=== PATIENT | male | born 1940 | race Caucasian/White ===

== ENCOUNTER 2016-03-04 | Outpatient (CLI) | payer MEDICARE, OTHER | END 2016-03-04 08:45 | disposition critical access hospital (66) | DX: R04.0 Epistaxis (principal) | CPT/HCPCS: A0425; A0429 ==

== ENCOUNTER 2016-03-04 08:53 | Emergency (ER) | payer MEDICARE, OTHER ==
[2016-03-04] MEDS ORDERED: LIDOCAINE 1%-EPI 1:100000 20 ML MDV ONE (09:38)
== END 2016-03-04 11:07 | disposition home or self-care (01) ==
DX: R04.0 Epistaxis (principal); I10 Essential (primary) hypertension; E11.9 Type 2 diabetes mellitus without complications; Z79.4 Long term (current) use of insulin; I25.10 Atherosclerotic heart disease of native coronary artery without angina pectoris; Z95.1 Presence of aortocoronary bypass graft; Z79.82 Long term (current) use of aspirin

== ENCOUNTER 2017-02-17 12:12 | Outpatient (CLI) | payer MEDICARE ==
--- NOTE | 2017-02-19 10:17 | CT Report ---
DATE OF SERVICE: 02/17/[address]: 02/17/2017 No comparison. INDICATION: Unspecified dementia without behavioral disturbance. TECHNIQUE: Noncontrast axial imaging of the head with coronal reformat. In accordance with CT protocol optimization, one or more of the following dose reduction techniques were utilized for this exam: Automated exposure control, adjustment of mA and/or KV based on patient size, or use of iterative reconstructive technique. FINDINGS There are periventricular and deep white matter low attenuating foci consistent with chronic small vessel ischemic changes. No evidence of territorial edema. No intracranial mass or acute intracranial hemorrhage. There is mild parenchymal volume loss with ex vacuo dilation of the ventricles. The paranasal sinuses and mastoid air cells appear well aerated. No calvarial fracture. Soft tissues and orbits grossly unremarkable. IMPRESSION: Chronic appearing microangiopathic changes. No evidence of acute intracranial process. TD: 02/17/2017 20:16 [place]
== END 2017-02-17 12:13 | disposition home or self-care (01) ==
LOC: DI 12:12
PROVIDERS: ATTEND Internal Medicine
DX: F03.90 Unspecified dementia, unspecified severity, without behavioral disturbance, psychotic disturbance, mood disturbance, and anxiety (principal)
CPT/HCPCS: 70450

== ENCOUNTER 2017-06-04 20:11 | Outpatient (CLI) | payer MEDICARE | END 2017-06-04 20:12 | disposition EMS.NT | LOC: EMS 20:11 | PROVIDERS: ATTEND Surgery | DX: R53.1 Weakness (principal); W18.39XA Other fall on same level, initial encounter; Y92.003 Bedroom of unspecified non-institutional (private) residence as the place of occurrence of the external cause ==

== ENCOUNTER 2017-06-30 13:53 | Outpatient (CLI) | payer MEDICARE ==
--- NOTE | 2017-06-30 17:35 | XRAY Report ---
THREE VIEW RIGHT KNEE: 06/30/2017 CLINICAL INDICATION: Persistent pain. FINDINGS: AP, lateral, sunrise views of the right knee demonstrate no evidence of fracture or dislocation. No effusion is present. No foreign body is seen in the soft tissues. IMPRESSION: NORMAL RIGHT KNEE. TD: 06/30/2017 15:26
== END 2017-06-30 13:54 | disposition home or self-care (01) ==
LOC: DI 13:53
PROVIDERS: ATTEND Internal Medicine
DX: M25.561 Pain in right knee (principal)

== ENCOUNTER 2018-05-27 14:21 | Outpatient (CLI) | payer SELFPAY | END 2018-05-27 14:22 | disposition EMS.NT | LOC: EMS 14:21 | PROVIDERS: ATTEND Surgery | DX: Z03.89 Encounter for observation for other suspected diseases and conditions ruled out (principal) ==

== ENCOUNTER 2018-09-25 10:33 | Outpatient (CLI) | payer MEDICARE, OTHER | END 2018-09-25 10:34 | disposition critical access hospital (66) | LOC: EMS 10:33 | PROVIDERS: ATTEND Surgery | DX: R55 Syncope and collapse (principal) | CPT/HCPCS: A0425; A0429 ==

== ENCOUNTER 2018-09-25 10:41 | Emergency (ER) | payer MEDICARE, OTHER ==
[2018-09-25] MEDS ORDERED: SODIUM CHLORIDE 0.9% 1,000 ML IV ONE (10:58)
--- NOTE | 2018-09-25 11:00 | ED Physician Documentation ---
PD HPI SYNCOPE - Stated complaint Stated Complaint: SYNCOPE - History obtained from History obtained from: Patient, Family - History of Present Illness Witnessed: Witnessed Timing - onset: Today Duration: Minutes Preceding symptoms: Vision changes, Light headed, Generalized weakness Associated symptoms: Vision changes Contributing factors: Other (hot shower) Injury occurred: None Similar symptoms before: Has not had sx before Recently seen: Not recently seen - Additional information Additional information: 77-year-old male with advanced dementia took his blood pressure medications this morning and then got himself into the shower. His states that she usually assists with his showers and she heard him going to the shower went in to see him in the shower and he stated that he felt a bit faint and wanted to get out. She is brought him here to the emergency department now for evaluation. The patient denies any use of Viagra. He states that shower was hot. Review of Systems Constitutional: denies: Fever Eyes: denies: Decreased vision Ears: denies: Ear pain Nose: denies: Congestion Throat: denies: Sore throat Cardiac: denies: Chest pain / pressure Respiratory: denies: Dyspnea, Cough GI: denies: Abdominal Pain, Nausea, Vomiting : denies: Dysuria, Frequency Skin: denies: Rash Musculoskeletal: denies: Neck pain, Back pain Neurologic: reports: Generalized weakness PD PAST MEDICAL HISTORY - Past Medical History Cardiovascular: Hypertension, High cholesterol, Coronary artery disease Endocrine/Autoimmune: Type 2 diabetes GI: None : None Musculoskeletal: Chronic back pain - Past Surgical History Past Surgical History: Yes Ortho: Shoulder arthroplasty, Spine surgery Cardiovascular: CABG - Present Medications Home Medications: Ambulatory Orders Medication Instructions Recorded Confirmed Hydrchlorthazide 12.5 mg PO DAILY 08/14/12 08/14/12 Insulin Glargine,Hum.rec.anlog 12 HS 08/14/12 08/14/12 [Lantus Solostar] Metformin HCl 1,000 mg PO BID 08/14/12 08/14/12 Atorvastatin Calcium 20 mg PO DAILY 03/04/16 03/04/16 Carvedilol 3.125 mg PO DAILY 03/04/16 03/04/16 Losartan Potassium 100 mg PO DAILY 03/04/16 03/04/16 Omeprazole 20 mg PO DAILY 03/04/16 03/04/16 - Allergies Allergies/Adverse Reactions: Allergies Allergy/AdvReac Type Severity Reaction Status Date / Time atenolol AdvReac Mild Nausea Verified 09/25/18 10:59 - Social History Does the pt smoke?: No Smoking Status: Never smoker Does the pt drink ETOH?: Yes Does the pt have substance abuse?: No - POLST Patient has POLST: No PD ED PE NORMAL - Vitals Vital signs reviewed: Yes (hypertensive ) - General General: No acute distress, Well developed/nourished - HEENT HEENT: Atraumatic, PERRL, EOMI - Neck Neck: Supple, no meningeal sign, No bony TTP - Cardiac Cardiac: RRR, No murmur - Respiratory Respiratory: No respiratory distress, Clear bilaterally - Abdomen Abdomen: Soft, Non tender, No organomegaly - Back Back: No CVA TTP, No spinal TTP - Derm Derm: Normal color, Warm and dry, No rash - Extremities Extremities: No deformity, No edema - Neuro Neuro: suction plate roller hand 2-12 intact, No motor deficit, No sensory deficit, Normal speech Eye Opening: Spontaneous Motor: Obeys Commands Verbal: Confused GCS Score: 14 - Psych Psych: Normal mood, Normal affect Results - Vitals Vitals: Vital Signs - 24 hr 09/25/18 09/25/18 10:54 12:32 Temperature 36.8 C Heart Rate 70 64 Respiratory 18 12 Rate Blood Pressure 134/68 H 145/84 H O2 Saturation 99 98 Oxygen O2 Source Room air - EKG (time done) 1048 Rate: Rate (enter#) (62) Rhythm: NSR Intervals: LBBB Compare to prior EKG: Unchanged from prior EKG (SPT 08-14-12 no sig change ) Computer interpretation: Agree with computer - Labs Labs: Laboratory Tests 09/25/18 09/25/18 11:21 11:21 WBC 7.2 RBC 4.86 Hgb 14.0 Hct 42.8 MCV 88.1 MCH 28.8 MCHC 32.7 RDW 13.2 Plt Count 182 MPV 10.0 Neut # (Auto) 4.3 Lymph # (Auto) 2.3 [place] # (Auto) 0.5 Eos # (Auto) 0.1 Baso # (Auto) 0.0 Absolute Nucleated RBC 0.00 Nucleated RBC % 0.0 Sodium 142 Potassium 4.8 Chloride 108 Carbon Dioxide 22 Anion Gap 12.0 BUN 23 H Creatinine 1.4 H Estimated GFR (MDRD) 49 L Glucose 168 H Calcium 8.9 Total Bilirubin 0.6 AST 17 ALT 20 Alkaline Phosphatase 50 Total Protein 7.2 Albumin 3.9 Globulin 3.3 Albumin/Globulin Ratio 1.2 Lipase 33 Procedures - IVC sono (time) 1057 Bedside IVC sono: IVC measures (cm) (1.04), IVC collapsed c insp (cm) (complete), Dehydration (ests 1-2 liter deficit) PD MEDICAL DECISION MAKING - ED course Complexity details: reviewed results, re-evaluated patient, considered differential, d/w patient, d/w family ED course: 77-year-old male with history of hypertension and advanced dementia got into the shower and felt faint he did not have a syncopal episode he was transported to [facility] by ambulance and he is administered saline after he is found to be dehydrated on interrogation of the inferior vena cava. He feels much improved at the conclusion of treatment. Departure - Departure Disposition: 01 Home, Self Care Clinical Impression: Dehydration Condition: Stable Instructions: ED Dehydration Follow-Up: Morro Nunez MD [Primary Care Provider] - Discharge Date/Time: 09/25/18 12:38
[2018-09-25 11:34] LABS: BASOPHILS % (AUTO) 0.6 %; EOSINOPHILS # (AUTO) 0.1 10^3/uL (0.0-0.7); EOSINOPHILS % (AUTO) 1.8 %; LYMPHOCYTES # (AUTO) 2.3 10^3/uL (1.5-3.5); LYMPHOCYTES % (AUTO) 31.2 %; MEAN CORPUSCULAR HEMOGLOBIN 28.8 pg (27.0-31.0); MEAN CORPUSCULAR HGB CONC 32.7 g/dL (32.0-36.0); MEAN CORPUSCULAR VOLUME 88.1 fL (80.0-94.0); MONOCYTES # (AUTO) 0.5 10^3/uL (0.0-1.0); MONOCYTES % (AUTO) 7.1 %; NEUTROPHILS # (AUTO) 4.3 10^3/uL (1.5-6.6); NEUTROPHILS % (AUTO) 58.9 %; PLT - PLATELET COUNT 182 10^3/uL (130-450); RED BLOOD COUNT 4.86 10^6/uL (4.70-6.10); RED CELL DISTRIBUTION WIDTH 13.2 % (12.0-15.0); WHITE BLOOD COUNT 7.2 x10^3/uL (4.8-10.8)
[2018-09-25 11:55] LABS: ALBUMIN 3.9 g/dL (3.2-5.5); ALBUMIN/GLOBULIN RATIO 1.2 (1.0-2.2); BILIRUBIN,TOTAL 0.6 mg/dL (0.2-1.0); CALCIUM 8.9 mg/dL (8.5-10.3); CREATININE 1.4 mg/dL (0.6-1.2); TOTAL PROTEIN 7.2 g/dL (6.7-8.2)
[2018-09-25 12:34] VITALS: BP 145/84
== END 2018-09-25 12:38 | disposition home or self-care (01) ==
LOC: EDUNIT# → ED 10:41
DX: E86.0 Dehydration (principal); I44.7 Left bundle-branch block, unspecified; I10 Essential (primary) hypertension; E11.9 Type 2 diabetes mellitus without complications; Z79.4 Long term (current) use of insulin; F03.90 Unspecified dementia, unspecified severity, without behavioral disturbance, psychotic disturbance, mood disturbance, and anxiety
CPT/HCPCS: 36415; 80053; 83690; 85025; 93005; 96360; 99284

== ENCOUNTER 2019-11-02 12:54 | Outpatient (CLI) | payer MEDICARE, OTHER | END 2019-11-02 12:55 | disposition critical access hospital (66) | LOC: EMS 12:54 | PROVIDERS: ATTEND Surgery | DX: R55 Syncope and collapse (principal); R53.1 Weakness | CPT/HCPCS: A0425; A0427 ==

== ENCOUNTER 2019-11-02 13:05 | Inpatient (IN) | payer MEDICARE, OTHER ==
--- NOTE | 2019-11-02 13:14 | ED Physician Documentation ---
PD HPI SYNCOPE - Stated complaint Stated Complaint: POSS SYNCOPE - History obtained from History obtained from: Patient, EMS - Additional information Additional information: History initially is from the patient and EMS, the is not here initially but my understanding is that she is coming. This is a 78-year-old gentleman with history of four-vessel bypass and dementia who either had a brief syncopal episode or was just dizzy and weak getting off the toilet today. Report from the paramedics is that he was also "out of it" last night. Patient says he remembers the episode but is a poor historian generally. Review of Systems Unable to obtain: Dementia PD PAST MEDICAL HISTORY - Past Medical History Cardiovascular: Hypertension, High cholesterol, Coronary artery disease Endocrine/Autoimmune: Type 2 diabetes GI: None : None Musculoskeletal: Chronic back pain - Past Surgical History Past Surgical History: Yes Ortho: Shoulder arthroplasty, Spine surgery Cardiovascular: CABG - Present Medications Home Medications: Ambulatory Orders Medication Instructions Recorded Confirmed Hydrchlorthazide 12.5 mg PO DAILY 08/14/12 08/14/12 Insulin Glargine,Hum.rec.anlog 12 HS 08/14/12 08/14/12 [Lantus Solostar] Metformin HCl 1,000 mg PO BID 08/14/12 08/14/12 Atorvastatin Calcium 20 mg PO DAILY 03/04/16 03/04/16 Losartan Potassium 100 mg PO DAILY 03/04/16 03/04/16 Omeprazole 20 mg PO DAILY 03/04/16 03/04/16 carvediloL [Carvedilol] 3.125 mg PO DAILY 03/04/16 03/04/16 - Allergies Allergies/Adverse Reactions: Allergies Allergy/AdvReac Type Severity Reaction Status Date / Time atenolol AdvReac Mild Nausea Verified 09/25/18 10:59 - Social History Does the pt smoke?: No Smoking Status: Former smoker Does the pt drink ETOH?: Yes Does the pt have substance abuse?: No - POLST Patient has POLST: Yes POLST Status: Limited Interventions (but wants CPR) PD ED PE NORMAL - Vitals Vital signs reviewed: Yes - General General: No acute distress, Other (He is alert and oriented to person and place but not time or events.) - HEENT HEENT: PERRL, EOMI - Neck Neck: Supple, no meningeal sign, No bony TTP - Cardiac Cardiac: RRR, No murmur, Other (Well-healed sternotomy scar) - Respiratory Respiratory: No respiratory distress, Clear bilaterally - Abdomen Abdomen: Non tender - Derm Derm: Normal color, Warm and dry, No rash - Extremities Extremities: No edema, No calf tenderness / cord - Neuro Neuro: bulldozer/loader/compactor/scraper 2-12 intact, No motor deficit, No sensory deficit, Normal speech Eye Opening: Spontaneous Motor: Obeys Commands Verbal: Confused GCS Score: 14 Results - Vitals Vitals: Vital Signs - 24 hr 11/02/19 11/02/19 11/02/19 13:06 13:20 15:27 Temperature 36.3 C L Heart Rate 83 83 74 Respiratory 16 16 22 Rate Blood Pressure 124/59 L 124/59 L 120/62 O2 Saturation 99 92 93 Oxygen O2 Source Room air - EKG (time done) 1317 Rate: Rate (enter#) (81) Rhythm: NSR Intervals: LBBB Computer interpretation: Agree with computer - Labs Labs: Laboratory Tests 11/02/19 11/02/19 11/02/19 13:30 13:30 13:30 WBC 5.0 RBC 4.69 L Hgb 14.0 Hct 42.0 MCV 89.6 MCH 29.9 MCHC 33.3 RDW 13.6 Plt Count 106 L MPV 10.2 Neut # (Auto) Not Reportable Lymph # (Auto) Not Reportable [place] # (Auto) Not Reportable Eos # (Auto) Not Reportable Baso # (Auto) Not Reportable Absolute Nucleated RBC Not Reportable Total Counted 100 Band Neuts % (Manual) 3 Abnorm Lymph % (Manual) 0 Nucleated RBC % Not Reportable Neutrophils # (Manual) 3.9 Lymphocytes # (Manual) 0.9 L Monocytes # (Manual) 0.2 Eosinophils # (Manual) 0.1 Basophils # (Manual) 0.0 Differential Comment MANUAL DIFFERENTIAL Manual Slide Review Indicated Platelet Estimate NORMAL (130-450,000) Platelet Morphology 1+ LARGE PLATELETS RBC Morph Micro Appear NORMAL APPEARANCE PT 13.9 H INR 1.3 H D-Dimer > 1050.0 H Sodium 136 Potassium 4.0 Chloride 98 L Carbon Dioxide 22 Anion Gap 16.0 H BUN 25 H Creatinine 1.5 H Estimated GFR (MDRD) 45 L Glucose 207 H Lactic Acid Calcium 8.8 Total Bilirubin 1.3 H AST 28 ALT 29 Alkaline Phosphatase 45 Troponin I High Sens Total Protein 7.3 Albumin 3.7 Globulin 3.6 Albumin/Globulin Ratio 1.0 Lipase 21 L 11/02/19 11/02/19 13:30 13:30 WBC RBC Hgb Hct MCV MCH MCHC RDW Plt Count MPV Neut # (Auto) Lymph # (Auto) [place] # (Auto) Eos # (Auto) Baso # (Auto) Absolute Nucleated RBC Total Counted Band Neuts % (Manual) Abnorm Lymph % (Manual) Nucleated RBC % Neutrophils # (Manual) Lymphocytes # (Manual) Monocytes # (Manual) Eosinophils # (Manual) Basophils # (Manual) Differential Comment Manual Slide Review Platelet Estimate Platelet Morphology RBC Morph Micro Appear PT INR D-Dimer Sodium Potassium Chloride Carbon Dioxide Anion Gap BUN Creatinine Estimated GFR (MDRD) Glucose Lactic Acid 2.8 H Calcium Total Bilirubin AST ALT Alkaline Phosphatase Troponin I High Sens 122.3 H* Total Protein Albumin Globulin Albumin/Globulin Ratio Lipase - Rads (name of study) CT PA Radiology: EMP read contemporaneously (Bilateral PEs, especially left lower lobe) PD MEDICAL DECISION MAKING - ED course ED course: arrived and I spoke with her about 1:30 PM. She said that he was agitated and confused more than normal last night and today had a fever of 101.8 and then had a several minute episode of syncope and was generally weak. No reported cough or other complaints. His troponin was positive but his EKG was nonischemic. He did not complain of chest pain, but he is not a great historian. His sats were notable though, vacillating between 88 and 92% on the monitor for the most part. His d-dimer is quite positive and sent for CTPA showing moderate clot burden. Heparin bolus and drip were started. PESI score 167 pts, Class V (age/male/increased disorientation, sats at times down to 88% RA). Spoke with Dr. Tyson for admission at 4:29 PM. Departure - Departure Disposition: 66 [facility] DC/Xfer Clinical Impression: Weakness Pulmonary embolism Qualifiers: Pulmonary embolism type: other Chronicity: acute Acute cor pulmonale presence: unspecified Qualified Code(s): I26.99 - Other pulmonary embolism without acute cor pulmonale Dementia Qualifiers: Dementia type: unspecified type Dementia behavioral disturbance: without behavioral disturbance Qualified Code(s): F03.90 - Unspecified dementia without behavioral disturbance Condition: Serious
[2019-11-02 13:39] LABS: BASOPHILS % (AUTO) 0.4 %; EOSINOPHILS % (AUTO) 0.4 %; LYMPHOCYTES % (AUTO) 16.5 %; MEAN CORPUSCULAR HEMOGLOBIN 29.9 pg (27.0-31.0); MEAN CORPUSCULAR HGB CONC 33.3 g/dL (32.0-36.0); MEAN CORPUSCULAR VOLUME 89.6 fL (80.0-94.0); MEAN PLATELET VOLUME 10.2 fL (7.4-11.4); NEUTROPHILS % (AUTO) 75.9 %; PLT - PLATELET COUNT 106 10^3/uL (130-450); RED BLOOD COUNT 4.69 10^6/uL (4.70-6.10); RED CELL DISTRIBUTION WIDTH 13.6 % (12.0-15.0)
[2019-11-02 13:44] LABS: ABNORMAL LYMPHS % (MANUAL) 0 %
[2019-11-02 13:56] LABS: ALBUMIN 3.7 g/dL (3.2-5.5); BILIRUBIN,TOTAL 1.3 mg/dL (0.2-1.0); CALCIUM 8.8 mg/dL (8.5-10.3); CREATININE 1.5 mg/dL (0.6-1.2); TOTAL PROTEIN 7.3 g/dL (6.7-8.2)
--- NOTE | 2019-11-02 13:57 | XRAY Report ---
PROCEDURE: Chest 1 View X-Ray INDICATIONS: Syncope TECHNIQUE: One view of the chest was acquired. COMPARISON: None FINDINGS: Surgical changes and devices: Post CABG changes are seen. Postoperative change of the left shoulder can be seen. Lungs and pleura: An incomplete inspiratory result is noted, with low lung volumes and crowding of t he vascular markings. No focal infiltrates are seen. No large pneumothorax or large pleural effusion can be seen. Mediastinum: Mediastinal contours appear normal. Heart size is normal. Bones and chest wall: No suspicious bony lesions. Age-appropriate degenerative changes are seen. O verlying soft tissues appear unremarkable. IMPRESSION: Unremarkable portable chest for age, with note made of postoperative and degenerative change. Reviewed by: Eitan Castillo MD on 11/02/2019 12:56 PM [place] Approved by: Eitan Castillo MD on 11/02/2019 12:56 PM [place] Station ID: [id number]
[2019-11-02 14:05] LABS: BAND NEUTROPHILS % (MANUAL) 3 %; DIFFERENTIAL COMMENT MANUAL DIFFERENTIAL; EOSINOPHILS # (MANUAL) 0.1 10^3/uL (0-0.7); LYMPHOCYTES # (MANUAL) 0.9 10^3/uL (1.5-3.5); LYMPHOCYTES % (MANUAL) 17 %; MONOCYTES # (MANUAL) 0.2 10^3/uL (0.0-1.0); PLATELET ESTIMATE, MANUAL NORMAL (130-450,000) (NORMAL); PLATELET MORPHOLOGY 1+ LARGE PLATELETS (NORMAL); RBC MORPHOLOGY (MULTIPLE) NORMAL APPEARANCE (NORMAL)
[2019-11-02] MEDS ORDERED: HEPARIN 5,000 UNIT/ML VIAL IVP STA (14:18)
[2019-11-02] MEDS ORDERED: METOPROLOL TARTRATE 50 MG TABLET PO STA (14:18)
[2019-11-02] MEDS ORDERED: HEPARIN 25,000 UNITS/500 ML PREMIX IV SCH (15:00)
[2019-11-02 15:15] LABS: INR 1.3 (0.8-1.2); PT - PROTHROMBIN TIME 13.9 secs (9.9-12.6)
[2019-11-02 15:28] LABS: D-DIMER > 1050.0 ng/mL (200.0-255.0)
[2019-11-02] MEDS ORDERED: SODIUM CHLORIDE FLUSH 0.9% 10 ML SYRINGE IVP PRN (16:26)
[2019-11-02] MEDS ORDERED: oxyCODONE 5 MG TABLET PO PRN (16:26)
[2019-11-02] MEDS ORDERED: ONDANSETRON ODT 4 MG TABLET TL PRN (16:26)
[2019-11-02] MEDS ORDERED: ONDANSETRON 4 MG/2 ML VIAL IVP PRN (16:26)
[2019-11-02] MEDS ORDERED: IOVERSOL 320 100 ML VIAL IVP ONE (16:38)
--- NOTE | 2019-11-02 16:47 | CT Report ---
PROCEDURE: ANGIO CHEST W/WO INDICATIONS: dyspnea, low sat high dimer CONTRAST: IV CONTRAST: Optiray 320 ml: 66 PO CONTRAST: *NO PO CONTRAST TECHNIQUE: After the administration of intravenous contrast, 2 mm thick sections acquired from the pulmonary api cuca to the posterior costophrenic angles. 3-dimensional maximum intensity projection (MIP) coronal a nd sagittal reformats were then acquired through the thorax. For radiation dose reduction, the follow ing was used: automated exposure control, adjustment of mA and/or kV according to patient size. COMPARISON: None. FINDINGS: Image quality: Image degraded by respiratory motion artifact. Pulmonary arteries: There are intraluminal filling defects involving the proximal left lower lobar p ulmonary arteries extending into the basilar segmental pulmonary arteries. There are also intralumina l filling defects involving the left upper lobe segmental pulmonary arteries. Additionally, intralumi nal filling defects are noted in the basilar segments of the right lower lobe. No enlargement of the main pulmonary artery to suggest acute right-sided heart strain. No flattening of the interventricula r septum. No reflux of contrast into the IVC. Lungs and pleura: Patchy bibasilar opacities. There is a small peripheral consolidation involving the superior segment of the left upper lobe measuring approximately 1.4 cm in transverse dimension and 1 .1 cm in AP dimension. No pneumothorax. No pleural effusion. Central and peripheral airways are pat ent. Mediastinum: Heart size is enlarged, without pericardial effusion. Atherosclerotic calcifications o f the aortic arch and coronary arteries are visualized. Postoperative changes from prior sternotomy a nd revascularization procedure. No mediastinal or hilar adenopathy. Thoracic aorta is normal in latricia rhianna and enhancement. Esophagus is normal in caliber, without hiatal hernia. Bones and chest wall: No suspicious bony lesions. Ribs and thoracic spine appear intact throughout. The thyroid is normal. No axillary or supraclavicular adenopathy. Abdomen: Visualized upper abdominal solid organs appear normal in the early arterial phase of enhanc ement. IMPRESSION: 1. Acute pulmonary emboli involving the left lower lobar pulmonary arteries, left basilar segmental p ulmonary arteries, and left upper lobe segmental pulmonary arteries. Additional acute pulmonary embol i noted basilar segmental pulmonary arteries of right lower lobe. No acute right-sided heart strain i dentified. 2. A 1.4 x 1.1 cm peripheral, pleural-based consolidation superior segment of the left lower lobe whi ch may represent a pulmonary infarction. Other considerations include pneumonia versus neoplastic pro cess. Follow-up imaging recommended. 3. Mild cardiomegaly and changes from previous coronary arterial bypass procedure. Findings were discussed with Dr. Real of the emergency department at 1640 hrs. Reviewed by: Ernesto Lagunas MD on 11/02/2019 4:46 PM PDT Approved by: Ernesto Lagunas MD on 11/02/2019 4:46 PM PDT Station ID: [id number]
--- NOTE | 2019-11-02 16:50 | HISTORY & PHYSICAL EXAMINATION ---
Chief Complaint - Chief Complaint Chief Complaint: syncope History of Present Illness - Admitted From Admitted From:: Home/EMS/Er - History Obtained From Records Reviewed: [facility] History obtained from: Dr. Real Exam Limitations: Memory - History of Present Illness HPI Comment/Other: He lives at home with his and she takes care of him due to his dementia. He is able to do his ADLs with prompting and is described as healthy. Last night he was described as "not himself". he wouldn't stay asleep, seemed upset, but no specific complaints. Up and down. No recent change in diet or meds. No fever, cp, sob, abd pain. Today, as he was on the toilet, had syncope so brought to ER. Seen by Dr. Real who found hypoxia and elevated troponin. EKG without acute changes. patient was noncontibutory for the history. D Dimer was elevated in followup and found to have a large left sided PE on CTA. PESI score is high and he is brought in for treatment. is described as NOT wanting transfer for procedures. History - Past Medical History Cardiovascular: reports: Hypertension, High cholesterol, Coronary artery disease, Other (respiratory arrest with shoulder surgery, twice) Respiratory: reports: Sleep apnea (severe, dx in 2003 in [place] and repeat study 2012 ), CPAP use Endocrine/Autoimmune: reports: Type 2 diabetes GI: reports: None : reports: None HEENT: reports: Chronic sinusitis (with turbinate reduction under local with balloon sinuplasty of deviated septum) Psych: reports: Claustrophobia Musculoskeletal: reports: Osteoarthritis (both shoulders), Chronic back pain (with hx of lumbar fusion) MRSA Hx?: No - Past Surgical History General: reports: Appendectomy Ortho: reports: Shoulder arthroplasty (left 2014 twice with respiratory arrest twice), Spine surgery (lumbar fusion) Cardiovascular: reports: CABG - Family & Social History Family History Comment/Other: Dad at age 61 but he cannot remember of what. Mom at age 80, he thinks of old age. Neither parent had hypercoagulable disorder but he just cannot quite remember. 1 brother and 2 sisters are healthy, he thinks. 3 children are healthy, he thinks. Living arrangement: At home Living Situation: With spouse/s.o. 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 Came here approximately 2011. He is from [facility]. Spent his entire life there. Came up here to [place] an uncle and [place]. . Lives in [place]. Smoked 2 ppd for 20 years and quite 1998. 1 drink a month. No hx of recreational substance abuse. - Substance History Use: Uses substance without health or social issues: NONE Abuse: Recurrent use of substance despite neg consequences: NONE Dependence: Experiences withdrawal or developed tolerances: NONE - POLST Patient has POLST: Yes POLST Status: Limited Interventions (but wants CPR) Meds/Allgy - Home Medications Home Medications: Ambulatory Orders Medication Instructions Recorded Confirmed Hydrchlorthazide 12.5 mg PO DAILY 08/14/12 08/14/12 Insulin Glargine,Hum.rec.anlog 12 HS 08/14/12 08/14/12 [Lantus Solostar] Metformin HCl 1,000 mg PO BID 08/14/12 08/14/12 Atorvastatin Calcium 20 mg PO DAILY 03/04/16 03/04/16 Losartan Potassium 100 mg PO DAILY 03/04/16 03/04/16 Omeprazole 20 mg PO DAILY 03/04/16 03/04/16 carvediloL [Carvedilol] 3.125 mg PO DAILY 03/04/16 03/04/16 - Allergies Allergies/Adverse Reactions: Allergies Allergy/AdvReac Type Severity Reaction Status Date / Time atenolol AdvReac Mild Nausea Verified 09/25/18 10:59 Review of Systems - Constitutional Constitutional: denies: Fatigue, Fever, Chills, Malaise, Poor appetite - Eyes Eyes: reports: Vision loss (Chronic over the years he says). denies: Pain, Irritation, Amaurosis, Blurred vision - Ears, Nose & Throat Ears, Nose & Throat: reports: Hearing loss (Mild). denies: Hearing aids, Nasal congestion, Postnasal drainage, Dentures, Sore throat, Hoarseness - Cardiovascular Cariovascular: reports: Syncope (But he cannot remember that he passed out on the toilet this morning. He does not remember it happening.). denies: Pa lpitations, Chest pain, Edema, Lightheadedness, Exertional dyspnea, Decr. exercise tolerance - Respiratory Respiratory: reports: Snoring, Apnea. denies: Cough, Sputum production, Wheezing, SOB at rest, SOB with exertion - Gastrointestinal Gastrointestinal: denies: Abdominal pain, Abdominal distention, Constipation, Diarrhea, Change in bowel habits - Genitourinary Genitourinary: reports: Frequency (Drives him crazy. Is been ongoing for years.), Urgency, Incontinence, Nocturia. denies: Dysuria - Musculoskeletal Musculoskeletal: reports: Back pain (Is mild. He does not feel it limits him.), Joint pain (Shoulders, knees). denies: Muscle pain, Muscle aches, Stiffness - Integumentary Integumentary: denies: Rash, Pruritis, Lesions, Dryness - Neurological Neurological: reports: Memory problems, Pre-existing deficit. denies: General weakness, Focal weakness, Headache, Dizziness - Psychiatric Psychiatric: denies: Depression, Anxiety, Suicidal, Hallucinations, Homicidal - Endocrine Endocrine: denies: Polyuria, Polydypsia, Polyphagia - Hematologic/Lymphatic Hematologic/Lymphatic: denies: Anemia, Bruising, Petechiae, Blood clots Prior Level of Functionality: has told the emergency room physician that she is with him 08/09. She takes care of him. He protest and says that he does not need "that much help". He is kaye and maintaining that he takes care of himself with regards to feeding, dressing, going to the bathroom. He can take his own baths. He cannot remember if he drives on his own or not. He denies any durable medical equipment. Exam - Vital Signs Reviewed Vital Signs: Yes Vital Signs: Vital Signs x48h Temp Pulse Resp BP Pulse Ox 11/02/19 15:27 74 22 120/62 93 11/02/19 13:20 83 16 124/59 L 92 11/02/19 13:06 36.3 C L 83 16 124/59 L 99 - Physical Exam General Appearance: positive: No acute distress, Alert, Other (sitting up eating dinner and watching a football game, "call me Art." has left since she doesn't like to drive at night. 5'10" and 102 kg. Looks stated age. Male pattern baldness.) Eyes Bilateral: positive: PERRL, EOMI ENT: positive: Pharynx nml Neck: positive: No JVD. negative: Stiff neck Respiratory: positive: Chest non-tender, No respiratory distress. negative: Wheezes, Rales, Rhonchi Cardiovascular: positive: Regular rate & rhythm, Systolic murmur. negative: Gallop/S4, Friction rub Peripheral Pulses: positive: 1+ Abdomen: positive: Non-tender, No organomegaly, Nml bowel sounds, No distention, Other (moderately overweight panus) Skin: positive: Warm, Dry Extremities: positive: Full ROM, No pedal edema. negative: Hira's sign/cords Neurologic/Psychiatric: positive: CN's nml (2-12), Motor nml, Disoriented to time, Other (He protest the fact that he has dementia. He says "my memory is just fine". But when I point out to him that he cannot tell me what his parents of, or is hesitant about when he came to live here, he does admit that he has some memory problems.) Conclusion/Plan - Problem List (1) Pulmonary embolism Conclusion/Plan: causing syncope. Plan: no provoking cause. He does not have hx of malignancy, nor is he on hormone therapy that would cause this. No hx of hypercoagulable disorder. Start lovenox but reduce dose from 80 mg bid to 60 mg bid due to GFR of 45. no tpa. Qualifiers: Pulmonary embolism type: other Chronicity: acute Acute cor pulmonale presence: unspecified Qualified Code(s): I26.99 - Other pulmonary embolism without acute cor pulmonale (2) Elevated troponin Conclusion/Plan: with a hx of CAD and ACB x 4. No hx of CHF. No current pain symptoms and EKG is neg. Plan: repeat troponins to trend. (3) VESTA on CPAP Conclusion/Plan: get CPAP from home (4) HTN (hypertension) Conclusion/Plan: no hx of CHF on list of problems and he denies any symptoms or hx of CHF, but he is on beta sindi and ARB. Will check with and get hx of old ECHO if possible. Plan: resume betablocker tonight and both to be given in am. Qualifiers: Hypertension type: essential hypertension Qualified Code(s): I10 - Essential (primary) hypertension (5) Type 2 diabetes mellitus, controlled Conclusion/Plan: hold off on glucophage while here. A1c. SS insulin. Qualifiers: Diabetes mellitus long-term insulin use: without regulatory affairs assistant use Diabetes mellitus complication status: without complication Qualified Code(s): E11.9 - Type 2 diabetes mellitus without complications (6) CKD (chronic kidney disease) stage 3, GFR 30-59 ml/min Conclusion/Plan: Since 2012 creat rising. Was 1.0>>1.4 and today 1.5. Plan: Monitor daily avoid nephrotoxic meds. (7) BPH (benign prostatic hyperplasia) Conclusion/Plan: I don't think he has frequency from hyperglycemia since his gluose in controlled. Plan: add flomax. Qualifiers: Lower urinary tract symptom presence: symptoms present - Lab Results Lab results reviewed: Yes Fish Bones: 11/02/19 13:30 11/02/19 13:30 - Diagnostic Imaging Results Diagnostic Imaging Results: positive: Final report reviewed Diagnostic Imaging Results Comments: CXR is unremarkable CTA of chest with acute PE of LLL pulmonary arteries, left basilar segmental pul arteries, and LYLA semental pulmonary arteries. Additional acute PE noted basilar segmental pulmonary arteries of RLL. No acute right sided strain. Possible pulm infarction of LLL with pleural based consolidation supeerior seg of LLL. - EKG Results EKG Interpreted Independently: No EKG Comparison: No prior EKG Core Measures - Anticipated LOS I expect patient to be DC'd or transferred within 96 hours.: Yes - DVT/VTE - Prophylaxis VTE/DVT Device ordered at admit?: Yes
[2019-11-02] MEDS ORDERED: SODIUM CHLORIDE 0.9% 1,000 ML IV SCH (17:00)
[2019-11-02] MEDS: SODIUM CHLORIDE FLUSH 0.9% 10 ML SYRINGE IVP SCH (18:23)
[2019-11-02] MEDS: TAMSULOSIN 0.4 MG CAPSULE PO SCH (20:34)
[2019-11-02] MEDS: ENOXAPARIN 100 MG/ML SYRINGE SUBQ SCH (20:34)
[2019-11-02] MEDS: carvediloL 3.125 MG TABLET PO SCH (20:34)
[2019-11-02] MEDS ORDERED: INSULIN ASPART 300 UNIT/3 ML PEN SUBQ SCH (21:00)
[2019-11-03] MEDS: SODIUM CHLORIDE FLUSH 0.9% 10 ML SYRINGE IVP SCH ×3 (02:06→15:53)
[2019-11-03 05:26] LABS: EOSINOPHILS # (AUTO) 0.1 10^3/uL (0.0-0.7); EOSINOPHILS % (AUTO) 2.3 %; HGB - HEMOGLOBIN 11.9 g/dL (14.0-18.0); MEAN CORPUSCULAR HEMOGLOBIN 28.9 pg (27.0-31.0); MEAN CORPUSCULAR HGB CONC 32.8 g/dL (32.0-36.0); MEAN CORPUSCULAR VOLUME 88.1 fL (80.0-94.0); MEAN PLATELET VOLUME 10.4 fL (7.4-11.4); MONOCYTES # (AUTO) 0.4 10^3/uL (0.0-1.0); MONOCYTES % (AUTO) 9.1 %; NEUTROPHILS # (AUTO) 2.4 10^3/uL (1.5-6.6); NEUTROPHILS % (AUTO) 63.1 %; PLT - PLATELET COUNT 108 10^3/uL (130-450); RED BLOOD COUNT 4.12 10^6/uL (4.70-6.10); RED CELL DISTRIBUTION WIDTH 13.5 % (12.0-15.0); WHITE BLOOD COUNT 3.8 x10^3/uL (4.8-10.8)
[2019-11-03 05:36] LABS: CALCIUM 8.2 mg/dL (8.5-10.3); CREATININE 1.2 mg/dL (0.6-1.2); MAGNESIUM 1.6 mg/dL (1.7-2.8); PHOSPHORUS 2.2 mg/dL (2.5-4.6)
[2019-11-03] MEDS: ACETAMINOPHEN 325 MG TABLET PO PRN (05:37)
[2019-11-03] MEDS ORDERED: POTASSIUM CHLORIDE 20 MEQ TABLET PO SCH (06:44)
[2019-11-03] MEDS ORDERED: NEUTRA-PHOS 250 MG TABLET PO SCH (07:00)
[2019-11-03] MEDS ORDERED: MAGNESIUM OXIDE 400 MG TABLET PO SCH (07:00)
[2019-11-03] MEDS: LOSARTAN 50 MG TABLET PO SCH (10:24)
[2019-11-03] MEDS: TAMSULOSIN 0.4 MG CAPSULE PO SCH (10:24)
[2019-11-03] MEDS: ENOXAPARIN 100 MG/ML SYRINGE SUBQ SCH ×2 (10:24→21:05)
[2019-11-03] MEDS: carvediloL 3.125 MG TABLET PO SCH ×2 (10:24→21:05)
[2019-11-03] MEDS: INSULIN ASPART 300 UNIT/3 ML PEN SUBQ SCH ×4 (10:25→21:05)
[2019-11-03 11:59] LABS: HEMOGLOBIN A1c% 6.4 % (4.27-6.07)
[2019-11-03 12:19] LABS: BILIRUBIN,URINE NEGATIVE (NEGATIVE); GLUCOSE, URINE (UA) NEGATIVE (NEGATIVE); KETONES,URINE (UA) NEGATIVE (NEGATIVE); LEUKOCYTE ESTERASE, URINE NEGATIVE (NEGATIVE); NITRITE,URINE NEGATIVE (NEGATIVE); OCCULT BLOOD,URINE SMALL (NEGATIVE); PH,URINE 5.5 PH (5.0-7.5); PROTEIN,URINE 30 mg/dL (NEGATIVE); UROBILINOGEN,URINE 0.2 (NORMAL) E.U./dL (NORMAL)
[2019-11-03 12:31] LABS: BACTERIA,URINE None Seen /HPF (None Seen); CLARITY,URINE CLEAR (CLEAR); RBC,URINE 0-5 /HPF (0-5); SQUAMOUS EPITHELIAL CELL,UR NONE SEEN (<= Few)
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
--- NOTE | 2019-11-03 15:42 | PROVIDER PROGRESS NOTE ---
Subjective - Prog Note Date Prog Note Date: 11/03/19 Prog Note Time: 16:28 - Subjective Subjective: he is up in chair. Objective - Vital Signs/Intake & Output Vital Signs: Vital Signs x48h Temp Pulse Resp BP Pulse Ox 11/03/19 12:00 36.6 C 77 18 131/59 H 95 11/03/19 08:00 36.9 C 67 16 133/59 H 94 Intake & Output: Intake & Output 10/31/19 11/01/19 11/02/19 11/03/19 23:59 23:59 23:59 23:59 Intake Total 480 1590 Output Total 600 750 Balance -120 840 - Lab Results Fish Bones: 11/03/19 05:10 11/03/19 05:10 Other Labs: Lab Results x24hrs 11/03/19 11/03/19 11/03/19 Range/Units 11:35 11:15 07:52 WBC (4.8-10.8) x10^3/uL RBC (4.70-6.10) 10^6/uL Hgb (14.0-18.0) g/dL Hct (42.0-52.0) % MCV (80.0-94.0) fL MCH (27.0-31.0) pg MCHC (32.0-36.0) g/dL RDW (12.0-15.0) % Plt Count (130-450) 10^3/uL MPV (7.4-11.4) fL Neut # (Auto) (1.5-6.6) 10^3/uL Lymph # (Auto) (1.5-3.5) 10^3/uL [place] # (Auto) (0.0-1.0) 10^3/uL Eos # (Auto) (0.0-0.7) 10^3/uL Baso # (Auto) (0.0-0.1) 10^3/uL Absolute Nucleated RBC x10^3/uL Nucleated RBC % /100WBC D-Dimer (200.0-255.0) ng/mL Sodium (135-145) mmol/L Potassium (3.5-5.0) mmol/L Chloride (101-111) mmol/L Carbon Dioxide (21-32) mmol/L Anion Gap (6-13) BUN (6-20) mg/dL Creatinine (0.6-1.2) mg/dL Estimated GFR (MDRD) (>89) Glucose (70-100) mg/dL POC Whole Bld Glucose 214 H 145 H (70 - 100) mg/dL Estimat Average Glucose (70-100) mg/dL Hemoglobin A1c % (4.27-6.07) % Lactic Acid (0.5-2.2) mmol/L Calcium (8.5-10.3) mg/dL Phosphorus (2.5-4.6) mg/dL Magnesium (1.7-2.8) mg/dL Troponin I High Sens (2.3-19.7) ng/L Urine Color YELLOW Urine Clarity CLEAR (CLEAR) Urine pH 5.5 (5.0-7.5) PH Ur Specific [place] 1.020 (1.002-1.030) Urine Protein 30 H (NEGATIVE) mg/dL Urine Glucose (UA) NEGATIVE (NEGATIVE) mg/dL Urine Ketones NEGATIVE (NEGATIVE) mg/dL Urine Occult Blood SMALL H (NEGATIVE) Urine Nitrite NEGATIVE (NEGATIVE) Urine Bilirubin NEGATIVE (NEGATIVE) Urine Urobilinogen 0.2 (NORMAL) (NORMAL) E.U./dL Ur Leukocyte Esterase NEGATIVE (NEGATIVE) Urine RBC 0-5 (0-5) /HPF Urine WBC 0-3 (0-3) /HPF Ur Squamous Epith Cells NONE SEEN (<= Few) Urine Bacteria None Seen (None Seen) /HPF Urine Culture Comments NOT INDICATED 11/03/19 11/03/19 11/03/19 Range/Units 05:10 05:10 05:10 WBC 3.8 L (4.8-10.8) x10^3/uL RBC 4.12 L (4.70-6.10) 10^6/uL Hgb 11.9 L (14.0-18.0) g/dL Hct 36.3 L (42.0-52.0) % MCV 88.1 (80.0-94.0) fL MCH 28.9 (27.0-31.0) pg MCHC 32.8 (32.0-36.0) g/dL RDW 13.5 (12.0-15.0) % Plt Count 108 L (130-450) 10^3/uL MPV 10.4 (7.4-11.4) fL Neut # (Auto) 2.4 (1.5-6.6) 10^3/uL Lymph # (Auto) 1.0 L (1.5-3.5) 10^3/uL [place] # (Auto) 0.4 (0.0-1.0) 10^3/uL Eos # (Auto) 0.1 (0.0-0.7) 10^3/uL Baso # (Auto) 0.0 (0.0-0.1) 10^3/uL Absolute Nucleated RBC 0.00 x10^3/uL Nucleated RBC % 0.0 /100WBC D-Dimer (200.0-255.0) ng/mL Sodium 137 (135-145) mmol/L Potassium 3.3 L (3.5-5.0) mmol/L Chloride 104 (101-111) mmol/L Carbon Dioxide 23 (21-32) mmol/L Anion Gap 10.0 (6-13) BUN 25 H (6-20) mg/dL Creatinine 1.2 (0.6-1.2) mg/dL Estimated GFR (MDRD) 59 L (>89) Glucose 153 H (70-100) mg/dL POC Whole Bld Glucose (70 - 100) mg/dL Estimat Average Glucose (70-100) mg/dL Hemoglobin A1c % (4.27-6.07) % Lactic Acid 1.2 (0.5-2.2) mmol/L Calcium 8.2 L (8.5-10.3) mg/dL Phosphorus 2.2 L (2.5-4.6) mg/dL Magnesium 1.6 L (1.7-2.8) mg/dL Troponin I High Sens (2.3-19.7) ng/L Urine Color Urine Clarity (CLEAR) Urine pH (5.0-7.5) PH Ur Specific [place] (1.002-1.030) Urine Protein (NEGATIVE) mg/dL Urine Glucose (UA) (NEGATIVE) mg/dL Urine Ketones (NEGATIVE) mg/dL Urine Occult Blood (NEGATIVE) Urine Nitrite (NEGATIVE) Urine Bilirubin (NEGATIVE) Urine Urobilinogen (NORMAL) E.U./dL Ur Leukocyte Esterase (NEGATIVE) Urine RBC (0-5) /HPF Urine WBC (0-3) /HPF Ur Squamous Epith Cells (<= Few) Urine Bacteria (None Seen) /HPF Urine Culture Comments 11/03/19 11/03/19 11/02/19 Range/Units 05:10 05:10 23:40 WBC (4.8-10.8) x10^3/uL RBC (4.70-6.10) 10^6/uL Hgb (14.0-18.0) g/dL Hct (42.0-52.0) % MCV (80.0-94.0) fL MCH (27.0-31.0) pg MCHC (32.0-36.0) g/dL RDW (12.0-15.0) % Plt Count (130-450) 10^3/uL MPV (7.4-11.4) fL Neut # (Auto) (1.5-6.6) 10^3/uL Lymph # (Auto) (1.5-3.5) 10^3/uL [place] # (Auto) (0.0-1.0) 10^3/uL Eos # (Auto) (0.0-0.7) 10^3/uL Baso # (Auto) (0.0-0.1) 10^3/uL Absolute Nucleated RBC x10^3/uL Nucleated RBC % /100WBC D-Dimer (200.0-255.0) ng/mL Sodium (135-145) mmol/L Potassium (3.5-5.0) mmol/L Chloride (101-111) mmol/L Carbon Dioxide (21-32) mmol/L Anion Gap (6-13) BUN (6-20) mg/dL Creatinine (0.6-1.2) mg/dL Estimated GFR (MDRD) (>89) Glucose (70-100) mg/dL POC Whole Bld Glucose (70 - 100) mg/dL Estimat Average Glucose 137 H (70-100) mg/dL Hemoglobin A1c % 6.4 H (4.27-6.07) % Lactic Acid 2.5 H (0.5-2.2) mmol/L Calcium (8.5-10.3) mg/dL Phosphorus (2.5-4.6) mg/dL Magnesium (1.7-2.8) mg/dL Troponin I High Sens 380.1 H* (2.3-19.7) ng/L Urine Color Urine Clarity (CLEAR) Urine pH (5.0-7.5) PH Ur Specific [place] (1.002-1.030) Urine Protein (NEGATIVE) mg/dL Urine Glucose (UA) (NEGATIVE) mg/dL Urine Ketones (NEGATIVE) mg/dL Urine Occult Blood (NEGATIVE) Urine Nitrite (NEGATIVE) Urine Bilirubin (NEGATIVE) Urine Urobilinogen (NORMAL) E.U./dL Ur Leukocyte Esterase (NEGATIVE) Urine RBC (0-5) /HPF Urine WBC (0-3) /HPF Ur Squamous Epith Cells (<= Few) Urine Bacteria (None Seen) /HPF Urine Culture Comments 11/02/19 11/02/19 11/02/19 Range/Units 23:40 19:49 19:11 WBC (4.8-10.8) x10^3/uL RBC (4.70-6.10) 10^6/uL Hgb (14.0-18.0) g/dL Hct (42.0-52.0) % MCV (80.0-94.0) fL MCH (27.0-31.0) pg MCHC (32.0-36.0) g/dL RDW (12.0-15.0) % Plt Count (130-450) 10^3/uL MPV (7.4-11.4) fL Neut # (Auto) (1.5-6.6) 10^3/uL Lymph # (Auto) (1.5-3.5) 10^3/uL [place] # (Auto) (0.0-1.0) 10^3/uL Eos # (Auto) (0.0-0.7) 10^3/uL Baso # (Auto) (0.0-0.1) 10^3/uL Absolute Nucleated RBC x10^3/uL Nucleated RBC % /100WBC D-Dimer (200.0-255.0) ng/mL Sodium (135-145) mmol/L Potassium (3.5-5.0) mmol/L Chloride (101-111) mmol/L Carbon Dioxide (21-32) mmol/L Anion Gap (6-13) BUN (6-20) mg/dL Creatinine (0.6-1.2) mg/dL Estimated GFR (MDRD) (>89) Glucose (70-100) mg/dL POC Whole Bld Glucose 231 H (70 - 100) mg/dL Estimat Average Glucose (70-100) mg/dL Hemoglobin A1c % (4.27-6.07) % Lactic Acid (0.5-2.2) mmol/L Calcium (8.5-10.3) mg/dL Phosphorus (2.5-4.6) mg/dL Magnesium (1.7-2.8) mg/dL Troponin I High Sens 403.2 H* 350.3 H* (2.3-19.7) ng/L Urine Color Urine Clarity (CLEAR) Urine pH (5.0-7.5) PH Ur Specific [place] (1.002-1.030) Urine Protein (NEGATIVE) mg/dL Urine Glucose (UA) (NEGATIVE) mg/dL Urine Ketones (NEGATIVE) mg/dL Urine Occult Blood (NEGATIVE) Urine Nitrite (NEGATIVE) Urine Bilirubin (NEGATIVE) Urine Urobilinogen (NORMAL) E.U./dL Ur Leukocyte Esterase (NEGATIVE) Urine RBC (0-5) /HPF Urine WBC (0-3) /HPF Ur Squamous Epith Cells (<= Few) Urine Bacteria (None Seen) /HPF Urine Culture Comments 11/02/19 11/02/19 Range/Units 17:55 13:30 WBC (4.8-10.8) x10^3/uL RBC (4.70-6.10) 10^6/uL Hgb (14.0-18.0) g/dL Hct (42.0-52.0) % MCV (80.0-94.0) fL MCH (27.0-31.0) pg MCHC (32.0-36.0) g/dL RDW (12.0-15.0) % Plt Count (130-450) 10^3/uL MPV (7.4-11.4) fL Neut # (Auto) (1.5-6.6) 10^3/uL Lymph # (Auto) (1.5-3.5) 10^3/uL [place] # (Auto) (0.0-1.0) 10^3/uL Eos # (Auto) (0.0-0.7) 10^3/uL Baso # (Auto) (0.0-0.1) 10^3/uL Absolute Nucleated RBC x10^3/uL Nucleated RBC % /100WBC D-Dimer > 1050.0 H (200.0-255.0) ng/mL Sodium (135-145) mmol/L Potassium (3.5-5.0) mmol/L Chloride (101-111) mmol/L Carbon Dioxide (21-32) mmol/L Anion Gap (6-13) BUN (6-20) mg/dL Creatinine (0.6-1.2) mg/dL Estimated GFR (MDRD) (>89) Glucose (70-100) mg/dL POC Whole Bld Glucose 178 H (70 - 100) mg/dL Estimat Average Glucose (70-100) mg/dL Hemoglobin A1c % (4.27-6.07) % Lactic Acid (0.5-2.2) mmol/L Calcium (8.5-10.3) mg/dL Phosphorus (2.5-4.6) mg/dL Magnesium (1.7-2.8) mg/dL Troponin I High Sens (2.3-19.7) ng/L Urine Color Urine Clarity (CLEAR) Urine pH (5.0-7.5) PH Ur Specific [place] (1.002-1.030) Urine Protein (NEGATIVE) mg/dL Urine Glucose (UA) (NEGATIVE) mg/dL Urine Ketones (NEGATIVE) mg/dL Urine Occult Blood (NEGATIVE) Urine Nitrite (NEGATIVE) Urine Bilirubin (NEGATIVE) Urine Urobilinogen (NORMAL) E.U./dL Ur Leukocyte Esterase (NEGATIVE) Urine RBC (0-5) /HPF Urine WBC (0-3) /HPF Ur Squamous Epith Cells (<= Few) Urine Bacteria (None Seen) /HPF Urine Culture Comments Assessment/Plan - Problem List (1) Pulmonary embolism Impression: causing syncope. Plan: no provoking cause. He does not have hx of malignancy, nor is he on hormone therapy that would cause this. No hx of hypercoagulable disorder. Start lovenox but reduce dose from 80 mg bid to 60 mg bid due to GFR of 45. no tpa. Qualifiers: Pulmonary embolism type: other Chronicity: acute Acute cor pulmonale presence: unspecified Qualified Code(s): I26.99 - Other pulmonary embolism without acute cor pulmonale (2) Elevated troponin Conclusion/Plan: with a hx of CAD and ACB x 4. No hx of CHF. No current pain symptoms and EKG is neg. Plan: repeat troponins to trend. (3) VESTA on CPAP Conclusion/Plan: get CPAP from home (4) HTN (hypertension) Conclusion/Plan: no hx of CHF on list of problems and he denies any symptoms or hx of CHF, but he is on beta sindi and ARB. Will check with and get hx of old ECHO if possible. Plan: resume betablocker tonight and both to be given in am. Qualifiers: Hypertension type: essential hypertension Qualified Code(s): I10 - Essential (primary) hypertension (5) Type 2 diabetes mellitus, controlled Conclusion/Plan: hold off on glucophage while here. A1c. SS insulin. Qualifiers: Diabetes mellitus usp insulin use: without exterminator helper termite use Diabetes mellitus complication status: without complication Qualified Code(s): E11.9 - Type 2 diabetes mellitus without complications (6) CKD (chronic kidney disease) stage 3, GFR 30-59 ml/min Conclusion/Plan: Since 2013 creat rising. Was 1.0>>1.4 and today 1.5. Plan: Monitor daily avoid nephrotoxic meds. (7) BPH (benign prostatic hyperplasia) Conclusion/Plan: I don't think he has frequency from hyperglycemia since his gluose in controlled. Plan: add flomax. Qualifiers: Lower urinary tract symptom presence: symptoms present
[2019-11-03] MEDS: WARFARIN 5 MG TABLET PO SCH (21:04)
[2019-11-03] MEDS: NYSTATIN POWDER 15 GM TOP SCH (21:04)
[2019-11-04] MEDS: SODIUM CHLORIDE FLUSH 0.9% 10 ML SYRINGE IVP SCH ×4 (00:26→23:49)
[2019-11-04 06:03] LABS: EOSINOPHILS % (AUTO) 3.4 %; HGB - HEMOGLOBIN 12.1 g/dL (14.0-18.0); LYMPHOCYTES % (AUTO) 30.7 %; MEAN CORPUSCULAR HEMOGLOBIN 29.6 pg (27.0-31.0); MEAN CORPUSCULAR HGB CONC 34.5 g/dL (32.0-36.0); MEAN CORPUSCULAR VOLUME 85.8 fL (80.0-94.0); MONOCYTES % (AUTO) 10.7 %; NEUTROPHILS % (AUTO) 54.7 %; PLT - PLATELET COUNT 97 10^3/uL (130-450); RED BLOOD COUNT 4.09 10^6/uL (4.70-6.10); RED CELL DISTRIBUTION WIDTH 13.3 % (12.0-15.0); WHITE BLOOD COUNT 4.1 x10^3/uL (4.8-10.8)
[2019-11-04 06:07] LABS: INR 1.3 (0.8-1.2); PT - PROTHROMBIN TIME 13.8 secs (9.9-12.6)
[2019-11-04 06:16] LABS: CALCIUM 8.3 mg/dL (8.5-10.3); MAGNESIUM 1.6 mg/dL (1.7-2.8); PHOSPHORUS 2.2 mg/dL (2.5-4.6)
[2019-11-04 06:28] LABS: ABNORMAL LYMPHS % (MANUAL) 4 %; BAND NEUTROPHILS % (MANUAL) 2 %; EOSINOPHILS # (MANUAL) 0.1 10^3/uL (0-0.7); LYMPHOCYTES # (MANUAL) 1.1 10^3/uL (1.5-3.5); LYMPHOCYTES % (MANUAL) 24 %; MONOCYTES # (MANUAL) 0.2 10^3/uL (0.0-1.0)
[2019-11-04 06:29] LABS: DIFFERENTIAL COMMENT MANUAL DIFFERENTIAL; PLATELET ESTIMATE, MANUAL DECREASED (<130,000) (NORMAL); PLATELET MORPHOLOGY NORMAL APPEARANCE (NORMAL); RBC MORPHOLOGY (MULTIPLE) NORMAL APPEARANCE (NORMAL)
[2019-11-04] MEDS ORDERED: POTASSIUM CHLORIDE 20 MEQ TABLET PO ONE (07:11)
[2019-11-04] MEDS ORDERED: POTASSIUM PHOSPHATE 15 MMOL in SODIUM CHLORIDE 0.9% 250 ML IV ONE (08:30)
[2019-11-04] MEDS: INSULIN ASPART 300 UNIT/3 ML PEN SUBQ SCH ×4 (08:43→21:01)
[2019-11-04] MEDS: MAGNESIUM OXIDE 400 MG TABLET PO SCH (08:44)
[2019-11-04] MEDS: carvediloL 3.125 MG TABLET PO SCH ×2 (08:44→20:27)
[2019-11-04] MEDS: ENOXAPARIN 100 MG/ML SYRINGE SUBQ SCH ×2 (08:44→20:27)
[2019-11-04] MEDS: NYSTATIN POWDER 15 GM TOP SCH ×2 (08:44→21:01)
[2019-11-04] MEDS: TAMSULOSIN 0.4 MG CAPSULE PO SCH (08:45)
[2019-11-04] MEDS: ACETAMINOPHEN 325 MG TABLET PO PRN (08:45)
[2019-11-04] MEDS: LOSARTAN 50 MG TABLET PO SCH (08:45)
[2019-11-04] MEDS: HYDROcod/ACETAM 10 MG/325 MG TABLET PO PRN ×3 (12:36→21:01)
[2019-11-04] MEDS: WARFARIN 5 MG TABLET PO SCH (13:50)
--- NOTE | 2019-11-04 17:08 | PROVIDER PROGRESS NOTE ---
Subjective - Prog Note Date Prog Note Date: 11/04/19 Prog Note Time: 15:00 - Subjective Pt reports feeling: Improved Subjective: Denies chest pain palpitations shortness of breath. He really wants to go home. Objective - Vital Signs/Intake & Output Reviewed Vital Signs: Yes Vital Signs: Vital Signs x48h Temp Pulse Resp BP Pulse Ox 11/04/19 15:38 98.0 C H 67 14 151/72 H 93 11/04/19 12:00 36.7 C 75 23 150/64 H 93 Intake & Output: Intake & Output 11/01/19 11/02/19 11/03/19 11/04/19 23:59 23:59 23:59 23:59 Intake Total 480 1740 885 Output Total 600 1350 200 Balance -120 390 685 - Objective General Appearance: positive: No acute distress, Alert, Other (Micki man. Completely forgetful. Does not remember anything except 5 minutes ago. But is in the moment. Cheerful. Cooperative.) Eyes Bilateral: positive: PERRL, EOMI ENT: positive: Pharynx nml Neck: positive: No JVD Respiratory: positive: Chest non-tender. negative: Wheezes, Rales, Rhonchi Cardiovascular: positive: Regular rate & rhythm, Systolic murmur. negative: Gallop/S4, Friction rub Abdomen: positive: Non-tender, No organomegaly, Nml bowel sounds, No distention Skin: positive: Warm, Dry, Pallor Extremities: positive: Non-tender, No pedal edema Neurologic/Psychiatric: positive: CN's nml (2-12), Disoriented to time. negative: Motor nml (Really unsteady on his feet. Needs help with balance. Needs help to sit up in bed and stand to transfer to a chair or to the bathroom.) - Lab Results Fish Bones: 11/05/19 05:05 11/05/19 05:05 Other Labs: Lab Results x24hrs 11/04/19 11/04/19 11/04/19 Range/Units 16:48 12:00 08:02 WBC (4.8-10.8) x10^3/uL RBC (4.70-6.10) 10^6/uL Hgb (14.0-18.0) g/dL Hct (42.0-52.0) % MCV (80.0-94.0) fL MCH (27.0-31.0) pg MCHC (32.0-36.0) g/dL RDW (12.0-15.0) % Plt Count (130-450) 10^3/uL MPV (7.4-11.4) fL Neut # (Auto) Lymph # (Auto) [place] # (Auto) Eos # (Auto) Baso # (Auto) Absolute Nucleated RBC Total Counted Band Neuts % (Manual) (0 - 10) % Abnorm Lymph % (Manual) % Nucleated RBC % Neutrophils # (Manual) (1.5-6.6) 10^3/uL Lymphocytes # (Manual) (1.5-3.5) 10^3/uL Monocytes # (Manual) (0.0-1.0) 10^3/uL Eosinophils # (Manual) (0-0.7) 10^3/uL Basophils # (Manual) (0-0.1) 10^3/uL Differential Comment WBC Morphology (NORMAL) Platelet Estimate (NORMAL) Platelet Morphology (NORMAL) RBC Morph Micro Appear (NORMAL) PT (9.9-12.6) secs INR (0.8-1.2) Sodium (135-145) mmol/L Potassium (3.5-5.0) mmol/L Chloride (101-111) mmol/L Carbon Dioxide (21-32) mmol/L Anion Gap (6-13) BUN (6-20) mg/dL Creatinine (0.6-1.2) mg/dL Estimated GFR (MDRD) (>89) Glucose (70-100) mg/dL POC Whole Bld Glucose 139 H 235 H 179 H (70 - 100) mg/dL Calcium (8.5-10.3) mg/dL Phosphorus (2.5-4.6) mg/dL Magnesium (1.7-2.8) mg/dL 11/04/19 11/04/19 11/04/19 Range/Units 04:55 04:55 04:55 WBC 4.1 L (4.8-10.8) x10^3/uL RBC 4.09 L (4.70-6.10) 10^6/uL Hgb 12.1 L (14.0-18.0) g/dL Hct 35.1 L (42.0-52.0) % MCV 85.8 (80.0-94.0) fL MCH 29.6 (27.0-31.0) pg MCHC 34.5 (32.0-36.0) g/dL RDW 13.3 (12.0-15.0) % Plt Count 97 L (130-450) 10^3/uL MPV 11.0 (7.4-11.4) fL Neut # (Auto) Not Reportable Lymph # (Auto) Not Reportable [place] # (Auto) Not Reportable Eos # (Auto) Not Reportable Baso # (Auto) Not Reportable Absolute Nucleated RBC Not Reportable Total Counted 100 Band Neuts % (Manual) 2 (0 - 10) % Abnorm Lymph % (Manual) 4 % Nucleated RBC % Not Reportable Neutrophils # (Manual) 2.6 (1.5-6.6) 10^3/uL Lymphocytes # (Manual) 1.1 L (1.5-3.5) 10^3/uL Monocytes # (Manual) 0.2 (0.0-1.0) 10^3/uL Eosinophils # (Manual) 0.1 (0-0.7) 10^3/uL Basophils # (Manual) 0.0 (0-0.1) 10^3/uL Differential Comment MANUAL DIFFERENTIAL WBC Morphology NORMAL APPEARANCE (NORMAL) Platelet Estimate DECREASED (<130,000) (NORMAL) Platelet Morphology NORMAL APPEARANCE (NORMAL) RBC Morph Micro Appear NORMAL APPEARANCE (NORMAL) PT 13.8 H (9.9-12.6) secs INR 1.3 H (0.8-1.2) Sodium 136 (135-145) mmol/L Potassium 3.2 L (3.5-5.0) mmol/L Chloride 103 (101-111) mmol/L Carbon Dioxide 24 (21-32) mmol/L Anion Gap 9.0 (6-13) BUN 16 (6-20) mg/dL Creatinine 1.0 (0.6-1.2) mg/dL Estimated GFR (MDRD) 72 L (>89) Glucose 151 H (70-100) mg/dL POC Whole Bld Glucose (70 - 100) mg/dL Calcium 8.3 L (8.5-10.3) mg/dL Phosphorus 2.2 L (2.5-4.6) mg/dL Magnesium 1.6 L (1.7-2.8) mg/dL 11/03/19 Range/Units 20:18 WBC (4.8-10.8) x10^3/uL RBC (4.70-6.10) 10^6/uL Hgb (14.0-18.0) g/dL Hct (42.0-52.0) % MCV (80.0-94.0) fL MCH (27.0-31.0) pg MCHC (32.0-36.0) g/dL RDW (12.0-15.0) % Plt Count (130-450) 10^3/uL MPV (7.4-11.4) fL Neut # (Auto) Lymph # (Auto) [place] # (Auto) Eos # (Auto) Baso # (Auto) Absolute Nucleated RBC Total Counted Band Neuts % (Manual) (0 - 10) % Abnorm Lymph % (Manual) % Nucleated RBC % Neutrophils # (Manual) (1.5-6.6) 10^3/uL Lymphocytes # (Manual) (1.5-3.5) 10^3/uL Monocytes # (Manual) (0.0-1.0) 10^3/uL Eosinophils # (Manual) (0-0.7) 10^3/uL Basophils # (Manual) (0-0.1) 10^3/uL Differential Comment WBC Morphology (NORMAL) Platelet Estimate (NORMAL) Platelet Morphology (NORMAL) RBC Morph Micro Appear (NORMAL) PT (9.9-12.6) secs INR (0.8-1.2) Sodium (135-145) mmol/L Potassium (3.5-5.0) mmol/L Chloride (101-111) mmol/L Carbon Dioxide (21-32) mmol/L Anion Gap (6-13) BUN (6-20) mg/dL Creatinine (0.6-1.2) mg/dL Estimated GFR (MDRD) (>89) Glucose (70-100) mg/dL POC Whole Bld Glucose 197 H (70 - 100) mg/dL Calcium (8.5-10.3) mg/dL Phosphorus (2.5-4.6) mg/dL Magnesium (1.7-2.8) mg/dL ABX Reporting Has patient been on IV antibiotics over the past 48 hours?: No Assessment/Plan - Problem List (1) Pulmonary embolism Impression: causing syncope. The only provoking cause I can find is that of venous stasis from someone who is had saphenous vein harvest for bypass surgery. Relatively sedentary lifestyle. But no other provoking factors. He is on 100 mg of Loveno x twice daily. Started on Coumadin last night. I did investigate Xarelto or Eliquis. Xarelto was the most reasonable at 400 hours the first month and $47 a month or after. Eliquis was so expensive the pharmacist that he did need 1 to tell me how much it was, cost the patient. As such Coumadin is the least expensive but the least convenient to use. Plan: Daily INR Discharge once INR gets close to 2. The Lovenox will be expensive as well. He will need to stay on the Lovenox till INR is between 2-3. Qualifiers: Pulmonary embolism type: other Chronicity: acute Acute cor pulmonale presence: unspecified Qualified Code(s): I26.99 - Other pulmonary embolism without acute cor pulmonale (2) Elevated troponin Conclusion/Plan: with a hx of CAD and ACB x 4. No hx of CHF. No current pain symptoms and EKG is neg. Plan: repeat troponins to trend. (3) VESTA on CPAP Conclusion/Plan: get CPAP from home (4) HTN (hypertension) Conclusion/Plan: no hx of CHF on list of problems and he denies any symptoms or hx of CHF, but he is on beta sindi and ARB. Will check with and get hx of old ECHO if possible. Plan: resume betablocker tonight and both to be given in am. Qualifiers: Hypertension type: essential hypertension Qualified Code(s): I10 - Essential (primary) hypertension (5) Type 2 diabetes mellitus, controlled Conclusion/Plan: hold off on glucophage while here. A1c. SS insulin. Qualifiers: Diabetes mellitus watcher automat long goods insulin use: without group home use Diabetes mellitus complication status: without complication Qualified Code(s): E11.9 - Type 2 diabetes mellitus without complications (6) CKD (chronic kidney disease) stage 3, GFR 30-59 ml/min Conclusion/Plan: Since 2012 creat rising. Was 1.0>>1.4 and today 1.5. Plan: Monitor daily avoid nephrotoxic meds. (7) BPH (benign prostatic hyperplasia) Conclusion/Plan: I don't think he has frequency from hyperglycemia since his gluose in controlled. Plan: add flomax. Qualifiers: Lower urinary tract symptom presence: symptoms present
[2019-11-05 05:18] LABS: BASOPHILS % (AUTO) 0.2 %; EOSINOPHILS # (AUTO) 0.3 10^3/uL (0.0-0.7); EOSINOPHILS % (AUTO) 5.4 %; LYMPHOCYTES # (AUTO) 1.3 10^3/uL (1.5-3.5); LYMPHOCYTES % (AUTO) 27.7 %; MEAN CORPUSCULAR HEMOGLOBIN 30.1 pg (27.0-31.0); MEAN CORPUSCULAR HGB CONC 34.5 g/dL (32.0-36.0); MEAN CORPUSCULAR VOLUME 87.2 fL (80.0-94.0); MEAN PLATELET VOLUME 10.3 fL (7.4-11.4); MONOCYTES # (AUTO) 0.4 10^3/uL (0.0-1.0); MONOCYTES % (AUTO) 9.6 %; NEUTROPHILS # (AUTO) 2.6 10^3/uL (1.5-6.6); NEUTROPHILS % (AUTO) 56.7 %; PLT - PLATELET COUNT 102 10^3/uL (130-450); RED BLOOD COUNT 3.99 10^6/uL (4.70-6.10); RED CELL DISTRIBUTION WIDTH 13.5 % (12.0-15.0); WHITE BLOOD COUNT 4.6 x10^3/uL (4.8-10.8)
[2019-11-05 05:19] LABS: INR 1.5 (0.8-1.2)
[2019-11-05 05:26] LABS: CALCIUM 8.4 mg/dL (8.5-10.3); CREATININE 1.1 mg/dL (0.6-1.2); MAGNESIUM 1.5 mg/dL (1.7-2.8); PHOSPHORUS 2.7 mg/dL (2.5-4.6)
[2019-11-05] MEDS: INSULIN ASPART 300 UNIT/3 ML PEN SUBQ SCH ×6 (09:59→21:20)
[2019-11-05] MEDS: NYSTATIN POWDER 15 GM TOP SCH ×2 (10:04→21:21)
[2019-11-05] MEDS: ENOXAPARIN 100 MG/ML SYRINGE SUBQ SCH ×2 (10:04→21:20)
[2019-11-05] MEDS: MAGNESIUM OXIDE 400 MG TABLET PO SCH (10:05)
[2019-11-05] MEDS: TAMSULOSIN 0.4 MG CAPSULE PO SCH (10:05)
[2019-11-05] MEDS: SODIUM CHLORIDE FLUSH 0.9% 10 ML SYRINGE IVP SCH ×2 (10:05→20:30)
[2019-11-05] MEDS: carvediloL 3.125 MG TABLET PO SCH ×2 (10:06→21:20)
[2019-11-05] MEDS: LOSARTAN 50 MG TABLET PO SCH (10:06)
[2019-11-05] MEDS: WARFARIN 5 MG TABLET PO SCH (13:17)
--- NOTE | 2019-11-05 15:04 | PROVIDER PROGRESS NOTE ---
Subjective - Prog Note Date Prog Note Date: 11/05/19 Prog Note Time: 15:08 - Subjective Subjective: He feels so good. He wants to go home. He is 92% on room air. But can go up to 99 or 100%.No chest pain, no palpitations. No shortness of breath. Just a little ataxic, needs help with physical therapy Current Medications - Current Medications Current Medications: Active Medications Acetaminophen (Tylenol) 650 mg PO Q4HR PRN PRN Reason: Pain 1 to 4 Last Admin: 11/04/19 08:45 Dose: 650 mg Documented by: Hydrocodone Bitart/Acetaminophen (Eagle 10 Mg/325 Mg) 1 tab PO Q4HR PRN PRN Reason: PAIN Last Admin: 11/04/19 21:01 Dose: 1 tab Documented by: Carvedilol (Coreg) 3.125 mg PO BID [facility] Last Admin: 11/05/19 10:06 Dose: 3.125 mg Documented by: Enoxaparin Sodium (Lovenox) 100 mg SUBQ BID [facility] Last Admin: 11/05/19 10:04 Dose: 100 mg Documented by: Insulin Aspart (Novolog) 2 - 10 unit SUBQ 0800,1200,1700,2100 [facility]; Protocol Last Admin: 11/05/19 13:17 Dose: 6 unit Documented by: Insulin Glargine (Lantus Solostar) 12 unit SUBQ QPM [facility] Losartan Potassium (Cozaar) 50 mg PO DAILY [facility] Last Admin: 11/05/19 10:06 Dose: 50 mg Documented by: Magnesium Oxide (Mag Ox) 400 mg PO DAILYWM [facility] Last Admin: 11/05/19 10:05 Dose: 400 mg Documented by: Nystatin (Nystop) 1 applic TOP BID [facility] Last Admin: 11/05/19 10:04 Dose: 1 applic Documented by: Ondansetron HCl (Zofran Odt) 4 mg TL Q6HR PRN PRN Reason: Nausea / Vomiting Ondansetron HCl (Zofran Inj) 4 mg IVP Q6HR PRN PRN Reason: Nausea / Vomiting Sodium Chloride (Normal Saline Flush 0.9%) 10 ml IVP PRN PRN PRN Reason: NEEDED PER PROVIDER ORDERS Last Admin: 11/03/19 05:05 Dose: 10 ml Documented by: Sodium Chloride (Normal Saline Flush 0.9%) 10 ml IVP 0100,0900,1700 [facility] Last Admin: 11/05/19 10:05 Dose: 10 ml Documented by: Tamsulosin HCl (Flomax) 0.4 mg PO DAILY [facility] Last Admin: 11/05/19 10:05 Dose: 0.4 mg Documented by: Warfarin Sodium (Coumadin) 5 mg PO QDWARFARIN [facility] Last Admin: 11/05/19 13:17 Dose: 5 mg Documented by: Hydrchlorthazide 12.5 mg PO DAILY 08/14/12 Insulin Glargine,Hum.rec.anlog [Lantus Solostar] 12 HS 08/14/12 Metformin HCl 1,000 mg PO BID 08/14/12 Atorvastatin Calcium 20 mg PO DAILY 03/04/16 Losartan Potassium 100 mg PO DAILY 03/04/16 Omeprazole 20 mg PO DAILY 03/04/16 carvediloL [Carvedilol] 3.125 mg PO DAILY 03/04/16 Objective - Vital Signs/Intake & Output Reviewed Vital Signs: Yes Vital Signs: Vital Signs x48h Temp Pulse Pulse Resp BP BP Pulse Ox 11/05/19 13:00 78 144/76 H 11/05/19 12:00 37.1 C 72 18 136/67 H 92 11/05/19 07:45 37.1 C 69 18 136/78 H 92 Pulse Ox 11/05/19 13:00 100 11/05/19 12:00 11/05/19 07:45 Intake & Output: Intake & Output 11/02/19 11/03/19 11/04/19 11/05/19 23:59 23:59 23:59 23:59 Intake Total 480 1740 1185 800 Output Total 600 1350 200 Balance -120 390 985 800 - Objective General Appearance: positive: No acute distress, Alert, Other ( Male partner and baldness. Alert. Oriented. To person and place just not date.) Eyes Bilateral: positive: PERRL, EOMI Neck: positive: No JVD. negative: Stiff neck Respiratory: positive: Chest non-tender, No respiratory distress. negative: Wheezes, Rales, Rhonchi Cardiovascular: positive: Regular rate & rhythm, Systolic murmur. negative: Gallop/S4, Friction rub Abdomen: positive: Non-tender, No organomegaly, Nml bowel sounds, No distention Skin: positive: Warm, Dry Extremities: positive: Full ROM, No pedal edema Neurologic/Psychiatric: positive: CN's nml (2-12), Disoriented to time. negative: Motor nml (Mild weakness, ataxia.) - Lab Results Fish Bones: 11/05/19 05:05 11/05/19 05:05 Other Labs: Lab Results x24hrs 11/05/19 11/05/19 11/05/19 Range/Units 11:33 07:45 05:05 WBC (4.8-10.8) x10^3/uL RBC (4.70-6.10) 10^6/uL Hgb (14.0-18.0) g/dL Hct (42.0-52.0) % MCV (80.0-94.0) fL MCH (27.0-31.0) pg MCHC (32.0-36.0) g/dL RDW (12.0-15.0) % Plt Count (130-450) 10^3/uL MPV (7.4-11.4) fL Neut # (Auto) (1.5-6.6) 10^3/uL Lymph # (Auto) (1.5-3.5) 10^3/uL Webb # (Auto) (0.0-1.0) 10^3/uL Eos # (Auto) (0.0-0.7) 10^3/uL Baso # (Auto) (0.0-0.1) 10^3/uL Absolute Nucleated RBC x10^3/uL Nucleated RBC % /100WBC PT (9.9-12.6) secs INR (0.8-1.2) Sodium 137 (135-145) mmol/L Potassium 3.8 (3.5-5.0) mmol/L Chloride 103 (101-111) mmol/L Carbon Dioxide 25 (21-32) mmol/L Anion Gap 9.0 (6-13) BUN 18 (6-20) mg/dL Creatinine 1.1 (0.6-1.2) mg/dL Estimated GFR (MDRD) 65 L (>89) Glucose 144 H (70-100) mg/dL POC Whole Bld Glucose 226 H 125 H (70 - 100) mg/dL Calcium 8.4 L (8.5-10.3) mg/dL Phosphorus 2.7 (2.5-4.6) mg/dL Magnesium 1.5 L (1.7-2.8) mg/dL 11/05/19 11/05/19 11/04/19 Range/Units 05:05 05:05 20:49 WBC 4.6 L (4.8-10.8) x10^3/uL RBC 3.99 L (4.70-6.10) 10^6/uL Hgb 12.0 L (14.0-18.0) g/dL Hct 34.8 L (42.0-52.0) % MCV 87.2 (80.0-94.0) fL MCH 30.1 (27.0-31.0) pg MCHC 34.5 (32.0-36.0) g/dL RDW 13.5 (12.0-15.0) % Plt Count 102 L (130-450) 10^3/uL MPV 10.3 (7.4-11.4) fL Neut # (Auto) 2.6 (1.5-6.6) 10^3/uL Lymph # (Auto) 1.3 L (1.5-3.5) 10^3/uL Webb # (Auto) 0.4 (0.0-1.0) 10^3/uL Eos # (Auto) 0.3 (0.0-0.7) 10^3/uL Baso # (Auto) 0.0 (0.0-0.1) 10^3/uL Absolute Nucleated RBC 0.00 x10^3/uL Nucleated RBC % 0.0 /100WBC PT 16.0 H (9.9-12.6) secs INR 1.5 H (0.8-1.2) Sodium (135-145) mmol/L Potassium (3.5-5.0) mmol/L Chloride (101-111) mmol/L Carbon Dioxide (21-32) mmol/L Anion Gap (6-13) BUN (6-20) mg/dL Creatinine (0.6-1.2) mg/dL Estimated GFR (MDRD) (>89) Glucose (70-100) mg/dL POC Whole Bld Glucose 147 H (70 - 100) mg/dL Calcium (8.5-10.3) mg/dL Phosphorus (2.5-4.6) mg/dL Magnesium (1.7-2.8) mg/dL 11/04/19 Range/Units 16:48 WBC (4.8-10.8) x10^3/uL RBC (4.70-6.10) 10^6/uL Hgb (14.0-18.0) g/dL Hct (42.0-52.0) % MCV (80.0-94.0) fL MCH (27.0-31.0) pg MCHC (32.0-36.0) g/dL RDW (12.0-15.0) % Plt Count (130-450) 10^3/uL MPV (7.4-11.4) fL Neut # (Auto) (1.5-6.6) 10^3/uL Lymph # (Auto) (1.5-3.5) 10^3/uL Webb # (Auto) (0.0-1.0) 10^3/uL Eos # (Auto) (0.0-0.7) 10^3/uL Baso # (Auto) (0.0-0.1) 10^3/uL Absolute Nucleated RBC x10^3/uL Nucleated RBC % /100WBC PT (9.9-12.6) secs INR (0.8-1.2) Sodium (135-145) mmol/L Potassium (3.5-5.0) mmol/L Chloride (101-111) mmol/L Carbon Dioxide (21-32) mmol/L Anion Gap (6-13) BUN (6-20) mg/dL Creatinine (0.6-1.2) mg/dL Estimated GFR (MDRD) (>89) Glucose (70-100) mg/dL POC Whole Bld Glucose 139 H (70 - 100) mg/dL Calcium (8.5-10.3) mg/dL Phosphorus (2.5-4.6) mg/dL Magnesium (1.7-2.8) mg/dL ABX Reporting Has patient been on IV antibiotics over the past 48 hours?: No Assessment/Plan - Problem List (1) Pulmonary embolism Impression: (1) Pulmonary embolism Impression: 11/03: causing syncope. The only provoking cause I can find is that of venous stasis from someone who is had saphenous vein harvest for bypass surgery. Relatively sedentary lifestyle. But no other provoking factors. He is on 100 mg of Lovenox twice daily. Started on Coumadin last night. I did investigate Xarelto or Eliquis. Xarelto was the most reasonable at 400 hours the first month and $47 a month or after. Eliquis was so expensive the pharmacist that he did need 1 to tell me how much it was, cost the patient. As such Coumadin is the least expensive but the least convenient to use. Plan: Daily INR Discharge once INR gets close to 2. The Lovenox will be expensive as well. He will need to stay on the Lovenox till INR is between 2-3. 11/04: INR is 1.5 today. He is received 2 doses of 5 mg of Coumadin. is been advised of my goal of getting him to an INR of 2. In the meantime continue Lovenox. She is getting walkers, bed, moving furniture around getting ready for him to go home. He has to be able to walk up 16 steps. Today, with physical therapy he is doing so much better. He is able to sit to stand. Needs a contact-guard assist when he standing. Walk 20 feet. But exhausted. There is no way he could do 16 steps today. Qualifiers: Pulmonary embolism type: other Chronicity: acute Acute cor pulmonale presence: unspecified Qualified Code(s): I26.99 - Other pulmonary embolism without acute cor pulmonale (2) Elevated troponin Conclusion/Plan: with a hx of CAD and ACB x 4. No hx of CHF. No current pain symptoms and EKG is neg. 122>> 350 >>403>> 380 I hesitate to call this an NSTEMI. This may be more due to the fact he had pulmonary emboli. He has no chest pain. EKGs had no change. Plan: repeat troponins to trend. Started on Xarelto. Already on carvedilol. On losartan and atorvastatin. He is not a candidate to be transferred according to what he wants. On maximal medical therapy. (3) VESTA on CPAP Conclusion/Plan: I asked him to get his CPAP from home. Respiratory therapy is work with him. Even though he has CPAP, he will not use it. As such is not been on him during his stay. (4) HTN (hypertension) Conclusion/Plan: no hx of CHF on list of problems and he denies any symptoms or hx of CHF, but he is on beta sindi and ARB. Will check with and get hx of old ECHO if possible.On Cozaar, Coreg. No Lasix needed.BP in the 130s to 140 systolic. No change needed. Qualifiers: Hypertension type: essential hypertension Qualified Code(s): I10 - Essential (primary) hypertension (5) Type 2 diabetes mellitus, controlled Conclusion/Plan: hold off on glucophage while here. A1c. SS insulin. Yesterday he was 179, 235, 139, 147. Today he is 125, 226, so I will resume his Lantus 12 units. 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
[2019-11-05] MEDS: HYDROcod/ACETAM 10 MG/325 MG TABLET PO PRN (15:51)
[2019-11-05] MEDS ORDERED: INSULIN GLARGINE 300 UNIT/3 ML PEN SUBQ SCH (21:00)
[2019-11-06] MEDS: SODIUM CHLORIDE FLUSH 0.9% 10 ML SYRINGE IVP SCH ×2 (00:01→08:31)
[2019-11-06 04:55] LABS: BASOPHILS % (AUTO) 0.4 %; EOSINOPHILS # (AUTO) 0.3 10^3/uL (0.0-0.7); EOSINOPHILS % (AUTO) 5.5 %; HGB - HEMOGLOBIN 11.4 g/dL (14.0-18.0); LYMPHOCYTES % (AUTO) 35.2 %; MEAN CORPUSCULAR HEMOGLOBIN 28.9 pg (27.0-31.0); MEAN CORPUSCULAR HGB CONC 32.9 g/dL (32.0-36.0); MEAN CORPUSCULAR VOLUME 88.1 fL (80.0-94.0); MEAN PLATELET VOLUME 10.1 fL (7.4-11.4); MONOCYTES # (AUTO) 0.4 10^3/uL (0.0-1.0); MONOCYTES % (AUTO) 7.7 %; NEUTROPHILS # (AUTO) 2.9 10^3/uL (1.5-6.6); NEUTROPHILS % (AUTO) 50.8 %; PLT - PLATELET COUNT 114 10^3/uL (130-450); RED BLOOD COUNT 3.94 10^6/uL (4.70-6.10); RED CELL DISTRIBUTION WIDTH 13.6 % (12.0-15.0); WHITE BLOOD COUNT 5.7 x10^3/uL (4.8-10.8)
[2019-11-06 04:59] LABS: INR 1.9 (0.8-1.2); PT - PROTHROMBIN TIME 20.3 secs (9.9-12.6)
[2019-11-06 05:08] LABS: MAGNESIUM 1.6 mg/dL (1.7-2.8); PHOSPHORUS 2.1 mg/dL (2.5-4.6)
[2019-11-06] MEDS ORDERED: POTASSIUM CHLORIDE 20 MEQ TABLET PO ONE (07:15)
[2019-11-06] MEDS: TAMSULOSIN 0.4 MG CAPSULE PO SCH (08:30)
[2019-11-06] MEDS: MAGNESIUM OXIDE 400 MG TABLET PO SCH (08:30)
[2019-11-06] MEDS: LOSARTAN 50 MG TABLET PO SCH (08:31)
[2019-11-06] MEDS: INSULIN ASPART 300 UNIT/3 ML PEN SUBQ SCH ×2 (08:31→12:05)
[2019-11-06] MEDS: ENOXAPARIN 100 MG/ML SYRINGE SUBQ SCH (08:31)
[2019-11-06] MEDS: NYSTATIN POWDER 15 GM TOP SCH (08:32)
[2019-11-06] MEDS: carvediloL 3.125 MG TABLET PO SCH (08:33)
[2019-11-06] MEDS: HYDROcod/ACETAM 10 MG/325 MG TABLET PO PRN (08:47)
[2019-11-06 11:21] VITALS: BP 132/65
--- NOTE | 2019-11-06 11:38 | Discharge Plan ---
Discharge Plan Problem Reviewed?: Yes Disposition: 06 Home Health Service Condition: Good Prescriptions: Walker [Ultra-Light Rollator] 1 each MC DAILY #1 each Diet: Diabetic Activity Restrictions: Activity as Tolerated Shower Restrictions: No Driving Restrictions: Yes (no driving) Health Concerns: You have a past medical history of mild to moderate memory loss. So you already have problems with your sleep where you are up in the middle the night and sleeping in the middle the day. Your brought you in because you were very unusual in your behavior. She can put her finger on it but you were not acting normally with regards to your sleep cycle. You seemed short of breath. When you were brought to the emergency room we found that you were having blood clots to the lungs. We discussed the type of blood thinners you could use. The most easy to use blood thinners which are tablets once a day or twice a day were very expensive. It was beyond your budget. So we ended up transitioning you with injectable blood thinners that were transitioned to pill. The pill is Coumadin. When we measure the efficacy of Coumadin we measure something called an INR. Your INR needs to be between 2 and 3. Today you were 1.9. We think you will be over 1.9 tomorrow and feel you can safely be discharged. That you can be discharged without using the subcutaneous injectable form. However, you must have your blood draw for a repeat INR on Thursday. Plan of Treatment: 1. Please call your primary care provider's office on Thursday morning. Let them know that you need your blood drawn on Thursday to adjust your Coumadin. It is very important you do this because Coumadin must be monitored carefully. You will get to the point where your blood only needs to be checked once a month. But right now you may have to check it more frequently such as 2 or 3 times a week. 2. We recommend that you increase your Lantus to 14 units a day. And stop Glucophage. 3. You were having problems with urinary retention here, most likely from a large prostate. We recommend you to start Flomax to help you with that. It relaxes the muscles at bottom of your bladder so you can urinate more freely. A prescription has been called into your pharmacy. Care Goals: To increase your endurance and ability to take care of yourself. You will be sent home with home health physical therapy. Right now you are little wobbly on your feet and need help getting to the bathroom. To remain without any recurrence of blood clots. As such she will stay on your Coumadin for a few months. Assessment: Because of memory loss, these goals were shared with his . She promises to follow through. No Smoking: If you smoke, Please STOP! Call for help. Follow-up with: Morro Nunez MD [Primary Care Provider] -
--- NOTE | 2019-11-06 12:03 | PHARMACY PROGRESS NOTE ---
- Best Possible Medication History Admit Date and Time: 11/02/19 1626 Processed by: Pharmacy Medication History completed: Yes Patient Interview: Completed Secondary Source(s): Spouse/Significant other, Other family member, Pharmacy records, Insurance records (PATIENT INTERVIEWED BY PHARMACY. PATIENT'S SPOUSE ABLE TO CONFIRM HOME MEDICATIONS ) As the person ultimately responsible for medication therapy, providers are able to order a medication from an existing home medication list in [facility] via the "Reconcile Routine" prior to Confirmation of that medication by director sales support. Such practice is discouraged except when the physician, in their clinical judgment, deems that a medical need exists for a medication without regard to previous use.
[2019-11-06] MEDS: WARFARIN 5 MG TABLET PO SCH (14:45)
--- NOTE | 2019-11-06 16:20 | DISCHARGE SUMMARY ---
Discharge Summary Admit Date: 11/02/19 Discharge Date: 11/06/19 Discharging Provider: Yoselin Tyson MD Primary Care Provider: Morro Nunez MD Code Status: Do Not Attempt Resuscitation Condition at Discharge: Good Discharge Disposition: Home Health Service - DIAGNOSES Discharge Diagnoses with Status of Each Condition: 1 pulmonary embolism 2. Elevated troponin 3. History of coronary artery disease 4. Obstructive sleep apnea on CPAP 5. Patient noncompliance (refuses CPAP and sometimes refuses meds) 6. Hypertension 7. Type 2 diabetes mellitus, controlled 8. Benign prostatic hypertrophy 9. Dementia - HPI History of Present Illness: He lives at home with his and she takes care of him due to his dementia. He is able to do his ADLs with prompting and is described as healthy. Last night he was described as "not himself". he wouldn't stay asleep, seemed upset, but no specific complaints. Up and down. No recent change in diet or meds. No fever, cp, sob, abd pain. Today, as he was on the toilet, had syncope so brought to ER. Seen by Dr. Real who found hypoxia and elevated troponin. EKG without acute changes. patient was noncontibutory for the history. D Dimer was elevated in followup and found to have a large left sided PE on CTA. PESI score is high and he is brought in for treatment. is described as NOT wanting transfer for procedures. - Past Medical History Cardiovascular: reports: Hypertension, High cholesterol, Coronary artery disease, Other (respiratory arrest with shoulder surgery, twice) Respiratory: reports: Sleep apnea (severe, dx in 2002 in [place] and repeat study 2012 ), CPAP use Endocrine/Autoimmune: reports: Type 2 diabetes GI: reports: None : reports: None HEENT: reports: Chronic sinusitis (with turbinate reduction under local with balloon sinuplasty of deviated septum) Psych: reports: Claustrophobia Musculoskeletal: reports: Osteoarthritis (both shoulders), Chronic back pain (with hx of lumbar fusion) MRSA Hx?: No - Past Surgical History General: reports: Appendectomy Ortho: reports: Shoulder arthroplasty (left 2013 twice with respiratory arrest twice), Spine surgery (lumbar fusion) Cardiovascular: reports: CABG - CONSULTS | PROCEDURES Procedures: 1. Chest x-ray with unremarkable portable chest for his age. 2. Chest/thorax CT angiogram showed a heart that was enlarged without pericardial effusion. Patchy bibasilar opacities with peripheral consolidation involving the superior segment of the left upper lobe, this was felt to be possible pulmonary infarct. Intraluminal filling defects involving the proximal left lower lobe pulmonary arteries extending into the basilar segmental pulmonary arteries. Also intraluminal filling defects involving the left upper lobe segmental pulmonary arteries. Additionally intraluminal filling defects noted in the basilar segments of the right lower lobe. No enlargement of the main pulmonary artery to suggest acute right-sided heart strain. - HOSPITAL COURSE Hospital Course: Patient was admitted pulmonary embolism. The only provoking cause that we could ascertain was that of chronic venous stasis in someone whose had saphenous vein harvest for bypass surgery. His legs have chronic edema. He has a relatively sedentary lifestyle. He was transitioned from Lovenox to Coumadin. We did discuss Xarelto versus Eliquis. Both of these medications were very expensive for the family and they opted to just stay with Coumadin. As such with Coumadin being 5 mg a day He will need to be checked in the next 2 to 3 days. At discharge his INR was 1.9. He had some evidence of chronic kidney disease. Creatinine shad to 1.5. Urinary frequency with retention was noted with probable benign prostatic hypertrophy. Flomax was started and continued at discharge. He did have an janell vated troponin on admission. Trending went from 122-3 150-403 down to 380. This was not felt to be an end STEMI since EKG was without change. However felt more as a subsequent factor to the pulmonary embolism. He does have obstructive sleep apnea, but refuses to use the CPAP machine because of his dementia and claustrophobia. For high blood pressure he was maintained on his usual medications. While he was in the hospital Glucophage was not used. His usual 70/30 was used. We did increase it at discharge in order to avoid using Glucophage. During his stay he was seen by physical therapy. He requires quite a bit of verbal cues and needs a walker for balance. They are recommending home health PT and I have ordered that. He was discharged in stable condition. Asked to follow-up with his primary care provider. Temperature is 36.9, pulse 75, blood pressure 132/65, respirations 18 and 94% on room air. He is 5 foot 10 inches tall and weighs 102 kg. A delightful, alert elderly gentleman who is in no acute distress. No JVD. Clear lungs. Regular rate and rhythm. And abdomen that was benign. Leg edema minimal. Homans negative. - ALLERGIES Allergies/Adverse Reactions: Allergies Allergy/AdvReac Type Severity Reaction Status Date / Time atenolol AdvReac Mild Nausea Verified 09/25/18 10:59 - MEDICATIONS Home Medications: Ambulatory Orders Medication Instructions Recorded Confirmed Atorvastatin Calcium 20 mg PO DAILY 03/04/16 11/06/19 Losartan Potassium 100 mg PO DAILY 03/04/16 11/06/19 Omeprazole 20 mg PO DAILY 03/04/16 11/06/19 carvediloL [Carvedilol] 3.125 mg PO BID 03/04/16 11/06/19 Insulin Aspart Prot/Insuln Asp 20 units SQ BID 11/06/19 11/06/19 [Novolog Mix 70-30 Vial] Magnesium Oxide [Mag Ox] 400 mg PO DAILYWM 11/06/19 11/06/19 Nystatin [Nystop] 1 applic TOP BID 11/06/19 11/06/19 Tamsulosin HCl [Flomax] 0.4 mg PO DAILY 11/06/19 11/06/19 Walker [Ultra-Light Rollator] 1 each MC DAILY #1 each 11/06/19 Warfarin [Coumadin] 5 mg PO QDWARFARIN 11/06/19 11/06/19 hydroCHLOROthiazide 12.5 mg PO DAILY 11/06/19 11/06/19 [Hydrochlorothiazide] - LABS Result Diagrams: 11/06/19 04:40 11/06/19 04:40
== END 2019-11-06 14:00 | disposition home health service (06) | DRG 176 ==
LOC: EDUNIT# → ED 13:05 → MS3 16:26
PROVIDERS: ADMIT Specialist; ATTEND Specialist
DX: I26.99 Other pulmonary embolism without acute cor pulmonale (principal); R79.89 Other specified abnormal findings of blood chemistry; R53.1 Weakness; Z95.1 Presence of aortocoronary bypass graft; I10 Essential (primary) hypertension; I25.10 Atherosclerotic heart disease of native coronary artery without angina pectoris; G47.33 Obstructive sleep apnea (adult) (pediatric); F03.90 Unspecified dementia, unspecified severity, without behavioral disturbance, psychotic disturbance, mood disturbance, and anxiety; E78.00 Pure hypercholesterolemia, unspecified; I87.8 Other specified disorders of veins; I12.9 Hypertensive chronic kidney disease with stage 1 through stage 4 chronic kidney disease, or unspecified chronic kidney disease; E11.22 Type 2 diabetes mellitus with diabetic chronic kidney disease; N18.3 Chronic kidney disease, stage 3 (moderate); Z79.84 Long term (current) use of oral hypoglycemic drugs; Z87.891 Personal history of nicotine dependence; Z66 Do not resuscitate; Z91.19 Patient's noncompliance with other medical treatment and regimen; N40.1 Benign prostatic hyperplasia with lower urinary tract symptoms; R33.8 Other retention of urine
CPT/HCPCS: 36415; 71045; 71275; 80048; 80053; 81001; 83036; 83605; 83690; 83735; 84100; 84484; 85025; 85379; 85610; 93005; 96374; 97162; 97530; 99285; A9270; J1650; J1815; Q9967; 87086

== ENCOUNTER 2019-11-08 11:25 | Outpatient (CLI) | payer MEDICARE, OTHER | END 2019-11-08 11:26 | disposition home or self-care (01) | LOC: LAB 11:25 | PROVIDERS: ATTEND Specialist | DX: I26.99 Other pulmonary embolism without acute cor pulmonale (principal) | CPT/HCPCS: 85610 ==

== ENCOUNTER 2019-11-11 12:15 | Outpatient (CLI) | payer MEDICARE, OTHER | END 2019-11-11 12:16 | disposition home or self-care (01) | LOC: LAB 12:15 | PROVIDERS: ATTEND Specialist | DX: I26.99 Other pulmonary embolism without acute cor pulmonale (principal) | CPT/HCPCS: 85610 ==

== ENCOUNTER 2019-11-15 13:23 | Outpatient (CLI) | payer MEDICARE, OTHER | END 2019-11-15 13:24 | disposition home or self-care (01) | LOC: LAB 13:23 | PROVIDERS: ATTEND Specialist | DX: I26.99 Other pulmonary embolism without acute cor pulmonale (principal) | CPT/HCPCS: 85610 ==

== ENCOUNTER 2019-12-27 11:31 | Outpatient (CLI) | payer MEDICARE, OTHER ==
[2019-12-27 13:52] LABS: INR 4.9 (0.8-1.2)
== END 2019-12-27 11:32 | disposition home or self-care (01) ==
LOC: LAB 11:31
PROVIDERS: ATTEND Internal Medicine
DX: I26.99 Other pulmonary embolism without acute cor pulmonale (principal)
CPT/HCPCS: 36415; 85610

== ENCOUNTER 2020-01-03 12:00 | Outpatient (CLI) | payer MEDICARE, OTHER | END 2020-01-03 12:01 | disposition home or self-care (01) | LOC: LAB 12:00 | PROVIDERS: ATTEND Internal Medicine | DX: I26.99 Other pulmonary embolism without acute cor pulmonale (principal) | CPT/HCPCS: 85610 ==

== ENCOUNTER 2020-01-17 13:03 | Outpatient (CLI) | payer MEDICARE, OTHER | END 2020-01-17 13:04 | disposition home or self-care (01) | LOC: LAB 13:03 | PROVIDERS: ATTEND Internal Medicine | DX: I26.99 Other pulmonary embolism without acute cor pulmonale (principal) | CPT/HCPCS: 85610 ==

== ENCOUNTER 2020-01-25 15:20 | Outpatient (CLI) | payer MEDICARE, OTHER ==
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
== END 2020-01-25 15:21 | disposition home or self-care (01) ==
LOC: PC 15:20
PROVIDERS: ATTEND Nurse Practitioner Family
DX: Z51.5 Encounter for palliative care (principal); F03.90 Unspecified dementia, unspecified severity, without behavioral disturbance, psychotic disturbance, mood disturbance, and anxiety; M25.561 Pain in right knee; M54.5 Low back pain; G89.29 Other chronic pain; K59.00 Constipation, unspecified; I10 Essential (primary) hypertension; E11.9 Type 2 diabetes mellitus without complications; Z79.4 Long term (current) use of insulin; Z79.01 Long term (current) use of anticoagulants; Z87.891 Personal history of nicotine dependence; Z66 Do not resuscitate
CPT/HCPCS: 99345

== ENCOUNTER 2020-02-13 12:43 | Outpatient (CLI) | payer MEDICARE, OTHER | END 2020-02-13 12:44 | disposition home or self-care (01) | LOC: LAB 12:43 | PROVIDERS: ATTEND Internal Medicine | DX: I26.99 Other pulmonary embolism without acute cor pulmonale (principal) | CPT/HCPCS: 85610 ==

== ENCOUNTER 2020-02-20 12:24 | Outpatient (CLI) | payer MEDICARE, OTHER | END 2020-02-20 12:25 | disposition home or self-care (01) | LOC: LAB 12:24 | PROVIDERS: ATTEND Internal Medicine | DX: I26.99 Other pulmonary embolism without acute cor pulmonale (principal) | CPT/HCPCS: 85610 ==

== ENCOUNTER 2020-02-28 12:25 | Outpatient (CLI) | payer MEDICARE, OTHER | END 2020-02-28 12:26 | disposition home or self-care (01) | LOC: LAB 12:25 | PROVIDERS: ATTEND Internal Medicine | DX: I26.99 Other pulmonary embolism without acute cor pulmonale (principal) | CPT/HCPCS: 85610 ==

== ENCOUNTER 2020-03-09 12:45 | Outpatient (CLI) | payer MEDICARE, OTHER ==
--- NOTE | 2020-03-10 15:21 | CONSULTATION NOTE ---
Palliative Care Follow Up - Referral Referring Provider: Dr. 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 The patient has a history of BPH symptoms. He was initiated on tamsulosin during his last hospitalization and it is presently at 0.8 mg daily. In the last month the patient has noted that he has difficulty with starting and stopping his urinary stream and it takes a long time to completely empty his bladder as the stream is weak and will result in dribbling. He denies any dysuria. He had not previously reported this to his as she felt that the length of time he was spending in the restroom was due to constipation and not urinary complaints. He does have a history of constipation on last evaluation he was initiated on MiraLAX half of a cup daily. He has been able to move his bowels more regularly but still reports that his bowel movements are "too stiff." The last few weeks the patient has been going to bed earlier has he has not "felt quite well" prior to bedtime. He has not been able to articulate what the actual presenting symptoms are to his . He does have a history of diabetes mellitus but does not take his blood glucose level and does not has allow his to do so. He is an individual that is quite set in his ways including the method of administration of his medications despite prompting with his by his . He has been consuming brownie bites in the early evening prior to bed. He always wears socks and slippers within his home. He often will forget to use his walker for support and will continue to have his cane on hand that has been a stable for him for many years despite not using it for actual stability. He is reporting numbness to his extremities more specifically to his bilateral lower extremities with the right worse than the left. He also has chronic right knee pain that seems to have been a worsening problem since 2008. He takes hydrocodone/acetaminophen 6 to 9 tablets daily for his pain. He denies tingling to his lower extremities. The patient is well groomed, sitting up in his recliner in his living room.No acute distress noted. Past Medical History: Patient has a past medical history of hypertension, hyperlipidemia, coronary artery disease, severe sleep apnea diagnosed 2002 with CPAP use, dementia, diabetes mellitus type 2, BPH, chronic sinusitis, claustrophobia, osteoarthritis, chronic back pain, history of CABG,Pulmonary embolism 2019 (on coumadin). Social History - Living Situation Living arrangement: At home Living Situation: With spouse/s.o. Support System: The patient is , Jason have been for approximately 25 years. They have no children together. The patient has 3 children from his first marriage but they have been estranged for many years and do not communicate. Patient grew up in [place], [place]. They relocated to [facility] in 2010. The patient his now have a working landline and therefore the patient's Lifeline is now working. There Wi-Fi continues to be a problem. His is working on interviewing private caregivers that would be one call if there was a need for assistance. Medications/Allergies - Medications Home Medications: Ambulatory Orders Medication Instructions Recorded Confirmed Atorvastatin Calcium 20 mg PO DAILY 03/04/16 01/26/20 Losartan Potassium 100 mg PO DAILY 03/04/16 01/26/20 Omeprazole 20 mg PO DAILY 03/04/16 01/26/20 carvediloL [Carvedilol] 3.125 mg PO BID 03/04/16 01/26/20 Insulin Aspart Prot/Insuln Asp 22 units SQ BID 11/06/19 01/26/20 [Novolog Mix 70-30 Vial] Magnesium Oxide [Mag Ox] 400 mg PO DAILYWM 11/06/19 01/26/20 Tamsulosin HCl [Flomax] 0.8 mg PO DAILY 11/06/19 01/26/20 Warfarin [Coumadin] 5 mg PO QDWARFARIN 11/06/19 01/26/20 hydroCHLOROthiazide 12.5 mg PO DAILY 11/06/19 01/26/20 [Hydrochlorothiazide] Hydrocodone/Acetaminophen [[place] 3 tab PO BID PRN 01/26/20 01/26/20 5-325 Tablet] polyethylene glycoL 3350 [Miralax] 17 g PO DAILY 01/26/20 01/26/20 Finasteride [Proscar] 5 mg PO DAILY 03/10/20 03/10/20 Gabapentin [Neurontin] 03/10/20 - Allergies Allergies/Adverse Reactions: Allergies Allergy/AdvReac Type Severity Reaction Status Date / Time atenolol AdvReac Mild Nausea Verified 01/26/20 15:19 oxycodone AdvReac Unknown Verified 01/26/20 15:19 Review of Systems - Constitutional Constitutional: reports: Poor appetite (eating less than he was previously at each meal), Other (No recent weight loss noted by patient or and his clothes still fit). denies: Fever - Eyes Eyes: reports: Corrective lenses (needed for reading) - Ears, Nose & Throat Ears, Nose & Throat: reports: Hearing loss. denies: Hearing aids - Cardiovascular Cardiovascular: denies: Chest pain, Edema - Respiratory Respiratory: denies: Cough - Gastrointestinal Gastrointestinal: reports: Constipation (reporting firmness to bowel movements). denies: Abdominal pain, Diarrhea, Nausea, Early satiety - Genitourinary Genitourinary: reports: Other (see HPI for full details) - Musculoskeletal Musculoskeletal: reports: Back pain, Stiffness, Joint pain (right knee), Assistive devices, Transfer issues, Other (history of falls) - Neurological Neurological: reports: General weakness, Numbness (BLE), Memory problems - Endocrine Endocrine: reports: Diabetes type 2 - All Other Systems All Other Systems: reports: Reviewed and negative (Review of systems supplemented by patient's , Jason.) Physical Exam - Vital Signs Temperature: 36.6 C Pulse Rate: 63 O2 Saturation: 97 (on RA) Blood Pressure: 142/70 (left arm) - Physical Exam General Appearance: positive: No acute distress, Alert, Other (well groomed, older appearing) Eyes Bilateral: positive: Normal inspection ENT: positive: No signs of dehydration Neck: positive: Trachea midline Cardiovascular: positive: Regular rate & rhythm, Systolic murmur Respiratory: positive: No respiratory distress, Breath sounds nml Abdomen: positive: Non-tender, Soft, Nml bowel sounds, Obese, Other (bladder nondistended) Skin: positive: Dryness Extremities: positive: No pedal edema Neurologic/Psychiatric: positive: Oriented x3 (STM impairment), Mood/affect nml, Other ( BLE strength equal and symmetric; +intact monofilament test to b/l feet with reported dullness noted more on R vs L side) Palliative Care - POLST Patient has POLST: Yes POLST Status: DNR, Selective Treatment Sleep: Variable sleep pattern Constipation: Yes, Opoid induced Performance Status: PPS 50% - Palliative Care Discussion: Patient reported frustration with his ability to void easily that he had not previously expressed to his . He is hoping to have an additional relief as tamsulosin has not been effective in providing adequate relief for his urinary tract symptoms. No evidence of a urinary tract infection given reported symptoms in the history. The patient is open to allowing his to check his blood glucose level in the evenings if he is not feeling well as he may be having a drop in his blood glucose level due to the choice of snack that he wishes to consume. Is quite a stubborn individual in regards to what he will be open to performing are not. He himself even reports that he is quite set in his ways with how he likes to do things. He likes to take all his medications at 1 time and it has been quite a length of time since he has checked his blood glucose levels. The patient and his spouse are committed to one another as they age in place. They are both adamant that they do not want either to be in a facility or half-way. Both the patient and his spouse are open to looking into private caregivers at the present time for an urgent needed in the future if no or assistance is needed for caregiving. Results - Lab Results Lab results reviewed: Yes Lab and Imaging Results: 11/06/2019 Estimated GFR 72, BUN 12, creatinine 1.0 11/03/2019 hemoglobin A1c 6.4% Impression and Recommendations - Palliative Care Impression: This is a 79-year-old gentleman with dementia who is having constipation and BPH symptoms that are presently not controlled. He is to put displaying some reports of not feeling well in the evenings that may be due to a hypoglycemic event given his choice of dietary snack before bedtime. The patient is open to adding a protein snack in the evenings moving forward. Palliative care will continue to provide support with goals of care, symptom management and anticipatory guidance. Recommendations/Counseling Done: 1. Benign prostate hypertrophy. Continues with LUTS symptoms on max dose of tamsulosin. Introduced initiation of Proscar 5 mg daily with review of side effects, purpose and dose with patient and . Specifically highlighted potential for Gynecomastia and breast tenderness with understanding verbalized. Rx for Proscar and tamsulosin sent to [facility] as per the 's request. Also discussed that the patient perform double voiding and how to proceed with this task. We will continue to monitor. 2.Diabetes mellitus type 2. Presently managed with insulin therapy as per PCP. Last hemoglobin A1c 6.4% on 11/03/2019. Goal A1c given the patient's age and comorbidities would be 7 to 8%. Have a suspicion that patient may be having episodes of hypoglycemia closer to bedtime when he was is reporting not feeling well as he is having fine carbohydrates at as a snack. Recommend avoiding find hypocarbohydrates before bed and recommend protein to maintain stable blood glucose level such as tree nuts, cheese, peanut butter and patient is open to this. Strongly encourage the patient allow his to assist with checking his blood glucose level if he is not feeling well and allowing recording to track any trends. 3. Constipation. Multifactorial with sedentary lifestyle and opioid use contributing. Has had some improvement since initiation of MiraLAX. Increase increase MiraLAX to 1 cap dissolved in 4 ounces of liquid daily for constipation. Continue to monitor. 4. Peripheral neuropathy in the setting of diabetes mellitus type 2. Monofilament intact to bilateral feet but noted decreased sensation on the right lower extremity versus the left lower extremity. Is scheduled to follow-up with [facility] next month for diabetic foot exam and toenail trimming. Initiate gabapentin 100 mg take 1 capsule at bedtime x1 week and if able to tolerate then increase to 2 capsules nightly for peripheral neuropathy. This Rx was sent to [facility] at the patient's request. Reviewed purpose, dose and side effects with the patient and spouse with understanding verbalized. Given the patient's tendency to only take medications 1 time daily this will impede ability to have scheduled administration times multiple times during the day for gabapentin. Monitor response and symptom management. 5. Advanced care planning. Patient is terrified of bandar Covid19. He is concerned about dying as he is enjoying his life. Presently there is a shortage regarding allocation of COVID-19 vaccines and will monitor when this can be administered to the patient's. Discussed caregiving services via company versus private and provided contact information for [facility] and a list of [facility] that [place] for the for future use. Time Spent: Total time spent 75 minutes with greater than 50% of this spent in counseling and coordination of care With patient and spouse; review of pathophysiology of BPH and symptom management; examination of patient; supportive listening; review of new medications with purpose, dose and side effects reviewed; and anticipatory guidance. Disclaimer: The chart note was formulated using voice recognition technology and unfortunately sound alike errors may occur.
== END 2020-03-09 12:46 | disposition home or self-care (01) ==
LOC: PC 12:45
PROVIDERS: ATTEND Nurse Practitioner Family
DX: Z51.5 Encounter for palliative care (principal); F03.90 Unspecified dementia, unspecified severity, without behavioral disturbance, psychotic disturbance, mood disturbance, and anxiety; N40.1 Benign prostatic hyperplasia with lower urinary tract symptoms; R39.12 Poor urinary stream; K59.03 Drug induced constipation; T40.2X5A Adverse effect of other opioids, initial encounter; E11.42 Type 2 diabetes mellitus with diabetic polyneuropathy; Z79.4 Long term (current) use of insulin; Z66 Do not resuscitate
CPT/HCPCS: 99350

== ENCOUNTER 2020-04-03 08:00 | Outpatient (CLI) | payer MEDICARE, OTHER | END 2020-04-03 23:59 | disposition home or self-care (01) | LOC: LAB 08:00 | PROVIDERS: ATTEND Internal Medicine | DX: I26.99 Other pulmonary embolism without acute cor pulmonale (principal) | CPT/HCPCS: 85610 ==

== ENCOUNTER 2020-04-10 14:45 | Outpatient (CLI) | payer MEDICARE, OTHER ==
--- NOTE | 2020-04-10 16:19 | CONSULTATION NOTE ---
Palliative Care Follow Up - Referral Referring Provider: Dr. Morro Nunez Time of Visit: 2381-8341 Referral setting: Home Referral Reason: Diabetes mellitus/Dementia/BPH - Information Sources Records reviewed: Previous records reviewed History/Review of Systems obtained from: Patient, Family (spouse, Jason) Exam limitations: Clinical condition (Cognitive impairment due to dementia) - History of Present Illness Update Brief HPI Update: This is a 79-year-old gentleman who was seen in follow-up today for BPH symptom s, peripheral neuropathy due to diabetes mellitus, potential recent hypoglycemia, and dementia within his home with his , Jason present. Patient has a history of BPH symptoms. He was initiated on tamsulosin during his last hospitalization in October 2019 and is presently on 0.8 mg daily. On last evaluation due to difficulty starting and stopping his urinary stream he was initiated on Proscar 5 mg daily. He denies any dysuria. Since initiation of Proscar over the last month the patient's feels that he is not demonstrating urinary complaints and is spending less time in the restroom. Overall, noted improvement. The patient is not taking MiraLAX that was previously recommended for constipation. He is reporting and the supplements routine bowel movements without need of MiraLAX at the present time. But does have on hand if symptoms of constipation reemerge. The patient has been doing fairly well with having a protein snack in the evenings prior to bedtime to ensure blood glucose stabilization. He is no longer reporting to his that he is not "feeling quite well" and going to bed earlier than his typical normal routine. He is not wanting to check his blood glucose levels in the evening and has not allowed his to do so either. Since initiating gabapentin 200 mg nightly he reports improvement of numbness to his lower extremities. His also notes that in the last several weeks is complaining about his pain last for the first time "in years." He continues to have chronic right knee pain that has worsened since 2008. He continues to take hydrocodone/acetaminophen approximately 6 tablets daily for his pain. The patient's is noting increased cognitive impairment with his ability to perform certain tasks. The patient over the last several weeks is now not able to operate a TV remote without assistance and is unable to use a cell phone as he is not able to recall how to utilize both of these electronic devices. The patient reports of a well that he is feeling quite well. He is well groomed, sitting up in his recliner chair in the living room, no evidence of acute distress. Past Medical History: Patient has a past medical history of hypertension, hyperlipidemia, coronary artery disease, severe sleep apnea diagnosed 2002 with CPAP use, dementia, diabetes mellitus type 2, BPH, chronic sinusitis, claustrophobia, osteoarthritis, chronic back pain, history of CABG, pulmonary embolism and October 2019 (on Coumadin). Social History - Living Situation Living arrangement: At home Living Situation: With spouse/s.o. Support System: Very heavy for approximately 25 years. They have no children together. The patient has 3 children from his first marriage, but they have been estranged for many years and do not communicate. The patient grew up in [place], [place]. They relocated to [facility] in 2010. The patient's has found a caregiver who is very similar in habits to the patient such as being a night owl and is a great fit. Unfortunately, this caregi brittaney will only be available for the next several months to be workers compensation legal secretary as Jason needs her, but will be relocating out of the area and therefore at that time Jason will need to look at an additional caregiving support. Medications/Allergies - Medications Home Medications: Ambulatory Orders Medication Instructions Recorded Confirmed Atorvastatin Calcium 20 mg PO DAILY 03/04/16 01/26/20 Losartan Potassium 100 mg PO DAILY 03/04/16 01/26/20 Omeprazole 20 mg PO DAILY 03/04/16 01/26/20 carvediloL [Carvedilol] 3.125 mg PO BID 03/04/16 01/26/20 Insulin Aspart Prot/Insuln Asp 22 units SQ BID 11/06/19 01/26/20 [Novolog Mix 70-30 Vial] Magnesium Oxide [Mag Ox] 400 mg PO DAILYWM 11/06/19 01/26/20 Tamsulosin HCl [Flomax] 0.8 mg PO DAILY 11/06/19 01/26/20 Warfarin [Coumadin] 5 mg PO QDWARFARIN 11/06/19 01/26/20 hydroCHLOROthiazide 12.5 mg PO DAILY 11/06/19 01/26/20 [Hydrochlorothiazide] Hydrocodone/Acetaminophen [[place] 3 tab PO BID PRN 01/26/20 01/26/20 5-325 Tablet] polyethylene glycoL 3350 [Miralax] 17 g PO PRN PRN 01/26/20 01/26/20 Finasteride [Proscar] 5 mg PO DAILY 03/10/20 03/10/20 Gabapentin [Neurontin] 200 mg PO QPM 03/10/20 - Allergies Allergies/Adverse Reactions: Allergies Allergy/AdvReac Type Severity Reaction Status Date / Time atenolol AdvReac Mild Nausea Verified 01/26/20 15:19 oxycodone AdvReac Unknown Verified 01/26/20 15:19 Review of Systems - Constitutional Constitutional: reports: Poor appetite (eating less than he was previously at each meal), Other (No recent weight loss noted by patient or and his clothes still fit well). denies: Fever - Eyes Eyes: reports: Corrective lenses - Ears, Nose & Throat Ears, Nose & Throat: reports: Hearing loss. denies: Hearing aids, Dry mouth - Cardiovascular Cardiovascular: denies: Chest pain, Edema - Respiratory Respiratory: denies: Cough - Gastrointestinal Gastrointestinal: denies: Constipation (not taking miralax routinely and reports to regular bowel movements and supported by the patient's .), Diarrhea, Nausea, Early satiety - Genitourinary Genitourinary: reports: Other (see HPI for full details). denies: Dysuria - Musculoskeletal Musculoskeletal: reports: Back pain (utilizes the heating function on his recliner chair with positive effect), Stiffness, Joint pain (right knee), Assistive devices, Transfer issues, Other (history of falls, but no recent falls) - Integumentary Integumentary: reports: Dryness, Other (elongated toenails with schedueld inventory planner appt 04/16/2020) - Neurological Neurological: reports: General weakness, Numbness (BLE), Memory problems - Psychiatric Psychiatric: denies: Depression - Endocrine Endocrine: reports: Diabetes type 2 (does not check his blood glucose levels) - Hematologic/Lymphatic Hematologic/Lymph: denies: Bruising - All Other Systems All Other Systems: reports: Reviewed and negative (Review of systems supplemented by patient's , Jason.) Physical Exam - Vital Signs Temperature: 36.6 C Pulse Rate: 70 O2 Saturation: 97 (on RA at rest) Blood Pressure: 151/81 (left wrist cuff) - Physical Exam General Appearance: positive: No acute distress, Alert, Other (well groomed, older appearing) Eyes Bilateral: positive: Normal inspection Neck: positive: Trachea midline Cardiovascular: positive: Regular rate & rhythm, Systolic murmur Respiratory: positive: No respiratory distress, Breath sounds nml. negative: Rales Abdomen: positive: Non-tender, Soft, Nml bowel sounds, Obese Skin: positive: Dryness Extremities: positive: No pedal edema Neurologic/Psychiatric: positive: Oriented x3 (STM impairment), Mood/affect nml Palliative Care - POLST Patient has POLST: Yes POLST Status: DNR, Selective Treatment Pain: Pain improved (see HPI) Tiredness/Fatigue: None Drowsiness/Sedation: None Nausea: None Anorexia: Mild (1-3) Depression: None Anxiety: None Feelings of wellbeing/Perceived Quality of Life: Good Sleep: Sleeps well (is a nightowl and will get up around 11-12noon) Constipation: Managed, Intermittent constipation Performance Status: PPS 50% - Palliative Care Discussion: The patient has had improvement of his voiding symptoms demonstrated by the fact that he is no longer spending extra amounts of time in the restroom. He does not note a change in urinary stream. Therefore, benefit since addition of Proscar to tamsulosin. We will continue Proscar in addition to tamsulosin and continue to monitor for symptom management setting expectations with the patient and spouse. Despite the patient noted that checking his blood glucose levels when he was potentially having evidence of lows with hypoglycemia based on his symptomatology has responded well to introduction of a protein snack in the evenings resolving his symptoms. Overall, since introduction of gabapentin he is sleeping better at night as well as reporting a decrease in his overall pain for additional benefit. He is also having a reduction in his reported symptoms of numbness to his lower extremities due to diabetic neuropathy. He is aware to continue to wear appropriate foot attire and not go about foot in the home. He is scheduled for podiatry evaluation 04/16/2020. The patient and his both have questions regarding continuation of Coumadin therapy due to his history of pulmonary emboli in October 2019 for which he had been symptomatic. The patient is given the option for continuation of Coumadin therapy for prevention of the future of events would prefer continuation as he is still able to attend monthly PT/INR evaluations via blood draws at the hospital. We will follow-up with the patient's PCP regarding length of time for therapy. Impression and Recommendations - Palliative Care Impression: This is a 71-year-old gentleman with dementia with in increased cognitive decline with BPH symptoms and peripheral neuropathy that have responded well to medication interventions. He continues on Coumadin therapy for his recent history of pulmonary embolus and is requesting more definitive timeline for the length of time he should be on this therapy. Palliative care will continue to provide support with goals of care, care coordination, symptom management and anticipatory guidance. Recommendations/Counseling Done: 1. Diabetes mellitus type 2. Presently managed with insulin therapy as per PCP. Last hemoglobin A1c 6.4% on 11/03/2019. Has responded well to introduction of protein snack in the evenings to stabilize his nocturnal blood glucose levels however, he continues to be resistant to checking his blood glucose levels and therefore unable to determine if he was actually having episodes of hypoglycemia however, would be suspicious based on his symptomatology. Continue to encourage nighttime protein snack such as tree nuts, cheese or peanut butter to ensure stabilization of blood glucose levels overnight. 2. Benign prostate hypertrophy.Patient has had improvement of his LUTS symptoms since in reduction of Proscar 5 mg daily. We will continue Proscar 5 mg daily in addition of tamsulosin 0.8 mg daily. Both of these prescriptions have been previously sent to [facility] at the patient's 's request. Continue to encourage double voiding. Continue to monitor for symptom management. 3. Peripheral neuropathy in the setting of diabetes mellitus type 2. However patient has had a positive response to initiation of gabapentin with reduction of his peripheral neuropathy symptoms as well as his generalized chronic OA pain. Continue gabapentin 200 mg capsules at bedtime. Prescription sent to [facility] for mail order prescriptions per 's request. We will continue to monitor patient's response and adjust medication regimen accordingly. 4. Pulmonary embolus. Diagnosed October 2019 and initiated on Coumadin therapy. Last INR 3.3 per 's report. There was no known provoking cause for his pulmonary emboli. Patient and wish to determine length of therapy and will reach out to patient's PCP, Dr. Nunez to clarify regarding length of treatment. 5. Dementia. No reports of dysphagia. No recent falls. Chronic. Progressive. On no disease modifying agents. Given the patient's advanced age and comorbidities a gradual decline is expected. The is assessing for caregiving support on an as-needed basis being proactive in regards to future potential needs if she is unable to be in the home overseeing the patient and his care. She is taking over more and more managing his medications and he requires queing. Total time spent 45 minutes with greater than 50% of this spent in counseling and coordination of care with patient and spouse; review of medications to send to mail order pharmacy; review of pain and symptom management and anticipatory guidance. Disclaimer: The chart note was formulated using voice recognition technology and unfortunately sound alike errors may occur.
== END 2020-04-10 14:46 | disposition home or self-care (01) ==
LOC: PC 14:45
PROVIDERS: ATTEND Nurse Practitioner Family
DX: Z51.5 Encounter for palliative care (principal); F03.90 Unspecified dementia, unspecified severity, without behavioral disturbance, psychotic disturbance, mood disturbance, and anxiety; E11.42 Type 2 diabetes mellitus with diabetic polyneuropathy; N40.1 Benign prostatic hyperplasia with lower urinary tract symptoms; R39.198 Other difficulties with micturition; G89.29 Other chronic pain; M54.9 Dorsalgia, unspecified; M19.90 Unspecified osteoarthritis, unspecified site; I26.99 Other pulmonary embolism without acute cor pulmonale; G47.30 Sleep apnea, unspecified; H54.7 Unspecified visual loss; H91.90 Unspecified hearing loss, unspecified ear; Z66 Do not resuscitate; Z91.19 Patient's noncompliance with other medical treatment and regimen; Z79.01 Long term (current) use of anticoagulants; Z79.4 Long term (current) use of insulin; Z79.899 Other long term (current) drug therapy; Z79.891 Long term (current) use of opiate analgesic; Z95.1 Presence of aortocoronary bypass graft
CPT/HCPCS: 99349

== ENCOUNTER 2020-05-03 13:43 | Outpatient (CLI) | payer MEDICARE, OTHER | END 2020-05-03 13:44 | disposition home or self-care (01) | LOC: LAB 13:43 | PROVIDERS: ATTEND Internal Medicine | DX: I26.99 Other pulmonary embolism without acute cor pulmonale (principal) | CPT/HCPCS: 85610 ==

== ENCOUNTER 2020-05-10 11:20 | Outpatient (CLI) | payer MEDICARE, OTHER | END 2020-05-10 11:21 | disposition home or self-care (01) | LOC: LAB 11:20 | PROVIDERS: ATTEND Internal Medicine | DX: I26.99 Other pulmonary embolism without acute cor pulmonale (principal) | CPT/HCPCS: 85610 ==

== ENCOUNTER 2020-05-21 | Outpatient (CLI) | payer MEDICARE, OTHER ==
--- NOTE | 2020-05-21 17:11 | CONSULTATION NOTE ---
Palliative Care Follow Up - Referral Referring Provider: Dr. 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 The patient has had a diagnosis of dementia for several years. It has been a struggle for the patient's in the past to have the patient be the regularly. It is now increased that the patient does not wish to proceed with bathing on a regular basis and often times may go 2 weeks without bathing. This leads to increased skin dryness, flaking and body odor. The patient also is often forgetting to wash his hands after utilizing the restroom. The patient's has attempted to place signs for cueing and reminders for the patient in the bathroom. She is also attempted to get a shower chair which the patient does not wish to utilize. The patient himself does not perceive a problem with bathing and hygiene irregularly. Presently the patient's bowel movements are controlled. He is having a bowel movement on a daily basis and if he has not had a bowel movement in approximately 3 days then MiraLAX is utilized with positive effect for bowel reset and then he is regular again. He was recently seen by his PCP to discuss continuation of Coumadin therapy in the setting of an unprovoked pulmonary emboli that was diagnosed in October 2019 when he was initiated on Coumadin therapy. Due to his high risk of falling and subsequent injury per the 's report after shared decision making Coumadin therapy has been discontinued by the patient's PCP. Will request medical records from the patient's PCP outlining this decision making process. The patient continues to report urinary frequency which may be due to his underlying diabetes. He denies dysuria. He has had improvement with his voiding pattern since introduction of Proscar 5 mg daily. He continues on tamsulosin 0.5 mg daily. He has a longstanding history of diabetes mellitus type 2. He is managed on NovoLog 22 units twice daily. He does not check his blood glucose levels and refuses to have his provide assistance. This is been a longstanding issue. His PCP wish to check his blood sugar in office however, due to the patient's fatiguing after being out of the home he requested to go home versus having further reevaluation. Blood glucose level obtained today randomly after the patient has had his 22 units of NovoLog Mix and consuming a meal at 242 as a result. The patient is seen in the living room sitting up in his recliner chair, no evidence of acute distress. Past Medical History: Patient has a past medical history of hypertension, hyperlipidemia, coronary artery disease, severe sleep apnea diagnosed 2002 with CPAP use, dementia, diabetes mellitus type 2, BPH, chronic sinusitis, claustrophobia, osteoarthritis , chronic back pain, history of CABG, pulmonary embolism in October 2019 (on Coumadin 10/2019 to 05/2020). Social History - Living Situation Living arrangement: At home Living Situation: With spouse/s.o. Support System: Patient and spouse have been for approximately 25 years. They have no children together. The patient has 3 children from his first marriage, but they have been estranged for many years and do not communicate. The patient grew up in [place], [place]. They relocated to [facility] in 2010. Jason has formed caregiver support groups in the past for spouses of patient's with dementia---she is the only remaining member with their spouse still living. Jason has copies of the private caregiving list from [facility] and agency list. Medications/Allergies - Medications Home Medications: Ambulatory Orders Medication Instructions Recorded Confirmed Atorvastatin Calcium 20 mg PO DAILY 03/04/16 01/26/20 Losartan Potassium 100 mg PO DAILY 03/04/16 01/26/20 Omeprazole 20 mg PO DAILY 03/04/16 01/26/20 carvediloL [Carvedilol] 3.125 mg PO BID 03/04/16 01/26/20 Insulin Aspart Prot/Insuln Asp 22 units SQ BID 11/06/19 01/26/20 [Novolog Mix 70-30 Vial] Magnesium Oxide [Mag Ox] 400 mg PO DAILYWM 11/06/19 01/26/20 Tamsulosin HCl [Flomax] 0.8 mg PO DAILY 11/06/19 01/26/20 hydroCHLOROthiazide 12.5 mg PO DAILY 11/06/19 01/26/20 [Hydrochlorothiazide] Hydrocodone/Acetaminophen [[place] 3 tab PO BID PRN 01/26/20 01/26/20 5-325 Tablet] polyethylene glycoL 3350 [Miralax] 17 g PO PRN PRN 01/26/20 01/26/20 Finasteride [Proscar] 5 mg PO DAILY 03/10/20 03/10/20 Gabapentin [Neurontin] 200 mg PO QPM 03/10/20 - Allergies Allergies/Adverse Reactions: Allergies Allergy/AdvReac Type Severity Reaction Status Date / Time atenolol AdvReac Mild Nausea Verified 01/26/20 15:19 oxycodone AdvReac Unknown Verified 01/26/20 15:19 Review of Systems - Constitutional Constitutional: reports: Other (No recent weight loss noted by patient or and his clothes still fit well). denies: Fatigue, Fever - Eyes Eyes: reports: Corrective lenses - Ears, Nose & Throat Ears, Nose & Throat: reports: Hearing loss. denies: Hearing aids, Nasal vini estion - Cardiovascular Cardiovascular: denies: Chest pain, Lightheadedness - Respiratory Respiratory: denies: Cough - Gastrointestinal Gastrointestinal: reports: Constipation (controlled, see HPI), Other (Fair appetite). denies: Abdominal pain, Vomiting - Genitourinary Genitourinary: reports: Frequency, Nocturia, Other (see HPI for full details). denies: Dysuria - Musculoskeletal Musculoskeletal: reports: Back pain (chronic), Stiffness, Joint pain (right knee), Assistive devices (cane or walker), Transfer issues, Other (history of falls, but no recent falls) - Integumentary Integumentary: reports: Dryness - Neurological Neurological: reports: General weakness, Numbness (BLE improved, see HPI), Memory problems - Psychiatric Psychiatric: reports: Other (declining to bathe routinely, see HPI) - Endocrine Endocrine: reports: Diabetes type 2 (see HPI, random BG 242 today) - Hematologic/Lymphatic Hematologic/Lymph: reports: Other (History of PE 10/2019). denies: Recurrent infections - All Other Systems All Other Systems: reports: Reviewed and negative (Review of systems supplemented by patient's , Jason.) Physical Exam - Vital Signs Temperature: 36.4 C Pulse Rate: 70 O2 Saturation: 97 (on RA) Blood Pressure: 150/80 (left arm) - Physical Exam General Appearance: positive: No acute distress, Alert, Other (older appearing in sweat clothes) Eyes Bilateral: positive: Normal inspection ENT: positive: No signs of dehydration Neck: positive: Trachea midline Cardiovascular: positive: Regular rate & rhythm, Systolic murmur Respiratory: positive: No respiratory distress, Breath sounds nml Abdomen: positive: Non-tender, Soft, Nml bowel sounds, Obese Skin: positive: Dryness Extremities: positive: No pedal edema Neurologic/Psychiatric: positive: Oriented x3 (STM impairment), Mood/affect nml Palliative Care - POLST Patient has POLST: Yes POLST Status: DNR, Selective Treatment Pain: Comment (see HPI for full details) Performance Status: Ambulatory with walker or cane. No recent falls. Intermittent constipation that is managed. PPS 50% - Palliative Care Discussion: The patient is opting to not bathe routinely and this is distressing to the patient's even though she recognizes this is a behavior affiliated with the patient's underlying dementia. However, it is resulting in increased skin dryness that can then cycle 2 pruritus. Recommended use of a shower chair to the patient but this was declined. Would recommend continual gentle cueing by the to the patient. Did strike a bargain with the patient that he will shower at least on a weekly basis to and improve his overall skin quality to which he is presently amenable to. The patient prefers not to have his blood glucose level checked. Due to his random blood glucose level of 242 is in agreement of allowing his to check for the next 2 weeks more likely this will be for a weekly basis fasting in the morning. Impression and Recommendations - Palliative Care Impression: This is a 79-year-old gentleman with dementia with increased cognitive decline with BPH symptoms and peripheral neuropathy. He is presenting with reluctance and resistance for routine hygiene maintenance due to his underlying dementia. Discussed strategies with the patient for more routine bathing. Palliative care will continue to provide support for goals of care, care coordination, symptom management and anticipatory guidance. Recommendations/Counseling Done: 1. Diabetes mellitus type 2. Presently managed with insulin therapy as per PCP. Last hemoglobin A1c 6.4% on 11/03/2019. His random blood glucose level today was 242. Will follow-up with his PCP if desires additional management and reques daniel that patient allow his to obtain his blood glucose level daily for next 14 days with more realistic goal of 7 days given the patient's aversion. Requested call with blood glucose reading results and will coordinate with Dr. Nunez regarding any adjustments needed to the patient's insulin. May require obtainment of HgA1C at next visit. Continue to encourage routine blood glucose monitoring and demonstrated technique to . 2. Pulmonary embolus. Diagnosed October 2019 and initiated on Coumadin therapy. No longer on coumadin therapy after discussion with PCP regarding risk vs benefit per 's report. Will request last OV note with PCP. 3. Benign prostate hypertrophy. Patient has had improvement of his LUTS symptoms since in initiation of Proscar 5 mg daily. We will continue Proscar 5 mg daily in addition of tamsulosin 0.8 mg daily. Some increased urinary frequency may also be due to underlying diabetes mellitus was reviewwed with patient and . Continue to encourage double voiding. Continue to monitor for symptom management. 4. Peripheral neuropathy in the setting of diabetes mellitus type 2. However patient has had a positive response to initiation of gabapentin with reduction of his peripheral neuropathy symptoms as well as his generalized chronic OA pain. Continue gabapentin 200 mg capsules at bedtime. Prescription sent to [facility] for mail order prescriptions per 's request. We will continue to monitor patient's response and adjust medication regimen accordingly. 5. Dementia. No recent falls. Chronic. Progressive. On no disease modifying agents. Given the patient's advanced age and comorbidities a gradual decline is expected. Reassurance provided to patient's regarding patient's aversion to routine hygiene due to dementia. Patient is agreeable to showering weekly and this has been written down for patient's reference to agreement. Recommended use of shower chair for ease but patient declines. Total time spent 50 minutes with greater than 50% of this spent in counseling and coordination of care with patient and spouse; examination of patient; review of pain and symptom management and anticipatory guidance. Disclaimer: The chart note was formulated using voice recognition technology and unfortunately sound alike errors may occur.
== END 2020-05-21 14:11 | disposition home or self-care (01) ==
CPT/HCPCS: 99349

== ENCOUNTER 2020-06-25 14:40 | Outpatient (CLI) | payer MEDICARE, OTHER ==
--- NOTE | 2020-06-25 17:21 | CONSULTATION NOTE ---
Palliative Care Follow Up - Referral Referring Provider: Dr. Morro Nunez Time of Visit: [id number] Referral setting: Home Referral Reason: Diabetes Mellitus/Dementia/BPH/Neuropathy - Information Sources Records reviewed: Previous records reviewed History/Review of Systems obtained from: Patient, Family (spouse/DPMICAELA Gomez) Exam limitations: Clinical condition (cognitive impairment due to dementia) - History of Present Illness Update Brief HPI Update: This is a 79-year-old gentleman who seen in follow-up today for BPH symptoms, peripheral neuropathy, diabetes mellitus type 2 and dementia within his home with his , Jason present. The patient finds he has difficulty initiating voiding and will not have a alen priscila stream having to void every 2 hours, approximately. The patient is presently optimized with tamsulosin 0.8 mg daily as well as Proscar 5 mg daily. A recommendation was made for the patient that next up would be to be evaluated by urologist with potential surgery however, this is not preferable to the patient given his past history of having coded 2 times during his last 2 procedures and therefore, he would not be open to this. Since having a discussion with his PCP his reports that he does not appear to be complaining regarding his voiding tendency is as he wants was. He has a history of constipation that is presently controlled with as needed MiraLAX. He denies any discomfort during defecation. The patient has been quite compliant with allowing oversight from his /DPMICAELA regarding checking his blood glucose levels which she has been doing on a daily basis. Upon review his blood glucose levels have been approximately 214.5 on average as follows; 207, 220, 178, 293, 307, 263. The patient's NovoLog 70/30 mix was increased to 24 units on 05/29 and has been tolerating this well and remaining at 22 units in the evening via subcutaneous injection. He is consuming his protein snacks in the evening and has not noticed any shakiness or lows. We will obtain hemoglobin A1c today. The patient reports control and is under lying neuropathy to his lower extremities. He is sleeping well during the night and getting up less frequently. Patient is seen in the living room sitting up in his recliner chair, slightly disheveled, no evidence of acute distress. Past Medical History: Patient has a past medical history of hypertension, hyperlipidemia, coronary artery disease, severe sleep apnea diagnosed 2002 with CPAP use, dementia, diabetes mellitus type 2, BPH, chronic sinusitis, claustrophobia, osteoarthritis, chronic back pain, history of CABG, pulmonary embolism in October 2019 (on Coumadin 10/2019 to 05/2020). Social History - Living Situation Living arrangement: At home Living Situation: With spouse/s.o. Support System: Patient and spouse have been for approximately 25 years. They have no children together. The patient has 3 children from his first marriage, but they have been estranged for many years and do not communicate. The patient grew up in [place], [place]. They relocated to [facility] in 2010. Jason's sister is visiting for 3 weeks starting tomorrow and all parties including the patient are looking forward to the visit. Medications/Allergies - Medications Home Medications: Ambulatory Orders Medication Instructions Recorded Confirmed Atorvastatin Calcium 20 mg PO DAILY 03/04/16 01/26/20 Losartan Potassium 100 mg PO DAILY 03/04/16 01/26/20 Omeprazole 20 mg PO DAILY 03/04/16 01/26/20 carvediloL [Carvedilol] 3.125 mg PO BID 03/04/16 01/26/20 Magnesium Oxide [Mag Ox] 400 mg PO DAILYWM 11/06/19 01/26/20 Tamsulosin HCl [Flomax] 0.8 mg PO DAILY 11/06/19 01/26/20 hydroCHLOROthiazide 12.5 mg PO DAILY 11/06/19 01/26/20 [Hydrochlorothiazide] Hydrocodone/Acetaminophen [[place] 3 tab PO BID PRN 01/26/20 01/26/20 5-325 Tablet] polyethylene glycoL 3350 [Miralax] 17 g PO PRN PRN 01/26/20 01/26/20 Finasteride [Proscar] 5 mg PO DAILY 03/10/20 03/10/20 Gabapentin [Neurontin] 200 mg PO QPM 03/10/20 Insulin Aspart Prot/Insuln Asp 24 units SQ BID 05/29/20 05/29/20 [Insulin Aspart Prot ([id number])] - Allergies Allergies/Adverse Reactions: Allergies Allergy/AdvReac Type Severity Reaction Status Date / Time atenolol AdvReac Mild Nausea Verified 06/26/20 15:52 oxycodone AdvReac Unknown Verified 06/26/20 15:52 Review of Systems - Constitutional Constitutional: reports: Other (No recent weight loss noted by patient or and his clothes still fit well). denies: Fatigue, Fever - Eyes Eyes: reports: Corrective lenses - Ears, Nose & Throat Ears, Nose & Throat: reports: Hearing loss. denies: Hearing aids, Nasal congestion - Cardiovascular Cardiovascular: denies: Chest pain, Edema - Respiratory Respiratory: denies: Cough - Gastrointestinal Gastrointestinal: reports: Constipation (controlled, see HPI), Other (Fair appetite and has improved recently). denies: Vomiting - Genitourinary Genitourinary: reports: Frequency, Other (see HPI for full details). denies: Dysuria - Musculoskeletal Musculoskeletal: reports: Back pain (chronic), Stiffness, Assistive devices (c ane or walker), Transfer issues, Other (history of falls, but no recent falls) - Integumentary Integumentary: reports: Dryness - Neurological Neurological: reports: General weakness, Numbness (BLE controlled, see HPI), Memory problems - Psychiatric Psychiatric: reports: Other (improved with bathing routine to appx 1 shower per week vs every 2 weeks) - Endocrine Endocrine: reports: Diabetes type 2 (obtain HgA1C today and follow with result) - Hematologic/Lymphatic Hematologic/Lymph: reports: Other (History of PE 10/2019, coumadin has been discontinued). denies: Recurrent infections - All Other Systems All Other Systems: reports: Reviewed and negative (Review of systems supplemented by patient's , Jason.) Physical Exam - Vital Signs Temperature: 36.5 C Pulse Rate: 74 O2 Saturation: 96 (on RA) Blood Pressure: 144/80 (left arm) - Physical Exam General Appearance: positive: No acute distress, Alert, Other (older appearing in sweat clothes, slightly dishelved) Eyes Bilateral: positive: Normal inspection ENT: positive: No signs of dehydration Neck: positive: Trachea midline Cardiovascular: positive: Regular rate & rhythm, Systolic murmur Respiratory: positive: No respiratory distress, Breath sounds nml. negative: Rales Abdomen: positive: Non-tender, Soft, Nml bowel sounds, Obese Skin: positive: Dryness Extremities: positive: No pedal edema Neurologic/Psychiatric: positive: Oriented x3 (STM impairment), Mood/affect nml Palliative Care - POLST Patient has POLST: Yes POLST Status: DNR, Selective Treatment Pain: Comment (Pain controlled) - Palliative Care Discussion: The patient is bathing more routinely much to the 's pleasure. They are both looking forward to having the patient's sister be present for the next 3 weeks and exploring the area and having someone to break up thyroid not monotony of the routine that has been brought about by [email or web address]. The patient would benefit from further adjustment of his NovoLog 70/30 mix and will increase to 24 units twice daily and obtain hemoglobin A1c today. He is no longer displaying any signs and symptoms of potential hypoglycemia overnight since he has initiated and been compliant with his protein snacks in the evening. Also reinforced with positivity routine monitoring of his pelvis blood glucose levels daily with oversight by his spouse/DPOA. The patient demonstrates BPH symptoms and given his reluctance due to prior surgeries is not open to any additional interventions outside of medical management had as such being medically optimized does not have an interest in pursuing a urology appointment at this time as he would not wish to pursue a surgical intervention. Results - Lab Results Lab and Imaging Results: 06/25/2020 HgA1C pending Impression and Recommendations - Palliative Care Impression: This is a 79-year-old gentleman with dementia with BPH symptoms, peripheral monica ropathy and diabetes mellitus type 2. He has had improvement in his allowance of routine checking of his blood glucose daily as well as his routine hygiene maintenance much to his 's pleasure. Hemoglobin A1c obtained today and will follow with results. Increase NovoLog 70/30 mix to 24 units twice daily. Continue to monitor and provide support to both the patient and spouse. Palliative care will continue to work on goals of care, care coordination, symptom management and anticipatory guidance. Recommendations/Counseling Done: 1. Diabetes mellitus type 2. Last hemoglobin A1c 6.4% on 11/03/2019 upon review of recent blood glucose levels will increase NovoLog 70/30 mix to 24 units twice daily. Hemoglobin A1c obtained today we will follow with results. Patient is being followed by magnetic tester, Dr. Arshad for foot and nail care. He has a pending ophthalmology appointment next week. Continue to encourage routine blood glucose monitoring as the patient was previously resistant before. No reported episodes of hypoglycemia. Given the patient's advanced age and chronic comorbidities of goal hemoglobin A1c is 7 to 8%. We will follow-up regarding hemoglobin A1c result. 2. Benign prostate hypertrophy. Patient has had stabilization of his LUTS as symptoms since initiation of Proscar 5 mg daily in addition of tamsulosin 0.8 mg daily. The patient does not have an interest in intervention outside of medical management and after discussion with PCP potential next step would be a urologic neurologist with potential recommendations of surgical intervention which both the patient and spouse are opposed to. Normalized feelings regarding urinary frequency. Some frequency may be due to underlying diabetes mellitus. Continue to encourage double voiding. Continue to monitor for symptom management. 3. Peripheral neuropathy in the setting of diabetes mellitus type 2. Stable. Continue gabapentin 200 mg nightly at bedtime. Continue to be followed by podiatry for foot and nail care. 4. Dementia. No recent falls. Chronic. Progressive. On no disease modifying agents. The patient is showering more routinely at least once weekly and r ecommended routine mouthwash for gum health.Diversion to routine hygiene due to dementia is not unexpected.Given the patient's advanced age and chronic comorbidities a gradual decline is expected. Total time spent 60 minutes with greater than 50% of this spent in counseling and coordination of care with patient and spouse/DPOA; review of pain and symptom management and anticipatory guidance. Disclaimer: The chart note was formulated using voice recognition technology and unfortunately sound alike errors may occur.
== END 2020-06-25 14:41 | disposition home or self-care (01) ==
LOC: PC 14:40
PROVIDERS: ATTEND Nurse Practitioner Family
DX: Z51.5 Encounter for palliative care (principal); N40.1 Benign prostatic hyperplasia with lower urinary tract symptoms; R35.0 Frequency of micturition; E11.40 Type 2 diabetes mellitus with diabetic neuropathy, unspecified; F03.90 Unspecified dementia, unspecified severity, without behavioral disturbance, psychotic disturbance, mood disturbance, and anxiety; H91.90 Unspecified hearing loss, unspecified ear; H54.7 Unspecified visual loss; K59.00 Constipation, unspecified; Z74.09 Other reduced mobility; G89.29 Other chronic pain; M54.9 Dorsalgia, unspecified; Z66 Do not resuscitate; Z91.81 History of falling; Z79.4 Long term (current) use of insulin; Z79.899 Other long term (current) drug therapy
CPT/HCPCS: 99350

== ENCOUNTER 2020-06-25 15:46 | Outpatient (CLI) | payer MEDICARE, OTHER ==
[2020-06-25 20:01] LABS: ESTIMATED AVERAGE GLUCOSE 166 mg/dL (70-100); HEMOGLOBIN A1c% 7.4 % (4.27-6.07)
== END 2020-06-25 15:47 | disposition home or self-care (01) ==
LOC: LAB.R 15:46
PROVIDERS: ATTEND Nurse Practitioner Family
DX: E11.9 Type 2 diabetes mellitus without complications (principal)
CPT/HCPCS: 83036

== ENCOUNTER 2020-08-07 14:35 | Outpatient (CLI) | payer MEDICARE, OTHER ==
--- NOTE | 2020-08-07 17:53 | CONSULTATION NOTE ---
Palliative Care Follow Up - Referral Referring Provider: Dr. Mroro Nunez Time of Visit: [id number] Referral setting: Home Referral Reason: Dementia/Neuropathy/Diabetes Mellitus - Information Sources Records reviewed: Previous records reviewed History/Review of Systems obtained from: Patient, Family (spouse/AMANDA, Jason) Exam limitations: Clinical condition (cognitive impairment due to dementia) - History of Present Illness Update Brief HPI Update: This is a 79-year-old gentleman who was seen in follow-up today for peripheral bowel movement diabetes mellitus type 2 and dementia within his home with his , Jason present. The patient previously was not allowing his referred with his blood glucose monitoring but Jordan sent weeks there has been a shift and he continues to allow once daily checks unless both parties forget. His blood glucose level has been averaging about 245. There have not been in any reported lows. Typically his blood glucose level is around 100 if he has not consumed any dessert or he has not eaten. Last hemoglobin A1c on 06/25/2020 was 7.4%. He is being followed by podiatry. He continues to report control with lower extremity neuropathy with the use of gabapentin. Denies any need for dose increase. He continues to sleep long lengths of time during the day. He will typically get up about 2 PM in the afternoon. His is noticing that he had been making more mistakes with his medications such as double dosing medication or confusing the insulin with the Accu-Cheks. In recent weeks the has regular work forms or control of med management and there have not been any mistakes. She lays out the medications for the day of for him to take and prepares the insulin which she assist with this administration. He continues to be reluctant to allow for bathing. He showered before his [id number] came into town. However, it is been approximately 4 weeks since he has showered and cannot relate why he is reluctant to perform this task as he denies any fear. Patient is seen in the living room sitting up in his recliner chair, groomed, no evidence of acute distress. Past Medical History: Patient has a past medical history of hypertension, hyperlipidemia, coronary artery disease, severe sleep apnea diagnosed 2002 with CPAP use, dementia, diabetes mellitus type 2, BPH, chronic sinusitis, claustrophobia, osteoarthritis, chronic back pain, history of CABG, pulmonary embolism in October 2019 (on Coumadin 10/2019 to 05/2020). Social History - Living Situation Living arrangement: At home Living Situation: With spouse/s.o. Support System: Patient and spouse have been for approximately 25 years. They have no children together. The patient has 3 children from his first marriage, but they have been estranged for many years and do not communicate. The patient grew up in [place], [place]. They relocated to [facility] in 2010. The patient's , Jason had her sister visit for 3 weeks and it was an enjoyable time had by all. Jason has contacted 22 listed individuals on the Private Caregiver list from the [facility] without any call backs for future use. Medications/Allergies - Medications Home Medications: Ambulatory Orders Medication Instructions Recorded Confirmed Atorvastatin Calcium 20 mg PO DAILY 03/04/16 01/26/20 Losartan Potassium 100 mg PO DAILY 03/04/16 01/26/20 Omeprazole 20 mg PO DAILY 03/04/16 01/26/20 carvediloL [Carvedilol] 3.125 mg PO BID 03/04/16 01/26/20 Magnesium Oxide [Mag Ox] 400 mg PO DAILYWM 11/06/19 01/26/20 Tamsulosin HCl [Flomax] 0.8 mg PO DAILY 11/06/19 01/26/20 hydroCHLOROthiazide 12.5 mg PO DAILY 11/06/19 01/26/20 [Hydrochlorothiazide] Hydrocodone/Acetaminophen [[place] 3 tab PO BID PRN 01/26/20 01/26/20 5-325 Tablet] polyethylene glycoL 3350 [Miralax] 17 g PO PRN PRN 01/26/20 01/26/20 Finasteride [Proscar] 5 mg PO DAILY 03/10/20 03/10/20 Gabapentin [Neurontin] 200 mg PO QPM 03/10/20 Insulin Aspart Prot/Insuln Asp 24 units SQ BID 05/29/20 05/29/20 [Insulin Aspart Prot ([id number])] - Allergies Allergies/Adverse Reactions: Allergies Allergy/AdvReac Type Severity Reaction Status Date / Time atenolol AdvReac Mild Nausea Verified 06/26/20 15:52 oxycodone AdvReac Unknown Verified 06/26/20 15:52 Review of Systems - Constitutional Constitutional: reports: Other (No recent weight loss noted by patient or .). denies: Fatigue (sleeps until 2pm most days but does not feel drowsy or unrested), Fever - Eyes Eyes: reports: Corrective lenses - Ears, Nose & Throat Ears, Nose & Throat: reports: Hearing loss. denies: Hearing aids - Cardiovascular Cardiovascular: denies: Chest pain - Respiratory Respiratory: denies: Cough, Wheezing - Gastrointestinal Gastrointestinal: reports: Constipation (controlled with miralax when needed), Other (Fair appetite). denies: Abdominal pain, Vomiting - Genitourinary Genitourinary: reports: Nocturia. denies: Dysuria - Musculoskeletal Musculoskeletal: reports: Back pain, Stiffness, Joint pain (right knee most specifically that is controlledwith hydrocodone/acetaminophen), Assistive d evices, Transfer issues, Other - Integumentary Integumentary: reports: Dryness - Neurological Neurological: reports: General weakness, Numbness (BLE controlled, see HPI), Memory problems - Psychiatric Psychiatric: denies: Depression - Endocrine Endocrine: reports: Diabetes type 2 (HgA1C 7.4% on 06/25/2020) - Hematologic/Lymphatic Hematologic/Lymph: reports: Other (History of PE 10/2019, coumadin has been discontinued by PCP). denies: Recurrent infections - All Other Systems All Other Systems: reports: Reviewed and negative (Review of systems supplemented by patient's , Jason.) Physical Exam - Vital Signs Temperature: 36.2 C Pulse Rate: 65 O2 Saturation: 97 (on RA) Blood Pressure: 140/71 - Physical Exam General Appearance: positive: No acute distress, Alert, Other (appears slightly older than his stated age) Eyes Bilateral: positive: Normal inspection ENT: positive: No signs of dehydration Neck: positive: Trachea midline Cardiovascular: positive: Regular rate & rhythm, Systolic murmur Respiratory: positive: No respiratory distress, Breath sounds nml Abdomen: positive: Non-tender, Soft, Nml bowel sounds, Obese. negative: Guarding Skin: positive: Dryness (generalized) Extremities: positive: No pedal edema Neurologic/Psychiatric: positive: Oriented x3 (STM impairment), Mood/affect nml Palliative Care - POLST Patient has POLST: Yes POLST Status: DNR, Selective Treatment Pain: Comment (Pain controlled with hydrocodone/acetaminophen. Pain is at acceptable level if rated 4/10 or lower per patient.) Performance Status: Patient is ambulatory with a cane or walker. History of falls. Resistant to bathing. Increase oversight required for medication management. Mainly continent of urine. Continent of bowel. - Palliative Care Discussion: On last evaluation the patient's NovoLog 70/30 mix was increased to 24 units twice daily and his last hemoglobin A1c was 7.4%. He has not had any extreme highs or lows and given difficulty for both he and his for juggling all his medications and a small window of time when they're both awake and alert will reduce the frequency of glucose checks to every other day for monitoring. The patient is demonstrating increased advancement of his underlying dementia requiring oversight of his medications by his and continued resistance for routine bathing. Patient is unable to verbalize his reluctance for bathing and discussed today the importance for personal hygiene And presently the patient has agreed to bathe every other week. The patient's , Jason, is becoming more overwhelmed with oversight that is needed for the patient who cannot be left alone and not having a reliable friend or caregiver that could be present and be instructional support assistant when there is a need. The goal is not to have the patient transition to a memory care unit in the future to remain within his home. This is multifactorial but finances are also a driving force for this decision even as the patient's dementia progresses as well as emotional. Impression and Recommendations - Palliative Care Impression: This is a 79-year-old gentleman with dementia, peripheral neuropathy and diabetes mellitus type 2. He has tolerated the increase of his NovoLog 70/30 mix to 24 units twice daily and last hemoglobin A1c was 7.4%. Due to the burden of checking blood glucose levels on a daily basis we'll decrease the frequency to every other day. Patient is demonstrating progression of his dementia with his inability to manage his medications independently or without oversight as well as his continued resistance to personal hygiene. Empathetic and supportive listening provided to the patient's spouse. Palliative care will continue to provide care coordination, symptom management and anticipatory guidance. Recommendations/Counseling Done: 1. Diabetes mellitus type 2. Last hemoglobin A1c 7.4% on 06/25/2020. Continue NovoLog 70/30 mix at 24 units twice daily. No reported episodes of hypo or hyperglycemia per the spouse's report. Patient is being followed by mainframe systems administrator, Dr. Arshad for foot and nail care. He has also had an ophthalmology appointment this year. Decrease blood glucose checks to every other day. Given the patient's advanced age and chronic comorbidities hemoglobin A1c of 7 to 8% is goal. Continue to monitor and adjust insulin regimen as needed. 2. Peripheral neuropathy in the setting of diabetes mellitus type 2. Stable. Continue gabapentin 200 mg nightly at bedtime. Continue to be followed by podemily ramon for foot and nail care. 3. Caregiver burden. Patient's spouse is demonstrating signs and symptoms of increasing caregiver burden as the patient cannot be left alone and she is providing oversight for all the patient's medications and there is no local family to provide assistance. Empathetic listening provided to the patient's spouse and normalization of her feelings. I offered supporting presence. [place] to see if a contract may be built for utilization of a caregiver if there were extremity waiting circumstances and the spouse needed to leave the home and that way the patient would not be left unattended. Provided contact information for caregiving agencies. 4. Dementia without behavioral disturbances. Chronic. Progressive. On no disease modifying agents. Encourage the patient to agree to shower every other week for personal hygiene. Demonstrating progression of disease with increased oversight with medication assistance and management. We reviewed with the patient's spouse that aversion to routine personal hygiene due to dementia is not unexpected. Given the patient's advanced age and chronic comorbidities a gradual decline is expected. Total time spent 50 minutes with greater than 50% of the spent in counseling and coordination of care with the patient and spouse/DPOA; empathetic listening; exploration of caregiving options; review of symptom management and anticipatory guidance. Disclaimer: The chart note was formulated using voice recognition technology and unfortunately sound alike errors may occur.
== END 2020-08-07 14:36 | disposition home or self-care (01) ==
LOC: PC 14:35
PROVIDERS: ATTEND Nurse Practitioner Family
DX: Z51.5 Encounter for palliative care (principal); E11.42 Type 2 diabetes mellitus with diabetic polyneuropathy; F03.90 Unspecified dementia, unspecified severity, without behavioral disturbance, psychotic disturbance, mood disturbance, and anxiety; Z79.4 Long term (current) use of insulin; Z66 Do not resuscitate
CPT/HCPCS: 99349

== ENCOUNTER 2020-09-18 14:40 | Outpatient (CLI) | payer MEDICARE, OTHER ==
--- NOTE | 2020-09-18 16:08 | CONSULTATION NOTE ---
Palliative Care Follow Up - Referral Referring Provider: Dr. Morro Nunez Time of Visit: [id number] Referral setting: Home Referral Reason: Dementia/BPH/Diabetes Mellitus - Information Sources Records reviewed: Previous records reviewed History/Review of Systems obtained from: Patient, Family (spouse/AMANDA, Jason) Exam limitations: Clinical condition (cognitive impairment due to dementia) - History of Present Illness Update Brief HPI Update: This is a 79-year-old gentleman who was seen in follow-up today for dementia, diabetes mellitus and BPH within his home with his , Jason present. The patient has been allowing daily blood glucose monitoring with the assistance of his spouse. Blood glucose levels have been as follows 187, 289, 272, 284, 251, 138, 230, 225, 193, 253, 234, 231, 246, 250, 219. The patient is not having any noted lows. He is not having any evidence of diaphoresis or hypoglycemic events prior to bed that he was having previously. He is presently receiving Novolog 70/30 insulin 24 units twice daily via subcutaneous injection. His appetite seems to come and go however, in recent weeks has been improved per 's report. Last hemoglobin A1c on 06/25/2020 was 7.4%. He is being followed by podiatry with next office visit next week. Previously, the patient was spending a significant amount of time in the bathroom with voiding issues and was complaining to his when exiting the bathroom. He was initially started on tamsulosin during his last hospitalization in October 2019 and is on 0.8 mg daily. Given his difficulty starting and stopping his urinary stream he was initiated on Proscar 5 mg daily. He has noted improvement overall recently and denies dysuria. Overall, the patient has been doing quite well by both his and his 's report. He has had minimal symptom burden in recent weeks and some of this may be attributed to the new caregiver within the home that has started in the last 2 to 3 weeks and has been a good fit for the household. This is relieved stress for the patient significant other and has been a source of enjoyment for the patient himself. The patient is seen at the kitchen table in his recliner, groomed, no evidence of acute distress. Past Medical History: Patient has a past medical history of hypertension, hyperlipidemia, coronary artery disease, severe sleep apnea diagnosed 2002 with CPAP use, dementia, diabetes mellitus type 2, BPH, chronic sinusitis, claustrophobia, osteoarthritis, chronic back pain, history of CABG, pulmonary embolism in October 2019 (on Coumadin 10/2019 to 05/2020). Social History - Living Situation Living arrangement: At home Living Situation: With spouse/s.o. Support System: Patient and spouse have been for approximately 25 years. They have no children together. The patient has 3 children from his first marriage, but they have been estranged for many years and do not communicate. The patient grew up in [place], [place]. They relocated to [facility] in 2010. The patient spouse has hired a new caregiver, Gela and that she and another caregiver will come 2 times per week for 4 hours at a time. Gela is quite adamant that she will be able to build rapport with the patient to ensure bathing which has not happened consistently. Geal has been a very good fit for the household and has relieved some of the caregiver burden off of the patient's spouse. Medications/Allergies - Medications Home Medications: Ambulatory Orders Medication Instructions Recorded Confirmed Atorvastatin Calcium 20 mg PO DAILY 03/04/16 01/26/20 Losartan Potassium 100 mg PO DAILY 03/04/16 01/26/20 Omeprazole 20 mg PO DAILY 03/04/16 01/26/20 carvediloL [Carvedilol] 3.125 mg PO BID 03/04/16 01/26/20 Magnesium Oxide [Mag Ox] 400 mg PO DAILYWM 11/06/19 01/26/20 Tamsulosin HCl [Flomax] 0.8 mg PO DAILY 11/06/19 01/26/20 hydroCHLOROthiazide 12.5 mg PO DAILY 11/06/19 01/26/20 [Hydrochlorothiazide] Hydrocodone/Acetaminophen [[place] 3 tab PO BID PRN 01/26/20 01/26/20 5-325 Tablet] polyethylene glycoL 3350 [Miralax] 17 g PO PRN PRN 01/26/20 01/26/20 Finasteride [Proscar] 5 mg PO DAILY 03/10/20 03/10/20 Gabapentin [Neurontin] 200 mg PO QPM 03/10/20 Insulin Aspart Prot/Insuln Asp 26 units SQ BID 05/29/20 05/29/20 [Insulin Aspart Prot ([id number])] - Allergies Allergies/Adverse Reactions: Allergies Allergy/AdvReac Type Severity Reaction Status Date / Time atenolol AdvReac Mild Nausea Verified 06/26/20 15:52 oxycodone AdvReac Unknown Verified 06/26/20 15:52 Review of Systems - Constitutional Constitutional: reports: Other (No recent weight loss noted by patient or .). denies: Fatigue (sleeps until 2pm most days but does not feel drowsy or unrested), Fever, Poor appetite - Eyes Eyes: reports: Corrective lenses - Ears, Nose & Throat Ears, Nose & Throat: reports: Hearing loss. denies: Hearing aids - Cardiovascular Cardiovascular: denies: Chest pain - Respiratory Respiratory: denies: Cough - Gastrointestinal Gastrointestinal: reports: Constipation (controlled with miralax when needed), Other (Improved recently). denies: Change in bowel habits, Vomiting - Genitourinary Genitourinary: denies: Dysuria, Urgency - Musculoskeletal Musculoskeletal: reports: Back pain, Stiffness, Joint pain (right knee most specifically that is controlledwith hydrocodone/acetaminophen), Assistive devices, Transfer issues, Other - Integumentary Integumentary: reports: Dryness, Other (toenails look improved with routine podiatry care) - Neurological Neurological: reports: General weakness, Memory problems. denies: Numbness (BLE controlled with gabapentin) - Psychiatric Psychiatric: denies: Depression - Endocrine Endocrine: reports: Diabetes type 2 (HgA1C 7.4% on 06/25/2020, see HPI for recent blood glucose readings) - Hematologic/Lymphatic Hematologic/Lymph: reports: Other (History of PE 10/2019, coumadin has been discontinued by PCP). denies: Recurrent infections - All Other Systems All Other Systems: reports: Reviewed and negative (Review of systems supplemented by patient's , Jason.) Physical Exam - Vital Signs Temperature: 36.3 C Pulse Rate: 65 O2 Saturation: 97 (on RA) Blood Pressure: 138/80 (left arm) - Physical Exam General Appearance: positive: No acute distress, Alert, Other (appears slightly older than his stated age) Eyes Bilateral: positive: Normal inspection ENT: positive: No signs of dehydration Neck: positive: Trachea midline Cardiovascular: positive: Regular rate & rhythm, Systolic murmur Respiratory: positive: No respiratory distress, Breath sounds nml. negative: Rales Abdomen: positive: Non-tender, Soft, Nml bowel sounds, Obese Skin: positive: Dryness (generalized) Extremities: positive: No pedal edema Neurologic/Psychiatric: positive: Oriented x3 (STM impairment), Mood/affect nml, Other (He is in very good spirits) Comments/Other: Blood glucose level 168 Palliative Care - POLST Patient has POLST: Yes POLST Status: DNR, Selective Treatment Pain: Comment (Pain controlled with hydrocodone/acetaminophen prescribed by PCP. Has not had any acute flares of pain for spouse or patient report.) Feelings of wellbeing/Perceived Quality of Life: Good Sleep: Sleeps well Constipation: Managed - Palliative Care Discussion: The patient and his spouse/DPOA present as well for all lifting of their movements since the addition of the private caregiver who is coming 2 times per week as they have developed a good rapport and she has assisted in caregiving duties and relieving some of this burden off of the patient's spouse/DPOA, Jason. The increased positivity in the home environment is also reflected that the patient's symptoms are well controlled at the present time including his appetite, pain, neuropathy, and BPH symptoms. He has a longstanding history of diabetes mellitus type 2 and is on NovoLog 70/30 mix and is on 24 units twice daily with last hemoglobin A1c 7.4%. However, given the patient's trend of his blood glucose levels being above 200 would recommend increasing his NovoLog 70/30 mix to 26 units twice daily and continue to monitor with the goal of below 200 for his blood glucose levels before meals with understanding verbalized with the patient's spouse. Impression and Recommendations - Palliative Care Impression: This is a 79-year-old gentleman with dementia, peripheral neuropathy, BPH and diabetes mellitus type 2. We will increase his NovoLog 70/30 mix to 26 units twice daily with last hemoglobin A1c 7.4%. Patient has had overall improvement of his generalized mood as well as reduction in caregiving burden for the patient's spouse/DPOA with the addition of a private caregiver within the home. His BPH symptoms are also well controlled at the present time. The patient's spouse is now assisting with managing the medications. Supportive listening provided. Palliative care will continue to provide care coordination, symptom management and anticipatory guidance. Recommendations/Counseling Done: 1. Diabetes mellitus type 2. Last hemoglobin A1c 7.4% on 06/25/2020. Increase NovoLog 70/30 mix to 26 units twice daily. No reported episodes of hypo or hyperglycemia per spouse's report. Given the rising trend of the patient's blood glucose levels in the mid 200s will increase NovoLog Mix 70/30 to 26 units twice daily. Patient to be continued to be followed by dock supervisor, Dr. Arshad for foot and nail care. In 2020 he has been followed by ophthalmology. Given the patient's advanced age and chronic comorbidities of goal hemoglobin A1c of 7 to 8% is appropriate. Continue to monitor and adjust insulin regimen as needed. 2.Benign prostate hypertrophy. Patient has had improvement of his LUTS symptoms. We will continue Proscar 5 mg daily with tamsulosin 0.8 mg daily. 90-day Rx of Proscar sent to [facility] at patient's spouse's request. Continue to encourage double voiding. Continue to monitor for symptom management. 3. Peripheral neuropathy in the setting of diabetes mellitus type 2. Symptoms remain stable. Continue gabapentin 200 mg grams at bedtime. We will continue to monitor patient's response and adjust accordingly. Continue to encourage foot wear within the home for protection. 4. Dementia. Chronic. Progressive. No recent falls. On no disease modifying agents. Given the patient's advanced age and chronic comorbidities a gradual decline expected. The patient's has obtained additional caregiving support within the home and is overseeing his medication management with cueing. Total time spent 45 minutes with greater than 50% of this spent in counseling and coordination of care With patient and spouse/DPOA; review of medication management and blood glucose log; examination of patient;, review of symptom management and anticipatory guidance. Disclaimer: The chart note was formulated using voice recognition technology and unfortunately sound alike errors may occur.
== END 2020-09-18 14:41 | disposition home or self-care (01) ==
LOC: PC 14:40
PROVIDERS: ATTEND Nurse Practitioner Family
DX: Z51.5 Encounter for palliative care (principal); E11.42 Type 2 diabetes mellitus with diabetic polyneuropathy; N40.1 Benign prostatic hyperplasia with lower urinary tract symptoms; F03.90 Unspecified dementia, unspecified severity, without behavioral disturbance, psychotic disturbance, mood disturbance, and anxiety; Z79.4 Long term (current) use of insulin; Z66 Do not resuscitate
CPT/HCPCS: 99349

== ENCOUNTER 2020-10-30 15:00 | Outpatient (CLI) | payer MEDICARE, OTHER ==
--- NOTE | 2020-10-30 16:02 | CONSULTATION NOTE ---
Palliative Care Follow Up - Referral Referring Provider: Dr. Morro Nunez Time of Visit: [id number] Referral setting: Home Referral Reason: Dementia/BPH/Diabetes Mellitus - Information Sources Records reviewed: Previous records reviewed History/Review of Systems obtained from: Patient, Family (spouse, Jason) Exam limitations: Clinical condition (cognitive impairment due to dementia) - History of Present Illness Update Brief HPI Update: This is a 71-year-old gentleman who was seen in follow-up today for dementia, d iabetes mellitus type 2 and BPH within his home with his , Jason present. On last evaluation the patient's insulin 70/30 was increased to 26 units twice a day with a goal blood glucose level less than 200. After advising to take blood glucose level before eating, the patient has had improved blood glucose levels. Spouse is taking blood glucose levels every other day that are averaging over the last month 152.8. This is significantly improved since dose adjustment. Last hemoglobin A1c on 06/25/2020 was 7.4%. The patient is switching podiatrists and is to be seen by his new network operations specialist on 11/08 for routine diabetic foot care and nail trimming. The patient is no longer spending a significant amount of time in the bathroom with voiding issues. He does intermittently have complaints but it is few and far between per 's report. He was started on tamsulosin during his last hospitalization in October 2019 and is on 0.8 mg daily. He is also on Proscar 5 mg daily and doing well with this. No reports of dysuria. Appetite remains stable. Clothes are fitting well. Patient has a more optimistic and happy demeanor than he has recently. He continues to take hydrocodone/acetaminophen approximately 5-6 times per day for arthritis and is being managed by his PCP. He is also continuing to sleep late into the afternoon and is not troubled by this. He denies any depressive symptoms. Patient is seen in his left recliner, well groomed, no evidence of acute distress. Past Medical History: Patient has a past medical history of hypertension, hyperlipidemia, coronary artery disease, severe sleep apnea diagnosed 2002 with CPAP use, dementia, diabetes mellitus type 2, BPH, chronic sinusitis, claustrophobia, osteoarthritis, chronic back pain, history of CABG, pulmonary embolism in October 2019 (on Coumadin 10/2019 to 05/2020). Social History - Living Situation Living arrangement: At home Living Situation: With spouse/s.o. Support System: Patient and spouse have been for approximately 25 years. They have no children together. The patient has 3 children from his first marriage, but they have been estranged for many years and do not communicate. The patient grew up in [place], [place]. They relocated to [facility] in 2010. Things continue to go well with caregiver, Gela who comes 2 days/week for 4 hours at a time. The patient has been getting bathed and shave once a week. Gela has been a very good fit for all parties in the household. Medications/Allergies - Medications Home Medications: Ambulatory Orders Medication Instructions Recorded Confirmed Atorvastatin Calcium 20 mg PO DAILY 03/04/16 01/26/20 Losartan Potassium 100 mg PO DAILY 03/04/16 01/26/20 Omeprazole 20 mg PO DAILY 03/04/16 01/26/20 carvediloL [Carvedilol] 3.125 mg PO BID 03/04/16 01/26/20 Magnesium Oxide [Mag Ox] 400 mg PO DAILYWM 11/06/19 01/26/20 Tamsulosin HCl [Flomax] 0.8 mg PO DAILY 11/06/19 01/26/20 hydroCHLOROthiazide 12.5 mg PO DAILY 11/06/19 01/26/20 [Hydrochlorothiazide] Hydrocodone/Acetaminophen [[place] 3 tab PO BID PRN 01/26/20 01/26/20 5-325 Tablet] polyethylene glycoL 3350 [Miralax] 17 g PO PRN PRN 01/26/20 01/26/20 Finasteride [Proscar] 5 mg PO DAILY 03/10/20 03/10/20 Gabapentin [Neurontin] 200 mg PO QPM 03/10/20 Insulin Aspart Prot/Insuln Asp 26 units SQ BID 05/29/20 05/29/20 [Insulin Aspart Prot ([id number])] - Allergies Allergies/Adverse Reactions: Allergies Allergy/AdvReac Type Severity Reaction Status Date / Time atenolol AdvReac Mild Nausea Verified 06/26/20 15:52 oxycodone AdvReac Unknown Verified 06/26/20 15:52 Review of Systems - Constitutional Constitutional: reports: Other (No recent weight loss noted by patient or .). denies: Fatigue (sleeps until 2pm most days but does not feel drowsy or unrested), Fever - Eyes Eyes: reports: Corrective lenses - Ears, Nose & Throat Ears, Nose & Throat: reports: Hearing loss. denies: Hearing aids - Cardiovascular Cardiovascular: reports: Edema (intermittent and improved with elevation of BLE 1-2 times per day). denies: Chest pain - Respiratory Respiratory: denies: Cough, Wheezing - Gastrointestinal Gastrointestinal: reports: Constipation (controlled with miralax when needed), Good appetite. denies: Abdominal pain, Vomiting - Genitourinary Genitourinary: reports: Other (BPH). denies: Dysuria, Urgency - Musculoskeletal Musculoskeletal: reports: Stiffness, Joint pain (right knee most specifically that is controlledwith hydrocodone/acetaminophen), Assistive devices, Transfer issues, Other - Integumentary Integumentary: reports: Dryness (improved with routine showering once a week) - Neurological Neurological: reports: General weakness, Memory problems. denies: Numbness (BLE controlled with gabapentin) - Psychiatric Psychiatric: denies: Depression - Endocrine Endocrine: reports: Diabetes type 2 (HgA1C 7.4% on 06/25/2020, see HPI for recent blood glucose readings) - Hematologic/Lymphatic Hematologic/Lymph: reports: Other (History of PE 10/2019, coumadin has been discontinued by PCP). denies: Recurrent infections - All Other Systems All Other Systems: reports: Reviewed and negative (Review of systems supplemented by patient's , Jason.) Physical Exam - Vital Signs Temperature: 36.5 C Pulse Rate: 67 O2 Saturation: 97 (on RA) Blood Pressure: 144/68 (right arm) - Physical Exam General Appearance: positive: No acute distress, Alert, Other (appears slightly older than his stated age) Eyes Bilateral: positive: Normal inspection ENT: positive: No signs of dehydration Neck: positive: Trachea midline Cardiovascular: positive: Regular rate & rhythm, Systolic murmur Respiratory: positive: No respiratory distress, Breath sounds nml Abdomen: positive: Non-tender, Soft, Nml bowel sounds, Obese Skin: negative: Dryness (resolved with routine bathing) Extremities: positive: No pedal edema Neurologic/Psychiatric: positive: Oriented x3 (STM impairment), Mood/affect nml, Other (He is in very good spirits) Comments/Other: FS 138 today Palliative Care - POLST Patient has POLST: Yes POLST Status: DNR, Selective Treatment Pain: Pain unchanged (controlled with hydrocodone/acetaminophen prescribed by PCP. No recent acute flares per and patient report.) Feelings of wellbeing/Perceived Quality of Life: Good Sleep: Sleeps well Constipation: Managed - Palliative Care Discussion: The patient has a longstanding history of diabetes mellitus type 2 and is on Novolin 70/30 mix and has tolerated dose adjustment of 26 units twice daily and last hemoglobin A1c 7.4%. The patient's blood glucose levels have now averaged below 200 and does not require any further adjustment at the present time. Would benefit from obtainment of hemoglobin A1c at next visit. Patient appears to be quite content and is enjoying his life at home. Patient spouse also appears to be more relaxed with new caregiver that has been present. Spouse recognizes that presently coasting but is happy to continue along on this present path. She does recognize with dementia that this is a progressive course and at a certain point there will be a potential event resulting in a decline. Supportive and empathetic listening provided. Impression and Recommendations - Palliative Care Impression: This is a 79-year-old gentleman with dementia, BPH, and diabetes mellitus type 2. Has tolerated dose adjustment of Novolin 70/30 mix to 26 units twice daily and no need to adjust at the present time with last hemoglobin A1c 7.4%. Patient continues to have an uplifting mood and specifically related to 's reduction in caregiving burden with addition of her private caregiver. Palliative care will continue to provide care coordination, symptom management and anticipatory guidance. Recommendations/Counseling Done: 1. Diabetes mellitus type 2. Last hemoglobin A1c is 7.4% on 06/25/2020. Continue Novolin 70/30 mix 26 units twice daily. May obtain blood glucose level every other day given the difficulty for the patient spouse to always obtain. No reported episodes of hypo or hyperglycemia. Goal is to have blood glucose levels less than 200 and has been doing well with this. Follow-up with podiatry for diabetic foot care. He has been seen by ophthalmology in 2020. Given the patient's advanced age and chronic comorbidities and a goal hemoglobin A1c of 7 to 8% is appropriate. Obtain hemoglobin A1c at next home visit. Continue to mo nitor and adjust insulin regimen as needed. 2. Benign prostate hypertrophy. Patient has had improvement of his LUTS symptoms. We will continue Proscar 5 mg daily with tamsulosin 0.8 mg daily. No need for prescription refills at this time. Continue to encourage voiding every 2 hours while awake. Continue to encourage double voiding. Continue to monitor for symptom management. 3. Dementia. Chronic. Progressive. No recent falls. No disease modifying agents. Given the patient's advanced age and chronic comorbidities a gradual decline is expected. Presently has a private caregiver in the home twice a week. Patient spouse is overseeing medication management with assistance for blood glucose monitoring. Total time spent 35 minutes with greater than 50% of the spent in counseling and coordination of care with the patient and spouse/DPOA; review of medication management and blood glucose levels; examination of patient; review of symptom management and anticipatory guidance. Disclaimer: The chart note was formulated using voice recognition technology and unfortunately sound alike errors may occur.
== END 2020-10-30 15:01 | disposition home or self-care (01) ==
LOC: PC 15:00
PROVIDERS: ATTEND Nurse Practitioner Family
DX: Z51.5 Encounter for palliative care (principal); E11.9 Type 2 diabetes mellitus without complications; N40.0 Benign prostatic hyperplasia without lower urinary tract symptoms; F03.90 Unspecified dementia, unspecified severity, without behavioral disturbance, psychotic disturbance, mood disturbance, and anxiety; Z79.4 Long term (current) use of insulin; Z66 Do not resuscitate
CPT/HCPCS: 99348

== ENCOUNTER 2020-12-24 14:35 | Outpatient (CLI) | payer MEDICARE, OTHER ==
--- NOTE | 2020-12-24 15:52 | CONSULTATION NOTE ---
Palliative Care Follow Up - Referral Referring Provider: Dr. Morro Nunez Time of Visit: [id number] Referral setting: Home Referral Reason: Dementia/Diabetes Mellitus/HLD - Information Sources Records reviewed: Previous records reviewed History/Review of Systems obtained from: Patient, Family (spouse, Jason), Caregiver (Gela) Exam limitations: Clinical condition (cognitive impairment due to dementia) - History of Present Illness Update Brief HPI Update: This is a 80-year-old gentleman who was seen in follow-up today for dementia, diabetes mellitus type 2 and hyperlipidemia within his home with his , Jason and caregiver, Gela present. Provider wore N95 mask. Patient is presently on 70/30 insulin 26 units twice a day. Blood glucose levels have been on average less than 200. Blood glucose this month thus far have been as follows 166, 130, 177, 166, 122, 210, 153, 183. Average blood glucose level for the month of November was 170. Last hemoglobin A1c on 06/25/2020 was 7.4%. The patient continues to have routine podiatry care due to his history of diabetes mellitus. He is having routine defecation and appetite has remained stable. Patient and spouse denying clothing fitting loosely. He continues to take hydrocodone/acetaminophen approximately 5-6 times per day for arthritis and is being managed by his PCP regarding this. He prefers to get up late in the afternoon and denies depressive symptoms. He had his influenza and Covid19 booster shot on Thursday. On Thursday, he reported some localized discomfort to the site of his Covid19 booster. It had some mild warmth reported by the spouse and she is locally massage the area and this has resulted in improvement. Patient presently denies any discomfort to the site and reported stiffness has improved. Today, he had a shower and shave which she does on Mondays. Patient is seen in his recliner, well-groomed with no evidence of acute dis tress. Past Medical History: Patient has a past medical history of hypertension, hyperlipidemia, coronary artery disease, severe sleep apnea diagnosed 2002 with CPAP use, dementia, diabetes mellitus type 2, BPH, chronic sinusitis, claustrophobia, osteoarthritis, chronic back pain, history of CABG, pulmonary embolism in October 2019 (on Coumadin 10/2019 to 05/2020). +COVID-19 vaccine and s/p booster 12/2020 Social History - Living Situation Living arrangement: At home Living Situation: With spouse/s.o. Medications/Allergies - Medications Home Medications: Ambulatory Orders Medication Instructions Recorded Confirmed Atorvastatin Calcium 20 mg PO DAILY 03/04/16 01/26/20 Losartan Potassium 100 mg PO DAILY 03/04/16 01/26/20 Omeprazole 20 mg PO DAILY 03/04/16 01/26/20 carvediloL [Carvedilol] 3.125 mg PO BID 03/04/16 01/26/20 Magnesium Oxide [Mag Ox] 400 mg PO DAILYWM 11/06/19 01/26/20 Tamsulosin HCl [Flomax] 0.8 mg PO DAILY 11/06/19 01/26/20 hydroCHLOROthiazide 12.5 mg PO DAILY 11/06/19 01/26/20 [Hydrochlorothiazide] Hydrocodone/Acetaminophen [[place] 3 tab PO BID PRN 01/26/20 01/26/20 5-325 Tablet] polyethylene glycoL 3350 [Miralax] 17 g PO PRN PRN 01/26/20 01/26/20 Finasteride [Proscar] 5 mg PO DAILY 03/10/20 03/10/20 Gabapentin [Neurontin] 200 mg PO QPM 03/10/20 Insulin Aspart Prot/Insuln Asp 26 units SQ BID 05/29/20 05/29/20 [Insulin Aspart Prot ([id number])] - Allergies Allergies/Adverse Reactions: Allergies Allergy/AdvReac Type Severity Reaction Status Date / Time atenolol AdvReac Mild Nausea Verified 06/26/20 15:52 oxycodone AdvReac Unknown Verified 06/26/20 15:52 Review of Systems - Constitutional Constitutional: reports: Other (No recent weight loss noted by patient or .). denies: Fatigue (sleeps until 2pm most days), Fever - Eyes Eyes: reports: Corrective lenses - Ears, Nose & Throat Ears, Nose & Throat: reports: Hearing loss. denies: Hearing aids - Cardiovascular Cardiovascular: reports: Edema (intermittent continue elevation of BLE 1-2 times per day). denies: Chest pain - Respiratory Respiratory: denies: Cough - Gastrointestinal Gastrointestinal: reports: Good appetite. denies: Abdominal pain, Constipation (controlled with miralax when needed), Vomiting - Genitourinary Genitourinary: reports: Other (BPH). denies: Dysuria - Musculoskeletal Musculoskeletal: reports: Stiffness, Joint pain (right knee most specifically th at is controlledwith hydrocodone/acetaminophen), Assistive devices, Transfer issues, Other - Integumentary Integumentary: reports: Other (right deltoid s/p COVID-19 with localized reaction) - Neurological Neurological: reports: General weakness, Memory problems. denies: Numbness (BLE controlled with gabapentin) - Psychiatric Psychiatric: denies: Depression - Endocrine Endocrine: reports: Diabetes type 2 (HgA1C 7.4% on 06/25/2020, see HPI for recent blood glucose readings) - Hematologic/Lymphatic Hematologic/Lymph: reports: Other (History of PE 10/2019, coumadin has been discontinued by PCP). denies: Recurrent infections - All Other Systems All Other Systems: reports: Reviewed and negative (Review of systems supplemented by patient's , Jason.) Physical Exam - Vital Signs Temperature: 36.1 C Pulse Rate: 65 O2 Saturation: 95 (on RA) Blood Pressure: 142/70 (right arm) - Physical Exam General Appearance: positive: No acute distress, Alert, Other (appears slightly older than his stated age, well groomed s/p shower) Eyes Bilateral: positive: Normal inspection ENT: positive: No signs of dehydration, Other (+dentures) Neck: positive: Trachea midline Cardiovascular: positive: Regular rate & rhythm, Systolic murmur Respiratory: positive: No respiratory distress, Breath sounds nml. negative: Rales Abdomen: positive: Non-tender, Soft, Nml bowel sounds, Obese Skin: positive: Other (Right deltoid with mild tenderness to deep palpation s/p COVID-19 booster with mild warmth--resolving) Extremities: positive: No pedal edema Neurologic/Psychiatric: positive: Oriented x3 (STM impairment), Mood/affect nml Palliative Care - POLST Patient has POLST: Yes POLST Status: DNR, Selective Treatment Pain: Pain unchanged (controlled with hydrocodone/acetaminophen prescribed by PCP.) Sleep: Sleeps well Constipation: Managed - Palliative Care Discussion: Patient has a longstanding history of diabetes mellitus type 2 and is on Novolin 70/30 mix and is on 26 units twice a day with last hemoglobin A1c 7.4%. Patient spouse is noticing that his blood glucose levels are creeping up per her report and will obtain hemoglobin A1c this visit to reevaluate if dose adjustment is necessary recognizing that wish to proceed cautiously with any dose adjustment to reduce the risk of hypoglycemia and fall. The patient continues to be in good spirits as he has support from his spouse and new caregiver, Gela. The patient is easily redirected by caregiver, Gela much to the spouses relief allowing him to have weekly bathing which was previously a source of contention between the couple. Results - Lab Results Lab and Imaging Results: 12/24/2020--labwork pending Impression and Recommendations - Palliative Care Impression: This is a 80-year-old gentleman with dementia, hyperlipidemia and diabetes mellitus type 2. No changes to medication regimen today and lab work obtained and will follow with results. Patient presently has plateaued with his functional and cognitive decline but spouse recognizes that given the underlying dementia is at risk for sequential sequelae. Palliative care to continue provide care coordination, symptom management and anticipatory guidance as it is a taxing and difficult effort for the patient to leave his home environment. Recommendations/Counseling Done: 1. Diabetes mellitus type 2. No episodes of hypo or hyperglycemia reported. Last hemoglobin A1c 7.4% on 06/25/2020. Continue Novolin 70/30 mix 26 units twice daily. Continue to obtain blood glucose level every other day. Continue routine foot care with podiatry. Seen by ophthalmology in 2020. Obtain hemoglobin A1c today and follow with results. Given the patient's advanced age and chronic comorbidities hemoglobin A1c of 7 to 8% is goal. 2. Hyperlipidemia. Continue atorvastatin 20 mg daily. Obtain CMP and lipid panel today and follow with results. 3. Hypertension. No cardiac awareness. Obtain CMP today and follow with results. Continue metoprolol, losartan, and HCTZ as prescribed by PCP. 4. Dementia. Chronic. Progressive. No recent falls. On no disease modifying agents. Given the patient's advanced age and chronic comorbidities a gradual Booker is expected. Has a caregiver coming to the home twice a week that has significantly reduced the spouses caregiver burden. Patient spouse is overseeing medical management with assistance for blood glucose monitoring. Total time spent 55 minutes with greater than 50% of the spent in counseling and coordination of care with the patient, spouse/DPOA and caregiver; obtainment of lab work; review of blood glucose log; examination of patient; review of symptom management and anticipatory guidance. Disclaimer: The chart note was formulated using voice recognition technology and unfortunately sound alike errors may occur.
== END 2020-12-24 14:36 | disposition home or self-care (01) ==
LOC: PC 14:35
PROVIDERS: ATTEND Nurse Practitioner Family
DX: Z51.5 Encounter for palliative care (principal); F03.90 Unspecified dementia, unspecified severity, without behavioral disturbance, psychotic disturbance, mood disturbance, and anxiety; E11.9 Type 2 diabetes mellitus without complications; Z79.4 Long term (current) use of insulin; E78.5 Hyperlipidemia, unspecified; I10 Essential (primary) hypertension; G47.30 Sleep apnea, unspecified; I25.10 Atherosclerotic heart disease of native coronary artery without angina pectoris; N40.0 Benign prostatic hyperplasia without lower urinary tract symptoms; M19.90 Unspecified osteoarthritis, unspecified site; M54.9 Dorsalgia, unspecified; G89.29 Other chronic pain; Z86.711 Personal history of pulmonary embolism; J32.9 Chronic sinusitis, unspecified; T50.B95A Adverse effect of other viral vaccines, initial encounter
CPT/HCPCS: 99349

== ENCOUNTER 2020-12-24 15:00 | Outpatient (CLI) | payer MEDICARE, OTHER ==
[2020-12-24 16:30] LABS: ALBUMIN 3.7 g/dL (3.2-5.5); ALBUMIN/GLOBULIN RATIO 1.1 (1.0-2.2); ALKALINE PHOSPHATASE 49 IU/L (42-121); ALT ALANINE AMINOTRANSFERASE 24 IU/L (10-60); AST ASPARTATE AMINOTRANSFERASE 17 IU/L (10-42); BILIRUBIN,TOTAL 0.5 mg/dL (0.2-1.0); BUN - BLOOD UREA NITROGEN 31 mg/dL (6-20); CALCIUM 9.1 mg/dL (8.5-10.3); CARBON DIOXIDE - CO2 27 mmol/L (21-32); CHLORIDE 103 mmol/L (101-111); CHOL/HDL RATIO 3.7 (<5.0); CHOLESTEROL 126 mg/dL; CREATININE 1.2 mg/dL (0.6-1.2); GFR - MDRD 58 (>89); GLUCOSE 186 mg/dL (70-100); HDL CHOLESTEROL 34 mg/dL; LDL CHOLESTEROL,CALCULATED 42 mg/dL; LDL/HDL RATIO 1.2 (<3.6); POTASSIUM 4.3 mmol/L (3.5-5.0); SODIUM 140 mmol/L (135-145); TOTAL PROTEIN 7.1 g/dL (6.7-8.2); TRIGLYCERIDES 252 mg/dL; VLDL CHOLESTEROL 50 mg/dL
[2020-12-24 20:25] LABS: ESTIMATED AVERAGE GLUCOSE 174 mg/dL (70-100); HEMOGLOBIN A1c% 7.7 % (4.27-6.07)
== END 2020-12-24 15:01 | disposition home or self-care (01) ==
LOC: LAB.R 15:00
PROVIDERS: ATTEND Nurse Practitioner Family
DX: I10 Essential (primary) hypertension (principal); E11.9 Type 2 diabetes mellitus without complications; E78.2 Mixed hyperlipidemia
CPT/HCPCS: 80053; 80061; 83036; 83721

== ENCOUNTER 2021-02-27 13:55 | Outpatient (CLI) | payer MEDICARE, OTHER ==
--- NOTE | 2021-02-27 16:00 | CONSULTATION NOTE ---
Palliative Care Follow Up - Referral Referring Provider: Dr. Morro Nunez Time of Visit: [id number] Referral setting: Home Referral Reason: Dementia/Chronic OA pain/Constipation - Information Sources Records reviewed: Previous records reviewed History/Review of Systems obtained from: Patient, Family (spouse, Jason), Caregiver (Gela) Exam limitations: Clinical condition (+Dementia) - History of Present Illness Update Brief HPI Update: This is a 80-year-old gentleman who was seen in follow-up today for dementia, advancing chronic osteoarthritic pain, and diabetes mellitus type 2 with his , Jason and caregiver Gela present. Provider wore N95 mask. Patient is presently on Novolin 70/30 mix of 27 units twice a day. His blood glucose has been averaging about 137 on average. He continues to have routine podiatry care due to his history of diabetes mellitus. Patient's spouse and caregiver is reporting increased pain. He is typically shuffling to and from the bathroom approximately every 2-3 hours and this is an approximately 15 to 20-minute ordeal that then leads to the patient having increased pain. He is on hydrocodone/acetaminophen 5 mg / 325 mg taking on average 6 to 9 tablets/day. The patient has been on hydrocodone/acetaminophen for at least over 20 years per the spouse's report. The increase to 9 tablets/day has increased over the last few weeks. Patient's spouse is looking to potentially trial a longer acting medication to make the patient more comfortable. She is also wondering if his pain is interfering with his sleep as he does not appear to be well rested during the day. Last Hemoglobin A1C 7.7% in December 2020. Patient's spouse and caregiver, Gela reports that the patient has had a voracious appetite. After he is done eating he wishes to have more and does not remember that he has just eaten. This is waxed and waned in the past. Can appreciate that the patient has had an increase in his weight. Past Medical History: Patient has a past medical history of hypertension, hyperlipidemia, coronary artery disease, severe sleep apnea diagnosed 2002 with CPAP use, dementia, diabetes mellitus type 2, BPH, chronic sinusitis, claustrophobia, osteoarthritis, chronic back pain, history of CABG, pulmonary embolism in October 2019 (on Coumadin 10/2019 to 05/2020). +COVID-19 vaccine and s/p booster 12/2020 Social History - Living Situation Living arrangement: At home Living Situation: With spouse/s.o. Support System: Patient and spouse have been for approximately 25 years. They have no children together. The patient has 3 children from his first marriage, but they have been estranged for many years and do not communicate. The patient grew up in [place], [place]. They relocated to [facility] in 2010. Things continue to go well with caregiver, Gela who comes 2 days/week for 4 hours at a time. Medications/Allergies - Medications Home Medications: Ambulatory Orders Medication Instructions Recorded Confirmed Atorvastatin Calcium 20 mg PO DAILY 03/04/16 01/26/20 Losartan Potassium 100 mg PO DAILY 03/04/16 01/26/20 Omeprazole 20 mg PO DAILY 03/04/16 01/26/20 carvediloL [Carvedilol] 3.125 mg PO BID 03/04/16 01/26/20 Magnesium Oxide [Mag Ox] 400 mg PO DAILYWM 11/06/19 01/26/20 Tamsulosin HCl [Flomax] 0.8 mg PO DAILY 11/06/19 01/26/20 hydroCHLOROthiazide 12.5 mg PO DAILY 11/06/19 01/26/20 [Hydrochlorothiazide] Hydrocodone/Acetaminophen [[place] 3 tab PO BID PRN 01/26/20 01/26/20 5-325 Tablet] polyethylene glycoL 3350 [Miralax] 17 g PO Q48H 01/26/20 01/26/20 Finasteride [Proscar] 5 mg PO DAILY 03/10/20 03/10/20 Gabapentin [Neurontin] 200 mg PO QPM 03/10/20 Insulin Aspart Prot/Insuln Asp 27 units SQ BID 05/29/20 05/29/20 [Insulin Aspart Prot ([id number])] Morphine Sulfate [Ms Contin] 15 mg PO QPM 02/27/21 02/27/21 Naloxone HCl Nasal [Narcan Nasal] PRN 02/27/21 - Allergies Allergies/Adverse Reactions: Allergies Allergy/AdvReac Type Severity Reaction Status Date / Time atenolol AdvReac Mild Nausea Verified 06/26/20 15:52 oxycodone AdvReac Unknown Verified 06/26/20 15:52 Review of Systems - Constitutional Constitutional: reports: Weight gain. denies: Fatigue (sleeps until 2pm most days), Fever, Poor appetite - Eyes Eyes: reports: Corrective lenses - Ears, Nose & Throat Ears, Nose & Throat: reports: Hearing loss. denies: Hearing aids - Cardiovascular Cardiovascular: reports: Edema (intermittent). denies: Chest pain - Respiratory Respiratory: denies: Cough - Gastrointestinal Gastrointestinal: reports: Constipation (patient reporting hard stools and was noted on evaluation today after defecation), Good appetite. denies: Nausea - Genitourinary Genitourinary: reports: Other (BPH). denies: Dysuria - Musculoskeletal Musculoskeletal: reports: Back pain, Stiffness, Joint pain (right knee most specifically), Assistive devices, Transfer issues - Integumentary Integumentary: reports: Dryness - Neurological Neurological: reports: General weakness, Memory problems. denies: Numbness (BLE controlled with gabapentin) - Psychiatric Psychiatric: denies: Depression - Endocrine Endocrine: reports: Diabetes type 2 (HgA1C 7.7% on 12/2020) - Hematologic/Lymphatic Hematologic/Lymph: reports: Other (History of PE 10/2019, coumadin has been discontinued by PCP). denies: Recurrent infections - All Other Systems All Other Systems: reports: Reviewed and negative (Review of systems supplemented by patient's , Jason and caregiver, Gela.) Physical Exam - Vital Signs Temperature: 36.7 C Pulse Rate: 63 O2 Saturation: 96 (on RA) Blood Pressure: 154/78 (left arm) - Physical Exam General Appearance: positive: No acute distress, Alert, Other (slightly dishelved) Eyes Bilateral: positive: Normal inspection ENT: positive: No signs of dehydration Neck: positive: Trachea midline Cardiovascular: positive: Regular rate & rhythm, Systolic murmur Respiratory: positive: No respiratory distress, Breath sounds nml Abdomen: positive: Non-tender, Soft, Nml bowel sounds, Other (+round) Skin: positive: Dryness Neurologic/Psychiatric: positive: Oriented x3, Mood/affect nml, Other (shuffling gait with walker) Palliative Care - POLST Patient has POLST: Yes POLST Status: DNR, Selective Treatment Pain: Pain worsening Drowsiness/Sedation: Moderate (4-6) Feelings of wellbeing/Perceived Quality of Life: Acceptable Sleep: Variable sleep pattern Constipation: Yes - Palliative Care Discussion: Patient has a longstanding history of chronic osteoarthritic pain as well as back pain and has been on hydrocodone/acetaminophen for at least 2 decades. Patient is having increased reports of pain specifically to his right knee and back. The patient has been increasing his utilization of hydrocodone/acetaminophen and would benefit from trialing low-dose MS Contin in the evening for pain as this may be interfering with his sleep. Discussed starting low given the patient's small volume of time that he is awake and alert during the day and potentially may titrate up to twice daily dosing. Patient's spouse is amenable to trying this. Discussed that moving forward palliative care will assume pain management responsibilities and would elect to be at 1 pharmacy with 1 provider with understanding verbalized in agreement. Set expectations regarding potential side effects of long-acting opioid therapy and reviewed keeping opioids in a safe, locked space to ensure that the patient does not have access given his underlying dementia. The patient is having voracious appetite and is often asking for additional food as he does not recall that he has just eaten. This is likely due to his underlying advancement of dementia. Discussed smaller portion sizes and trialing having the patient's food on a red plate to reduce his amount of food. Impression and Recommendations - Palliative Care Impression: This is a 80-year-old gentleman with dementia, constipation, diabetes mellitus type 2 and chronic osteoarthritic pain that is advancing. Patient would benefit from long-acting opioid therapy MS Contin in the evening as a trial. Would also benefit from having MiraLAX 1 cap every other day day for constipation symptoms. Patient spouse is averse to having MiraLAX on a daily basis. Palliative care to continue provide care coordination, symptom management and anticipatory guidance as it is a taxing and difficult effort for the patient to leave his home environment. Recommendations/Counseling Done: 1. Osteoarthritic pain, chronic. Patient with increasing pain to the back as well as right knee. Given utilization of hydrocodone/acetaminophen at approximately 45 MED per day Introduced the concept of long-acting therapy with MS Contin 15 mg in the evening to dial back the pain and utilize hydrocodone 5 mg/acetaminophen 325 mg 3 tablets twice a day as needed for pain. All parties are amenable. Discussed moving forward that the patient's pain regimen will be managed by palliative care setting boundaries with 1 provider and 1 pharmacy and electing to choose [facility]. Also discussed having Narcan in the home as a precaution given different parties coming in and out of the home and to store medications in a safe locked area. 2. Constipation. Patient typically wanes on the diarrhea side with his bowels however, with increase of hydrocodone this may be contributing. Discussed utilizing MiraLAX 1 cap every other day for constipation. Continue to encourage oral hydration. Continue to monitor and adjust bowel regimen. 3. Weight gain. Due to dementia and unable to perceive that he has eaten. Continue to provide gentle cueing. Trial having a red plate for reduction of consumption of food. Also utilize small portions. 4. Diabetes mellitus type 2. No episodes of hypo or hyperglycemia reported. Last hemoglobin A1c 7.7% in December 2020. Continue NovoLog on 70/30 mix 27 units twice daily. Continue to obtain blood glucose level every other day. Continue routine foot care with podiatry. Seen by ophthalmology in 2020. Given the patient's advanced age and chronic comorbidities hemoglobin A1c of 7 to 8% as goal. 5. Dementia. Chronic. Progressive. Fall precautions. On no disease modifying agents. Given the patient's advanced age and chronic morbidities a gradual decline is expected Total time spent 45 minutes with greater than 50% of the spent in counseling coronation of care with patient, spouse/DPOA and caregiver, Gela; review of pain and symptom management and setting expectations regarding pain management moving forward; examination of patient; review of symptom management and anticipatory guidance. Disclaimer: The chart note was formulated using voice recognition technology and unfortunately sound alike errors may occur.
== END 2021-02-27 13:56 | disposition home or self-care (01) ==
LOC: PC 13:55
PROVIDERS: ATTEND Nurse Practitioner Family
DX: Z51.5 Encounter for palliative care (principal); G89.29 Other chronic pain; K59.00 Constipation, unspecified; F03.90 Unspecified dementia, unspecified severity, without behavioral disturbance, psychotic disturbance, mood disturbance, and anxiety; M19.90 Unspecified osteoarthritis, unspecified site; E11.9 Type 2 diabetes mellitus without complications; G47.30 Sleep apnea, unspecified; Z79.01 Long term (current) use of anticoagulants; Z86.711 Personal history of pulmonary embolism; Z79.4 Long term (current) use of insulin
CPT/HCPCS: 99349

== ENCOUNTER 2021-03-21 14:30 | Outpatient (CLI) | payer MEDICARE, OTHER ==
--- NOTE | 2021-03-21 15:45 | CONSULTATION NOTE ---
Palliative Care Follow Up - Referral Referring Provider: Dr. Morro Nunez Time of Visit: [id number] Referral setting: Home Referral Reason: Dementia/Chroic OA pain/BPH - Information Sources Records reviewed: Previous records reviewed History/Review of Systems obtained from: Patient, Family Exam limitations: Clinical condition (+Dementia) - History of Present Illness Update Brief HPI Update: This is a 80-year-old gentleman who was seen in follow-up today for dementia, chronic osteoarthritic pain, diabetes mellitus type 2, within his home with his , Jason present. Provider wore N95 mask. Patient is presently on Novolin 70/30 mix of 27 units twice a day. His blood glucose has been averaging 162. Blood glucose levels have been as follows 95, 120, 104, 181, 132, 162, 150, 132, 119. No increased thirst, shakes, or diaphoresis. The patient continues have waxing and waning appetite. Spouse reports that he will have 2 to 3 days where he has a voracious appetite and will eat everything and then the following 3 days will have a decrease in appetite and report that he is not hungry and will have limited intake. The spouse consistently checks his blood glucose level fasting between 6 and 6:30 in the morning. The patient spouse and caregiver previously reporting increased generalized pain. He had increased his hydrocodone/acetaminophen 5 mg/325 taking an average 6 to 9 tablets/day. Palliative care had initiated 1 MS Contin 15 mg in the evening with the anticipation to titrate up to MS Contin 15 mg twice daily to determine the patient's tolerance and avoid adverse effects. Since palliative care was last in the home the patient was seen and evaluated by his PCP on 03/01. During that office visit the PCP had increased the patient's MS Contin to 15 mg twice daily and moving forward to the patient's spouse wishes to have pain management through primary care provider and not palliative care. Therefore, will respect patient's spouse's wishes and to have primary care manage chronic pain. Patient spouse reports that with increase of MS Contin to 50 mg twice daily the patient overall was having improvement in his overall pain. Typically when the patient spouse would ask what he would rate his pain that it would typically be a 5 out of 10. With increase of MS Contin reporting 2 out of 10 pain. However, today, the patient reports that he is "achy." Patient spouse reports that he has been without of his MS Contin for 3 days. She has been contact with patient's PCP office regarding prescriptions. He also only has additional 3 doses of his hydrocodone/acetaminophen. Call to [facility] pharmacy made by palliative care RN who reports the prescriptions may be picked up on 03/22 and patient spouse plans to pick these up first thing. Noted change since last evaluation is patient now is mainly incontinent of urine and now using depends. He continues to remain continent of bowel. Typically defecating routinely and intermittently requiring MiraLAX to assist with defecation. Past Medical History: Patient has a past medical history of hypertension, hyperlipidemia, coronary artery disease, severe sleep apnea diagnosed 2002 with CPAP use, dementia, diabetes mellitus type 2, BPH, chronic sinusitis, claustrophobia, osteoarthritis, chronic back pain, history of CABG, pulmonary embolism in October 2019 (on Coumadin 10/2019 to 05/2020). +COVID-19 vaccine and s/p booster 12/2020 Social History - Living Situation Living arrangement: At home Living Situation: With spouse/s.o. Support System: Patient and spouse have been for approximately 25 years. They have no children together. The patient has 3 children from his first marriage, but they have been estranged for many years and do not communicate. The patient grew up in [place], [place]. They relocated to [facility] in 2010. Caregiver, Gela, comes 2 days/week for 4 hours at a time. To see podiatry 04/03 Medications/Allergies - Medications Home Medications: Ambulatory Orders Medication Instructions Recorded Confirmed Atorvastatin Calcium 20 mg PO DAILY 03/04/16 01/26/20 Losartan Potassium 100 mg PO DAILY 03/04/16 01/26/20 Omeprazole 20 mg PO DAILY 03/04/16 01/26/20 carvediloL [Carvedilol] 3.125 mg PO BID 03/04/16 01/26/20 Magnesium Oxide [Mag Ox] 400 mg PO DAILYWM 11/06/19 01/26/20 Tamsulosin HCl [Flomax] 0.8 mg PO DAILY 11/06/19 01/26/20 hydroCHLOROthiazide 12.5 mg PO DAILY 11/06/19 01/26/20 [Hydrochlorothiazide] Hydrocodone/Acetaminophen [[place] 3 tab PO BID PRN MDD prescribed by 01/26/20 01/26/20 5-325 Tablet] PCP polyethylene glycoL 3350 [Miralax] 17 g PO Q48H 01/26/20 01/26/20 Finasteride [Proscar] 5 mg PO DAILY 03/10/20 03/10/20 Gabapentin [Neurontin] 200 mg PO QPM 03/10/20 Insulin Aspart Prot/Insuln Asp 27 units SQ BID 05/29/20 05/29/20 [Insulin Aspart Prot ([id number])] Morphine Sulfate [Ms Contin] 15 mg PO BID MDD prescribed by PCP 02/27/21 02/27/21 Naloxone HCl Nasal [Narcan Nasal] PRN 02/27/21 - Allergies Allergies/Adverse Reactions: Allergies Allergy/AdvReac Type Severity Reaction Status Date / Time atenolol AdvReac Mild Nausea Verified 06/26/20 15:52 oxycodone AdvReac Unknown Verified 06/26/20 15:52 Review of Systems - Constitutional Constitutional: reports: Fatigue (sleeps until 2pm most days), Poor appetite, Weight gain. denies: Fever - Eyes Eyes: reports: Corrective lenses - Ears, Nose & Throat Ears, Nose & Throat: reports: Hearing loss. denies: Hearing aids - Cardiovascular Cardiovascular: reports: Edema (intermittent, recently increased pedal edema last week that this week improved). denies: Chest pain - Respiratory Respiratory: denies: Cough - Gastrointestinal Gastrointestinal: reports: Other (See HPI for full details re: appetite). denies: Abdominal pain, Constipation (see HPI), Nausea - Genitourinary Genitourinary: reports: Incontinence (see HPI), Other (BPH). denies: Dysuria - Musculoskeletal Musculoskeletal: reports: Back pain, Stiffness, Joint pain (right knee most specifically), Assistive devices, Transfer issues - Integumentary Integumentary: reports: Dryness - Neurological Neurological: reports: General weakness, Memory problems. denies: Numbness (BLE controlled with gabapentin) - Psychiatric Psychiatric: denies: Depression - Endocrine Endocrine: reports: Diabetes type 2 (HgA1C 7.7% on 12/2020) - Hematologic/Lymphatic Hematologic/Lymph: reports: Other (History of PE 10/2019, coumadin has been discontinued by PCP). denies: Recurrent infections - All Other Systems All Other Systems: reports: Reviewed and negative (Review of systems supplemented by patient's , Jason and caregiver, Gela.) Physical Exam - Vital Signs Temperature: 36.5 C Pulse Rate: 57 O2 Saturation: 95 (on RA) Blood Pressure: 153/68 - Physical Exam General Appearance: positive: No acute distress, Alert, Other (slightly dishelved) Eyes Bilateral: positive: Normal inspection ENT: positive: No signs of dehydration Neck: positive: Trachea midline Cardiovascular: positive: Regular rate & rhythm, Systolic murmur (2/6 FLORES) Respiratory: positive: No respiratory distress, Breath sounds nml Abdomen: positive: Non-tender, Soft, Nml bowel sounds, Other (+round). negative: Guarding, Taut Skin: positive: Dryness Extremities: positive: Pedal edema (Trace BLE edema) Neurologic/Psychiatric: positive: Oriented x3 (+STM impairment), Mood/affect nml Palliative Care - POLST Patient has POLST: Yes POLST Status: DNR, Selective Treatment Pain: Pain worsening (due to being out of MS Contin for appx 3-4 days per spouse report when was increased to BID dosing.) Sleep: Sleeps well Constipation: Managed, Intermittent constipation Performance Status: Ambulatory with Rollator. No recent falls. No dysphagia reporting during meals. No reported weight loss. Requires assistance with bathing. Newly incontinent of bladder. Remains continent of bowel. FAST 6D - Palliative Care Discussion: Patient has had a longstanding history of chronic osteoarthritic pain as well as back pain and has been on hydrocodone/acetaminophen for at least 2 decades. He was having increased reports of pain and palliative care initiated on MS Contin 50 mg nightly with the goal to titrate up to twice daily dosing. The patient subsequently was seen and evaluated by his PCP who increased his MS Contin to 50 mg twice daily and had a positive response from this. Reviewed with the patient's spouse the need to contact prescribing provider approximately 1 week before medications are out to ensure timely obtainment to not run out of medications for potential withdrawal symptoms given the patient's longstanding history of opioid therapy and physical dependence. Patient's spouse/DPOA and patient have elected to have primary care provider manage the patient's pain regimen and acknowledges this decision. The patient is demonstrating some functional decline related to progression of his dementia now with development of more frequent urinary incontinence where he is mainly incontinent of bladder. Impression and Recommendations - Palliative Care Impression: This is a 80-year-old gentleman with dementia, diabetes mellitus type 2 and chronic osteoarthritic pain. Pain management is being managed by primary care provider. Patient is demonstrating is advancing symptoms due to dementia now at an FAS T6D. Palliative care to continue provide care coordination symptom carlos bee and anticipatory guidance per spouse request. Recommendations/Counseling Done: 1. Bilateral lower extremity edema. Continue HCTZ 12.5 mg daily. Discussed obtainment of diabetic compression socks for ease of donning and doffing and mild compression to be put on first in the morning and removed in the evening. Continue to avoid added salts to foods. Continue to encourage elevation of lower extremities when at rest. 2. Diabetes mellitus type 2. No episodes of hypo or hyperglycemia reported. Last hemoglobin A1c 7.7% in December 2020. Continue NovoLog 70/30 mix of 27 units administered subcutaneously twice daily. Continue to obtain blood glucose level every other day fasting. Continue routine foot care with podiatry neck schedule II/16. Seen by ophthalmology in 2020. Given the patient's advanced age and chronic comorbidities a hemoglobin A1c of 7 to 8% is the goal. 3. Osteoarthritic pain, chronic. Patient is presently out of MS Contin 15 mg tablets and may be picked up on 03/22 and spouse aware and to obtain. Continue MS Contin and hydrocodone/acetaminophen as prescribed by PCP. Pain regimen to be managed by patient's PCP per spouse/DPOA request. 4. Urinary incontinence in the setting of advancing dementia. Continue use of depends for incontinence. Recommended incontinence supplies available at [facility] in [place] and provided contact information. Recommendation also made to evaluate [employer] for balk delivery. 5. Dementia. Chronic. Progressive. Fall precautions. On no disease modifying agents. Given the patient's advanced age and chronic comorbidities a gradual decline is expected. Total time spent 35 minutes with greater than 50% is spent in counseling and coordination of care with the patient and spouse/DPOA; review of role of palliative care; clarified pain management to be overseen by PCP to follow; examination of patient; review of blood glucose log; review of and anticipatory guidance. Disclaimer: The chart note was formulated using voice recognition technology and unfortunately sound alike errors may occur.
== END 2021-03-21 14:31 | disposition home or self-care (01) ==
LOC: PC 14:30
PROVIDERS: ATTEND Nurse Practitioner Family
DX: Z51.5 Encounter for palliative care (principal); R60.0 Localized edema; E11.9 Type 2 diabetes mellitus without complications; Z79.4 Long term (current) use of insulin; Z79.891 Long term (current) use of opiate analgesic; M19.91 Primary osteoarthritis, unspecified site; F03.90 Unspecified dementia, unspecified severity, without behavioral disturbance, psychotic disturbance, mood disturbance, and anxiety; R32 Unspecified urinary incontinence; Z66 Do not resuscitate
CPT/HCPCS: 99348

== ENCOUNTER 2021-05-17 11:00 | Outpatient (CLI) | payer MEDICARE, OTHER ==
--- NOTE | 2021-05-17 12:19 | CONSULTATION NOTE ---
Palliative Care Follow Up - Referral Referring Provider: Dr. Morro Nunez Time of Visit: [id number] Referral setting: Home Referral Reason: Dementia/Debility/Chronic OA pain - Information Sources Records reviewed: Previous records reviewed History/Review of Systems obtained from: Patient, Family (spouse/DPMICAELA Gomez), Caregiver (Gela) Exam limitations: Clinical condition (+TUNUNAK and STM impairment) - History of Present Illness Update Brief HPI Update: This is a 80-year-old gentleman who was seen in follow-up today for dementia, chronic osteoarthritic pain, diabetes mitis type II, progressive debility within his home with his , Jason present and caregiver, Gela. Provider wore N95 mask. Caregiver and spouse reached out to palliative care last week noting increased overall decline since this provider's last evaluation. Patient is no longer ambulatory independently and is requiring a gait belt with contact-guard. It takes him about 30 minutes to venture the short distance from his recliner to the bathroom or the bathroom to the bedroom. He is also sleeping more during the day approximately 16 to 18 hours. He is typically getting up about 4:56 PM in the evenings. They are also noticing some ing behaviors with him perseverating regarding finding controllers as well as cleaning products. He did utilize Clorox wipes inappropriately to clean himself and then clogged the toilet. They are also noting that he has had a significant decrease in his oral intake decreased now to half a meal per day with milk. No noted dysphagia reported. They have also noticed that his shirts are fitting looser. In the last 2 weeks they have stopped giving the patient's Novolin 70/30 mix twice a day and reduced it to 27 units in the morning. He has had 3 documented lows in the 50s for his blood glucose level in the month of April. His maximum blood glucose level has been 209. Would benefit from further dose reduction of his Novolin 70/30 insulin. He is also having well controlled pain that has been managed by his PCP and is now titrated up to MS Contin 15 mg 3 times daily. He is typically only requiring 1 to 2 tablets of hydrocodone/acetaminophen for breakthrough pain. Caregiver and spouse reports that they have been on a consistency with the patient's presents pain. Past Medical History: Patient has a past medical history of hypertension, hyperlipidemia, coronary artery disease, severe sleep apnea diagnosed 2002 with CPAP use, dementia, diabetes mellitus type 2, BPH, chronic sinusitis, claustrophobia, osteoarthritis, chronic back pain, history of CABG, pulmonary embolism in October 2019 (on Coumadin 10/2019 to 05/2020). +COVID-19 vaccine and s/p booster 12/2020 Social History - Living Situation Living arrangement: At home Living Situation: With spouse/s.o. Support System: Patient and spouse have been for approximately 25 years. They have no children together. The patient has 3 children from his first marriage, but they have been estranged for many years and do not communicate. The patient grew up in [place], [place]. They relocated to [facility] in 2010. Caregiver, Gela, comes 2 days/week for 4 hours at a time. Medications/Allergies - Medications Home Medications: Ambulatory Orders Medication Instructions Recorded Confirmed Losartan Potassium 100 mg PO DAILY 03/04/16 01/26/20 Omeprazole 20 mg PO DAILY 03/04/16 01/26/20 carvediloL [Carvedilol] 3.125 mg PO BID 03/04/16 01/26/20 Tamsulosin HCl [Flomax] 0.8 mg PO DAILY 11/06/19 01/26/20 Hydrocodone/Acetaminophen [[place] 3 tab PO BID PRN MDD prescribed by 01/26/20 01/26/20 5-325 Tablet] PCP polyethylene glycoL 3350 [Miralax] 17 g PO DAILY 01/26/20 01/26/20 Finasteride [Proscar] 5 mg PO DAILY 03/10/20 03/10/20 Gabapentin [Neurontin] 200 mg PO QPM 03/10/20 Insulin Aspart Prot/Insuln Asp 20 units SQ DAILY 05/29/20 05/29/20 [Insulin Aspart Prot ([id number])] Morphine Sulfate [Ms Contin] 15 mg PO TID MDD prescribed by PCP 02/27/21 02/27/21 Naloxone HCl Nasal [Narcan Nasal] PRN 02/27/21 - Allergies Allergies/Adverse Reactions: Allergies Allergy/AdvReac Type Severity Reaction Status Date / Time atenolol AdvReac Mild Nausea Verified 06/26/20 15:52 oxycodone AdvReac Unknown Verified 06/26/20 15:52 Review of Systems - Constitutional Constitutional: reports: Fatigue (sleeping appx 16-18 hours per day, increased), Poor appetite, Weight loss (shirts have become looser). denies: Fever - Eyes Eyes: reports: Corrective lenses - Ears, Nose & Throat Ears, Nose & Throat: reports: Hearing loss. denies: Hearing aids - Cardiovascular Cardiovascular: denies: Chest pain, Edema (no edema to BLE for last 3 weeks) - Respiratory Respiratory: denies: Cough, Other (No dysphagia reported with pills) - Gastrointestinal Gastrointestinal: reports: Constipation (bowel movement once per week and will have "blow outs"), Poor appetite, Other (Has decreased to 1/2 meal per day in last month). denies: Abdominal pain, Nausea, Vomiting - Genitourinary Genitourinary: reports: Incontinence, Other (BPH). denies: Dysuria - Musculoskeletal Musculoskeletal: reports: Back pain, Stiffness, Joint pain (right knee most specifically, improved), Assistive devices, Transfer issues - Integumentary Integumentary: reports: Dryness - Neurological Neurological: reports: General weakness, Memory problems. denies: Numbness (BLE controlled with gabapentin) - Psychiatric Psychiatric: denies: Depression - Endocrine Endocrine: reports: Diabetes type 2 (HgA1C 7.7% on 12/2020) - Hematologic/Lymphatic Hematologic/Lymph: reports: Other (History of PE 10/2019, coumadin has been discontinued by PCP). denies: Recurrent infections - All Other Systems All Other Systems: reports: Reviewed and negative (Review of systems supplemented by patient's , Jason and caregiver, Gela.) Physical Exam - Vital Signs Pulse Rate: 54 O2 Saturation: 95 (on RA) Blood Pressure: 142/70 - Physical Exam General Appearance: positive: No acute distress, Alert, Other (slightly dishelved, b/l temporal wasting noted---new from last evaluation) Eyes Bilateral: positive: Normal inspection ENT: positive: No signs of dehydration, Other (Dentures not in place) Neck: positive: Trachea midline Cardiovascular: positive: Regular rate & rhythm, Systolic murmur (2/6 FLORES) Respiratory: positive: No respiratory distress, Breath sounds nml. negative: Rales Abdomen: positive: Non-tender, Soft, Nml bowel sounds, Other (+round) Skin: positive: Dryness Extremities: positive: No pedal edema Neurologic/Psychiatric: positive: Mood/affect nml, Disoriented to time, Weakness (Shuffling gait with walker with gait belt and contact guard) Palliative Care - POLST Patient has POLST: Yes POLST Status: DNR, Selective Treatment Pain: Pain improved (With MS COntin 15mg TID dosing) Tiredness/Fatigue: Moderate (4-6) Drowsiness/Sedation: Moderate (4-6) Nausea: None Anorexia: Moderate (4-6) Dyspnea: None Depression: None Anxiety: None Sleep: Sleeps well Constipation: Yes, Opoid induced Performance Status: Patient has a history of frequent falls requiring lift assist. No dysphagia reported during meals. Noted weight loss with clothing. Now receiving bed baths due to unsteadiness. Now incontinent of bowel and bladder. He requires a gait belt and contact-guard with ambulation. FAS T7 C - Palliative Care Discussion: Patient has been experiencing a gradual, functional and cognitive decline over the last 7 years from an initial diagnosis with dementia. However, in the last several weeks both the patient spouse and caregiver have noted significant functional decline with the patient no longer being ambulatory without assistance, being incontinent of bowel and bladder, and significant reduction in his oral intake. The patient has always expressed that he wishes to be comfortable within his home environment and patient spouse wishes to honor that request and therefore, wishes to make a transition to hospice services for additional support and to keep the patient comfortable and supported within the home environment. The patient finds the word hospice triggering and therefore approach to transition as hospice team as "comfort team" and the patient was open to this conversation. Given the patient's decline he has had elimination of his bilateral lower extremity edema as well as noted hypoglycemia with his blood glucose levels and therefore, would benefit from medication adjustments. Discontinue HCTZ and monitor for any signs and symptoms of return of lower extremity edema. We will also significantly reduce the patient's insulin Novolin 70/30 given his only eating half a meal per day and discussed goal is to have his blood glucose level above 80. Would prefer to have higher levels of blood glucose level for prevention of hypoglycemic event and falls. Impression and Recommendations - Palliative Care Impression: This is a 80-year-old gentleman with dementia, FAS T7 C, diabetes mellitus type 2 now with episodes of hypoglycemia, no longer with bilateral lower extremity edema and significant constipation due to opioid therapy and sedentary lifestyle. Pain management has been managed by the patient's primary care provider and has had significant improvement in his pain. He has progressed now to a FAS T7 C and would benefit from transitioning to hospice services known to the patient as comfort team." Palliative care to continue provide care coordination, symptom management meds and anticipatory guidance with transition to hospice services per the spouse's request. Recommendations/Counseling Done: 1. Diabetes mellitus type 2. Episodes of hypoglycemia. Last hemoglobin A1c 7.7% in December 2020. Given a significant reduction in the patient's oral intake reduce Novolin 70/30 mix to 20 units administered subcutaneously once daily. Continue to obtain blood glucose levels daily fasting. Goal is to have a blood glucose level above 80. Last seen by ophthalmology in 2020. Given the patient's advanced age and chronic comorbidities hemoglobin A1c of 7 to 8% is the goal. Spouse and caregiver to contact palliative care next week with blood glucose level readings. 2. Bilateral lower extremity edema. Resolved. In the setting of patient with decreased oral intake and elevation of lower extremities and is sleeping more during the day. Discontinue HCTZ 12.5 mg. Continue to avoid added salts to foods. Continue to encourage elevation of lower extremities when at rest. Discussed if return of lower extremity edema will then add back on HCTZ 12.5 mg with all parties understanding and verbalizing plan of care. 3. Constipation. Sedentary lifestyle and opioid therapy contributing. Presently having a bowel movement approximately once per week. Reviewed goal is to have a daily soft bowel movement typically 2-3 times per week. Initiate MiraLAX 1 cap daily and milk or coffee. Initiate senna 1 tablet daily. Patient has a longstanding history of constipation. Continue to monitor and adjust bowel regimen as needed. 4. Osteoarthritis pain, chronic. Managed by patient's PCP. Controlled with MS Contin 15 mg 3 times daily. Continues with hydrocodone/acetaminophen for breakthrough pain. Pain to continue to be managed by patient's PCP per spouse's's request until transition to hospice services. 5. Decreased oral intake. Noted appreciated weight loss. Right MAC 31 cm today. This is all in the setting of advancing dementia. Continue to encourage foods that the patient finds pleasurable. 6. Dementia. Chronic. Progressive. Fall precautions. No disease modifying agents. Now with difficulty ambulating without contact guard and assistance and incontinent of bowel and bladder at an FAS T7 C. Given the patient's advanced age and chronic comorbidities a gradual decline is expected. 7. Hyperlipidemia. Discussed with spouse/DPOA at length given the patient's advanced age, progression of dementia and comorbidities would recommend discontinuation of atorvastatin given time to benefit of statin therapy. After weighing benefits versus burdens Given patient's potential life expectancy and medication side effects patient spouse is in agreement for discontinuation of atorvastatin. 8. Advanced care planning. Patient has a POLST in place as DN AR. Patient's caregiver and spouse recognize the patient has had significant changes cognitively and functionally over the last several weeks. Spouse wishes to focus on comfort measures within the home environment to respect the patient's wishes. Introduced the role of hospice services using the title, comfort team" as the patient finds the word hospice triggering. All parties wish the patient to transition to hospice services for additional added layer of support and to focus on comfort and quality of life within the home environment. Patient spous e wishes to utilize would be home hospice and recommendation referral was made. Total time spent 60 minutes with greater than 50% of the spent in counseling and coronation of care with the patient, spouse/DPOA and caregiver; review of hospice philosophy; examination of patient; review of medication and management; review blood glucose log; and anticipatory guidance. Contacted patient's PCP, Dr. Nunez at [phone] and updated regarding patient's spouse/DPOA's request to transition to hospice services and message left. Disclaimer: The chart note was formulated using voice recognition technology and unfortunately sound alike errors may occur.
== END 2021-05-17 11:01 | disposition home or self-care (01) ==
LOC: PC 11:00
PROVIDERS: ATTEND Nurse Practitioner Family
DX: Z51.5 Encounter for palliative care (principal); F03.90 Unspecified dementia, unspecified severity, without behavioral disturbance, psychotic disturbance, mood disturbance, and anxiety; F05 Delirium due to known physiological condition; G89.29 Other chronic pain; M19.90 Unspecified osteoarthritis, unspecified site; E11.649 Type 2 diabetes mellitus with hypoglycemia without coma; R63.8 Other symptoms and signs concerning food and fluid intake; R63.4 Abnormal weight loss; K59.03 Drug induced constipation; T40.2X5A Adverse effect of other opioids, initial encounter; R53.83 Other fatigue; R53.1 Weakness; R26.89 Other abnormalities of gait and mobility; R32 Unspecified urinary incontinence; R15.9 Full incontinence of feces; Z79.4 Long term (current) use of insulin; Z74.09 Other reduced mobility; Z79.899 Other long term (current) drug therapy; Z79.891 Long term (current) use of opiate analgesic; Z91.81 History of falling; Z66 Do not resuscitate
CPT/HCPCS: 99350

== ENCOUNTER 2021-05-29 10:10 | Outpatient (CLI) | payer MEDICARE, OTHER ==
--- NOTE | 2021-05-29 16:41 | CONSULTATION NOTE ---
Palliative Care Follow Up - Referral Referring Provider: Dr. Morro Nunez Time of Visit: [id number] Referral setting: Home Referral Reason: Urinary Frequency/DM type II/Constipation - Information Sources Records reviewed: Previous records reviewed History/Review of Systems obtained from: Patient, Family (spouse, Jason), Caregiver (Gela) - History of Present Illness Update Brief HPI Update: This is a 80-year-old gentleman who was seen in acute evaluation today due to increased urinary frequency and decreased urinary output per spouse and ca regiver as well as is diabetes mellitus type 2 in the setting of decreased oral intake with advanced dementia. Provider wore N95 mask. The patient was referred to hospice services in May 2021 however, was a nonadmit and has at this time does not fully meet criteria. This week, the patient has had increased urinary frequency with minimal output overall per caregiver and spouse either independence or in the restroom. This is also in the setting of some underlying constipation with the patient's last effective bowel movement noted on Thursday. He will intermittently complain of abdominal discomfort but unable to pinpoint any other complaints. Was able to void 30 minutes prior to this PREF[facility]TER DOORS's arrival and a nuns And it was is slightly dark per report. On last evaluation by this [facility] on 05/17 his HCTZ was discontinued and he has not had any resumption of lower extremity edema. Also on last evaluation his insulin 70/30 mix was decreased to 20 units once per day. His blood glucose levels since that time have been 110, 129, and as of today 119. Patient continues to consume minimally intake only 1 meal per day. Past Medical History: Patient has a past medical history of hypertension, hyperlipidemia, coronary artery disease, severe sleep apnea diagnosed 2002 with CPAP use, dementia, diabetes mellitus type 2, BPH, chronic sinusitis, claustrophobia, osteoart hritis, chronic back pain, history of CABG, pulmonary embolism in October 2019 (on Coumadin 10/2019 to 05/2020). +COVID-19 vaccine and s/p booster 12/2020 Social History - Living Situation Living arrangement: At home Living Situation: With spouse/s.o. Support System: Patient and spouse have been for approximately 25 years. They have no children together. The patient has 3 children from his first marriage, but they have been estranged for many years and do not communicate. The patient grew up in [place], [place]. They relocated to [facility] in 2010. Caregiver, Gela, comes 3 days/week for 4 hours at a time--typically Thursday, Thursday and Thursday. Medications/Allergies - Medications Home Medications: Ambulatory Orders Medication Instructions Recorded Confirmed Losartan Potassium 100 mg PO DAILY 03/04/16 01/26/20 Omeprazole 20 mg PO DAILY 03/04/16 01/26/20 carvediloL [Carvedilol] 3.125 mg PO BID 03/04/16 01/26/20 Tamsulosin HCl [Flomax] 0.8 mg PO DAILY 11/06/19 01/26/20 Hydrocodone/Acetaminophen [[place] 3 tab PO BID PRN MDD prescribed by 01/26/20 01/26/20 5-325 Tablet] PCP polyethylene glycoL 3350 [Miralax] 17 g PO DAILY 01/26/20 01/26/20 Finasteride [Proscar] 5 mg PO DAILY 03/10/20 03/10/20 Gabapentin [Neurontin] 200 mg PO QPM 03/10/20 Insulin Aspart Prot/Insuln Asp 20 units SQ DAILY 05/29/20 05/29/20 [Insulin Aspart Prot ([id number])] Morphine Sulfate [Ms Contin] 15 mg PO TID MDD prescribed by PCP 02/27/21 02/27/21 Naloxone HCl Nasal [Narcan Nasal] PRN 02/27/21 - Allergies Allergies/Adverse Reactions: Allergies Allergy/AdvReac Type Severity Reaction Status Date / Time atenolol AdvReac Mild Nausea Verified 06/26/20 15:52 oxycodone AdvReac Unknown Verified 06/26/20 15:52 Review of Systems - Constitutional Constitutional: reports: Fatigue, Poor appetite, Weight loss (Right MAC 31cm 05/17/21). denies: Fever - Eyes Eyes: reports: Corrective lenses - Ears, Nose & Throat Ears, Nose & Throat: reports: Hearing loss. denies: Hearing aids - Cardiovascular Cardiovascular: denies: Chest pain, Edema (no BLE edema) - Respiratory Respiratory: denies: Cough - Gastrointestinal Gastrointestinal: reports: Constipation (bowel movement once per week and will have "blow outs" with last BM thursday after dose of miralax. Has had small amounts of stool since thursday but significant amount per spouse.), Poor appetite, Other (Has decreased to 1/2 meal per day in last month). denies: Abdominal pain, Nausea, Vomiting - Genitourinary Genitourinary: reports: Frequency, Incontinence, Other (BPH). denies: Dysuria, Hematuria - Musculoskeletal Musculoskeletal: reports: Back pain, Stiffness, Joint pain (right knee most specifically, improved), Assistive devices, Transfer issues - Integumentary Integumentary: reports: Dryness - Neurological Neurological: reports: General weakness, Memory problems. denies: Numbness (BLE controlled with gabapentin) - Psychiatric Psychiatric: denies: Depression - Endocrine Endocrine: reports: Diabetes type 2 (HgA1C 7.7% on 12/2020) - Hematologic/Lymphatic Hematologic/Lymph: reports: Other (History of PE 10/2019, coumadin has been discontinued by PCP). denies: Recurrent infections - All Other Systems All Other Systems: reports: Reviewed and negative (Review of systems supplemented by patient's , Jason and caregiver, Gela.) Physical Exam - Vital Signs Temperature: 37.1 C Pulse Rate: 64 O2 Saturation: 94 (on RA) Blood Pressure: 121/58 - Physical Exam General Appearance: positive: No acute distress, Alert, Other ( b/l temporal wasting noted-) Eyes Bilateral: positive: Normal inspection ENT: positive: No signs of dehydration, Other (Dentures not in place) Neck: positive: Trachea midline Cardiovascular: positive: Regular rate & rhythm, Systolic murmur (2/6 FLORES) Respiratory: positive: No respiratory distress, Breath sounds nml Abdomen: positive: Non-tender, Soft, Nml bowel sounds, Other (+round, bladder nondistended; +45mL and 61mL noted today with bladder scan) Skin: positive: Dryness Extremities: positive: No pedal edema Neurologic/Psychiatric: positive: Mood/affect nml, Disoriented to time, Weakness Palliative Care - POLST Patient has POLST: Yes POLST Status: DNR Pain: Pain improved (with MS Contin 15mg TID managed by PCP) - Palliative Care Discussion: Given the patient's increased urinary frequency and decreased amounts without evidence of urinary retention given bladder scan today revealed 45 mL and 61 mL on 2 separate occasions with the bladder scan of acute cystitis. Will initiate cephalexin 500 mg twice daily empirically and urine specimen collected today to be provided to lab for further evaluation. Did discuss with spouse and caregiver and encouragement of oral hydration. Also reviewed that constipation can be contributing factors with voiding appropriately. Given the patient is already on maximum dose of Flomax at 0.8 mg daily as well as addition of Proscar 5 mg daily no additional room for titration. Encourage utilization of MiraLAX today to promote more routine defecation. We will follow-up with results of urinalysis and urine culture if indicated. Impression and Recommendations - Palliative Care Impression: This is a 80-year-old gentleman with dementia, urinary frequency concern for acute cystitis, diabetes mellitus type 2 and iconstipation due to opioid therapy and sedentary lifestyle. Pain management has been managed by the patient's primary care provider. To initiate Cephalexin 500 mg twice daily x5 days in empirically for acute cystitis and urinalysis with microscopy and urine culture as indicated will be sent and will follow with results. Palliative care to continue provide care coordination, symptom management meds and anticipatory guidance with transition to hospice services per the spouse's request. Recommendations/Counseling Done: 1. Increased urinary frequency in the setting of BPH and constipation. Concerns for acute cystitis. Urine specimen collected today and will further evaluate. Initiate cephalexin 500 mg twice daily x5 days empirically for acute cystitis. Patient is on maximum dosage of Flomax at 0.8 mg as well as Proscar 5 mg daily for BPH. Bladder scan today did not reveal urinary retention with results 45Ml and 61mL. Encourage oral hydration. Will follow with results of urine specimen results. 2. Diabetes mellitus type 2. Episodes of hypoglycemia. Last hemoglobin A1c 7.7% in December 2020. Given a significant reduction in the patient's oral intake his Novolin 70/30 mix was reduced to 20 units administered subcutaneously once daily and tolerating this well and will continue at this dosage. If he does not consume a meal at all would hold Novolin 70/30 mix. Continue to obtain blood glucose levels daily fasting. Goal is to have a blood glucose level above 80. Last seen by ophthalmology in 2020. Given the patient's advanced age and chronic comorbidities hemoglobin A1c of 7 to 8% is the goal. 3. Constipation. Sedentary lifestyle and opioid therapy contributing. Advised to administer miralax 1/2 cap this evening and reviewed dose titration of bowel regimen to promote bowel movement 2-3 times per week. 4. Dementia. Chronic. Progressive. Fall precautions. No disease modifying agents. Now with difficulty ambulating without contact guard and assistance and incontinent of bowel and bladder. Given the patient's advanced age and chronic comorbidities a gradual decline is expected. 5. Advanced care planning. Patient has a POLST in place as DN AR. Spouse recognizes decline and wishes to focus on comfort in the home environment with hospice services. Was not admitted to hospice services in May 2021 due to not meeting criteria. Will continue to follow and transition when appropriate to transition to hospice services. Total time spent 40 minutes with greater than 50% of the spent in counseling coronation of care with the patient, spouse, and caregiver; examination of patient including bladder scan performance; review of acute cystitis and signs and symptoms of urinary retention; and anticipatory guidance. Disclaimer: The chart note was formulated using voice recognition technology and unfortunately sound alike errors may occur.
== END 2021-05-29 10:11 | disposition home or self-care (01) ==
LOC: PC 10:10
PROVIDERS: ATTEND Nurse Practitioner Family
DX: Z51.5 Encounter for palliative care (principal); N40.1 Benign prostatic hyperplasia with lower urinary tract symptoms; R35.0 Frequency of micturition; E11.9 Type 2 diabetes mellitus without complications; Z79.4 Long term (current) use of insulin; Z79.84 Long term (current) use of oral hypoglycemic drugs; K59.03 Drug induced constipation; T40.2X5A Adverse effect of other opioids, initial encounter; F03.90 Unspecified dementia, unspecified severity, without behavioral disturbance, psychotic disturbance, mood disturbance, and anxiety; Z66 Do not resuscitate
CPT/HCPCS: 99349

== ENCOUNTER 2021-05-29 10:58 | Outpatient (CLI) | payer MEDICARE, OTHER ==
[2021-05-29 11:06] LABS: BILIRUBIN,URINE NEGATIVE (NEGATIVE); GLUCOSE, URINE (UA) NEGATIVE (NEGATIVE); KETONES,URINE (UA) NEGATIVE (NEGATIVE); LEUKOCYTE ESTERASE, URINE NEGATIVE (NEGATIVE); NITRITE,URINE NEGATIVE (NEGATIVE); OCCULT BLOOD,URINE NEGATIVE (NEGATIVE); PH,URINE 5.5 PH (5.0-7.5); PROTEIN,URINE 100 mg/dL (NEGATIVE); UROBILINOGEN,URINE 0.2 (NORMAL) E.U./dL (NORMAL)
[2021-05-29 11:09] LABS: CLARITY,URINE CLEAR (CLEAR)
[2021-05-29 11:12] LABS: BACTERIA,URINE Rare /HPF (None Seen); MUCUS,URINE Few Strands; RBC,URINE None Seen /HPF (0-5); SQUAMOUS EPITHELIAL CELL,UR RARE Squamous (<= Few); WBC,URINE 0-3 /HPF (0-3)
== END 2021-05-29 10:59 | disposition home or self-care (01) ==
LOC: LAB.R 10:58
PROVIDERS: ATTEND Internal Medicine
DX: R30.0 Dysuria (principal)
CPT/HCPCS: 81001; 81003; 87086

== ENCOUNTER 2021-06-12 11:05 | Outpatient (CLI) | payer MEDICARE, OTHER ==
--- NOTE | 2021-06-12 15:42 | CONSULTATION NOTE ---
Palliative Care Follow Up - Referral Referring Provider: Dr. Morro Nunez Time of Visit: [id number] Referral setting: Home Referral Reason: Dementia/Constipation/Debility - Information Sources Records reviewed: Previous records reviewed History/Review of Systems obtained from: Patient, Family (spouse, Jason), Caregiver (Gela) Exam limitations: Clinical condition (Advanced Dementia) - History of Present Illness Update Brief HPI Update: This is a 80-year-old gentleman who is seen in evaluation today in follow-up due to BPH, diabetes mellitus type 2 and generalized functional decline due to advancing dementia. Provider wore N95 mask. Seen in the presence of caregiver and spouse Jason. The patient has perked back up after some recent decline functionally decline for hospice services admission as an on admit in May 2021. His appetite has improved and this is noted by having smaller items in size the patient is more inclined to eat her caregiver and spouse's report. They are also providing a snack in the evenings This is assisting with sustaining his blood sugar. His range has been 98 is the lowest and 165 is the highest. Average has been 125 before meals over the last 18 days. This is after his insulin 70/30 mix was decreased to 20 units once per day. His overall intake is also improved with f requency. He continues with some issues with constipation but since introduction of MiraLAX approximately one fourth of a cap his bowel movement pattern is better. He is typically going twice per week and remains "sludge" but is not soiling himself. He is continuingly reporting he is having frequency and will void every 3 hours on average. However, if he is distracted then he is no longer aware that he needs to void. No dysuria reported. No decrease in amount of urine upon voiding. Caregiver and spouse report that the patient often complains about being cold and will wear shoes to bed. He keeps on multiple layers. Today during his bath, caregiver noted some mild erythema to under his left inner groin folds and she applied bag balm to the site. Today, the patient was also reporting some increased pain rating 6 out of 10 after his pain has been very stable for the last several weeks. He had an as needed hydrocodone administered and was resting in bed during this visit. He is reporting that his back had some increased discomfort and upon assessment it had reduced to 4 out of 10 related to pain. Continues to be followed by PCP regarding pain management. Past Medical History: Patient has a past medical history of hypertension, hyperlipidemia, coronary artery disease, severe sleep apnea diagnosed 2002 with CPAP use, dementia, diabetes mellitus type 2, BPH, chronic sinusitis, claustrophobia, osteoarthritis, chronic back pain, history of CABG, pulmonary embolism in October 2019 (on Coumadin 10/2019 to 05/2020). +COVID-19 vaccine and s/p booster 12/2020 Social History - Living Situation Living arrangement: At home Living Situation: With spouse/s.o. Support System: Patient and spouse have been for approximately 25 years. They have no children together. The patient has 3 children from his first marriage, but they have been estranged for many years and do not communicate. The patient grew up in [place], [place]. They relocated to [facility] in 2010. Caregiver, Gela, comes 3 days/week for 4 hours at a time--typically Thursday, Thursday and Thursday. Medications/Allergies - Medications Home Medications: Ambulatory Orders Medication Instructions Recorded Confirmed Losartan Potassium 100 mg PO DAILY 03/04/16 01/26/20 Omeprazole 20 mg PO DAILY 03/04/16 01/26/20 carvediloL [Carvedilol] 3.125 mg PO BID 03/04/16 01/26/20 Tamsulosin HCl [Flomax] 0.8 mg PO DAILY 11/06/19 01/26/20 Hydrocodone/Acetaminophen [[place] 3 tab PO BID PRN MDD prescribed by 01/26/20 01/26/20 5-325 Tablet] PCP polyethylene glycoL 3350 [Miralax] 17 g PO DAILY 01/26/20 01/26/20 Finasteride [Proscar] 5 mg PO DAILY 03/10/20 03/10/20 Gabapentin [Neurontin] 200 mg PO QPM 03/10/20 Insulin Aspart Prot/Insuln Asp 20 units SQ DAILY 05/29/20 05/29/20 [Insulin Aspart Prot ([id number])] Morphine Sulfate [Ms Contin] 15 mg PO TID MDD prescribed by PCP 02/27/21 02/27/21 Naloxone HCl Nasal [Narcan Nasal] PRN 02/27/21 - Allergies Allergies/Adverse Reactions: Allergies Allergy/AdvReac Type Severity Reaction Status Date / Time atenolol AdvReac Mild Nausea Verified 06/26/20 15:52 oxycodone AdvReac Unknown Verified 06/26/20 15:52 Review of Systems - Constitutional Constitutional: reports: Weight loss (Right MAC 31cm 06/12/21; Right MAC 31cm 05/17/21). denies: Fever, Poor appetite (Recently improved, see HPI) - Eyes Eyes: reports: Corrective lenses - Ears, Nose & Throat Ears, Nose & Throat: reports: Hearing loss. denies: Hearing aids - Cardiovascular Cardiovascular: denies: Chest pain, Edema (no BLE edema, off oral diuretic) - Respiratory Respiratory: denies: Wheezing - Gastrointestinal Gastrointestinal: reports: Constipation (improved from baseline, long standing history of "blow outs" see HPI), Other (Recent increase in meal intake). denies: Abdominal pain, Nausea, Vomiting - Genitourinary Genitourinary: reports: Incontinence (intermittent), Other (BPH). denies: Dysuria - Musculoskeletal Musculoskeletal: reports: Back pain, Stiffness, Assistive devices, Transfer issues - Integumentary Integumentary: reports: Rash (Left inner groin) - Neurological Neurological: reports: General weakness, Memory problems - Psychiatric Psychiatric: denies: Depression - Endocrine Endocrine: reports: Diabetes type 2 (HgA1C 7.7% on 12/2020) - Hematologic/Lymphatic Hematologic/Lymph: reports: Other (History of PE 10/2019, coumadin has been discontinued by PCP). denies: Recurrent infections - All Other Systems All Other Systems: reports: Reviewed and negative (Review of systems supplemented by patient's , Jason and caregiver, Gela.) Physical Exam - Vital Signs Temperature: 36.7 C Pulse Rate: 69 O2 Saturation: 96 (on RA) - Physical Exam General Appearance: positive: No acute distress, Alert, Other ( b/l temporal wasting noted-) Eyes Bilateral: positive: Normal inspection ENT: positive: No signs of dehydration Neck: positive: Trachea midline Cardiovascular: positive: Regular rate & rhythm, Systolic murmur (2/6 FLORES) Respiratory: positive: No respiratory distress, Breath sounds nml Abdomen: positive: Non-tender, Soft, Nml bowel sounds, Other (+round) Skin: positive: Rash (Left inner groin c/w candidasis) Extremities: positive: No pedal edema Neurologic/Psychiatric: positive: Mood/affect nml, Disoriented to time, Weakness Palliative Care - POLST Patient has POLST: Yes POLST Status: DNR, Selective Treatment Pain: Comment (Overall has had improved with MS COntin 15mg TID by PCP--today re cent flare of back pain, improved with breakthough pain medication) Anorexia: Mild (1-3) Constipation: Yes, Opoid induced, Managed - Palliative Care Discussion: Patient's voiding pattern after increased frequency and potential decreased amounts has resolved in regards to amounts and return back to baseline. Underlying BPH is likely contributing. The patient has had a decrease in his overall oral intake in the last few weeks and his MAC is presently stable. Suspect that he has likely plateaued at the p resent time but continue to expect him to wax and wane given advancement of his dementia and his caregiver as well as his spouse recognize this. Impression and Recommendations - Palliative Care Impression: This is a 80-year-old man with dementia, diabetes mellitus type 2, constipation due to opioid therapy and chronic pain due to osteoarthritis. Palliative care to continue provide care coordination, symptom management and anticipatory guidance with transition to hospice services when medically appropriate. Recommendations/Counseling Done: 1. Diabetes mellitus type 2. Resolution of previous episodes of hypoglycemia. Last hemoglobin A1c 7.7% 2020. His Novolin 70/30 mix was reduced to 20 units da anuradha with stabilization of his blood glucose levels. Continue to obtain blood glucose levels fasting daily. Goal is to have blood glucose level above 80. Last seen by ophthalmology in 2020. Given the patient's advanced age and chronic comorbidities a hemoglobin A1c of 7 to 8% is the goal. 2. Constipation. Sedentary lifestyle and opioid therapy contributing. Has stabilized with initiation of MiraLAX utilizing one quarter cap daily with a goal to have a bowel movement 2-3 times per week. Continue to monitor and adjust bowel regimen. 3. Osteoarthritic pain, chronic. Patient today experiencing some increased back pain that has stabilized with initiation of as needed hydrocodone/acetaminophen. Continue MS Contin 15 mg 3 times daily as prescribed by PCP. Continue hydrocodone 5 mg/acetaminophen 325 mg as prescribed by PCP. Has Narcan in the home. Chronic pain management performed by PCP Per spouse request. 4. Dementia. Chronic. Progressive. Fall precautions. On no disease modifying agents. Requiring assistance with ambulation with contact-guard. Given the patient's advanced age and chronic comorbidities a gradual decline is expected. 5. Benign prostate hypertrophy. We will have noticed symptoms but will be reduced if the patient is distracted therefore, some of his dementia is contributing to recognizing voiding symptoms. Continue Proscar 5 mg daily in addition to tamsulosin 0.8 mg daily. Continue to encourage double voiding. Continue to monitor. 6. Candidasis left groin. Offered rx for nystatin, however declined with preference for OTC bag balm but aware to contact palliative care if desire in the future. Total time spent 50 minutes with greater than 50% of the spent in counseling coronation of care with the patient, spouse, and caregiver; examination of the patient and evaluation of skin; supportive and empathetic listening to spouse and caregiver; and anticipatory guidance. Disclaimer: The chart note was formulated using voice recognition technology and unfortunately sound alike errors may occur.
== END 2021-06-12 11:06 | disposition home or self-care (01) ==
LOC: PC 11:05
PROVIDERS: ATTEND Nurse Practitioner Family
DX: Z51.5 Encounter for palliative care (principal); K59.03 Drug induced constipation; T40.2X5A Adverse effect of other opioids, initial encounter; E11.9 Type 2 diabetes mellitus without complications; F03.90 Unspecified dementia, unspecified severity, without behavioral disturbance, psychotic disturbance, mood disturbance, and anxiety; N40.0 Benign prostatic hyperplasia without lower urinary tract symptoms; M47.9 Spondylosis, unspecified; B37.2 Candidiasis of skin and nail; Z79.4 Long term (current) use of insulin; Z79.891 Long term (current) use of opiate analgesic; Z79.899 Other long term (current) drug therapy; Z66 Do not resuscitate
CPT/HCPCS: 99349

== ENCOUNTER 2021-07-10 13:50 | Outpatient (CLI) | payer MEDICARE, OTHER ==
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
== END 2021-07-10 13:51 | disposition home or self-care (01) ==
LOC: PC 13:50
PROVIDERS: ATTEND Nurse Practitioner Family
DX: Z51.5 Encounter for palliative care (principal); E11.9 Type 2 diabetes mellitus without complications; Z79.4 Long term (current) use of insulin; E46 Unspecified protein-calorie malnutrition; K59.03 Drug induced constipation; T40.2X5A Adverse effect of other opioids, initial encounter; M47.819 Spondylosis without myelopathy or radiculopathy, site unspecified; M17.11 Unilateral primary osteoarthritis, right knee; F03.90 Unspecified dementia, unspecified severity, without behavioral disturbance, psychotic disturbance, mood disturbance, and anxiety; Z66 Do not resuscitate
CPT/HCPCS: 99349